=== PATIENT | female | born 1945 | race Caucasian/White ===

== ENCOUNTER 2025-10-02 09:46 | Inpatient (IN) ==
--- NOTE | 2025-10-02 10:26 | ED Physician Documentation ---
History of Present Illness Stated complaint Stated Complaint: GI Chief complaint Chief Complaint: Abd Pain Additonal information Additional information: Patient is a 72-year-old female who does not cite an extensive medical history presenting with multiple days of abdominal distension and pain. She states that she lives alone and about 11 days ago was when she had her last bowel movement. She states that since that time she has had persistent pain in her abdomen and significant distention. She states that due to her symptoms she has had no ability to get out of her house, has not had any food to eat or drink for the last couple days. She did not have any more groceries in her home. She states her abdominal pain is a 9 out of 10. She states that she has not been urinating much. She denies fever or chills. Denies chest pain or shortness of breath. She states that she has never had the symptoms before. She denies significant history of intra-abdominal problems, but does state that she has a surgical history of hysterectomy previously. She otherwise states that she has no problems with her heart, lungs, kidneys, liver. She has never had liver failure. Review of Systems Status of ROS: See HPI Meds/Allgy Home Medications Ambulatory Orders Medication Instructions Recorded Confirmed atorvastatin 20 mg tablet 20 mg PO QPM 10/02/25 valsartan 160 mg tablet 160 mg PO QAM 10/02/2510/02 valsartan 80 mg tablet 80 mg PO QAM 10/02/25 Allergies Allergies Allergy/AdvReac Type Severity Reaction Status Date / Time diphenhydramine (From Allergy Mild Paranoid Verified 10/02/25 10:03 Benadryl) PFSH Active Problems All Active Problems (Updated 10/02/25 @ 19:13 by Dallas Waters DO) Goals of care, counseling/discussion (Acute) Hypophosphatemia (Acute) Spinal stenosis (Acute) Hypertension (Chronic) Hypokalemia (Acute) Dehydration (Acute) Sigmoid volvulus (Acute) Medical History Medical History (Updated 10/02/25 @ 19:13 by Dallas Waters DO) Hypercholesterolemia Surgical History Surgical History (Updated 10/02/25 @ 17:15 by Lilian Townsend CRNA) H/O: hysterectomy Social History Social History (Updated 11/26/25 @ 17:18 by Lilian Townsend CRNA) Smoking Status: Former smoker If you are a former smoker, when did you quit? (Date/Year): 1980 Level: Independent Do you feel safe in your home environment?: Yes History of physical, verbal, emotional, or financial abuse?: No ETOH Use: None Substance Use: denies use Exam Exam Vital Signs: Vital Signs x48h Temp Pulse Resp BP Pulse Ox 10/02/25 11: 99 18 171/107 H 97 10/02/25 10:56 92 18 159/96 H 97 10/02/25 10:22 91 18 161/90 H 97 10/02/25 10:07 95 18 120/89 97 10/02/25 10:04 36.8 C 110 H 20 104/70 99 Constitutional Appears cachectic, pale. Dry lips, appears dry with dry mucous memranes. HENMT normocephalic Eyes PERRL and conjunctivae normal Neck/C-Spine cervical full ROM noted Respiratory breath sounds equal bilaterally, normal respiratory effort, clear to auscultation bilaterally and no wheezes Cardiovascular normal heart rate noted, regular rhythm noted, no murmur and peripheral pulses 2+ throughout Gastrointestinal Significant distension to her abdomen, tympanitic, with decreased bowl sounds. Tenderness to palpation diffusely throughout her abdomen. Genitourinary no CVA tenderness Neurology Oriented x3. CN II-XII intact. Moving all extremities. Sensation grossly intact throughout habitus. Psychiatry Intermittently does not follow with conversation well, trails off at times in discussion Skin Pallor present. Results Vitals Vitals: Vital Signs - 24 hr 10/02/25 10:04 10/02/25 10:07 10/02/25 10:22 Temperature 36.8 C Temperature Source Temporal Artery Scan Pulse Rate 110 H 95 91 Respiratory Rate 20 18 18 Blood Pressure 104/70 120/89 161/90 H O2 Saturation 99 97 97 O2 Source Room air Room air Room air Pain Intensity 7 9 9 10/02/25 10:40 10/02/25 10:56 10/02/25 11:26 Temperature Temperature Source Pulse Rate 92 99 Respiratory Rate 18 18 Blood Pressure 159/96 H 171/107 H O2 Saturation 97 97 O2 Source Room air Room air Pain Intensity 9 7 7 10/02/25 12:30 10/02/25 12:56 10/02/25 13:14 Temperature Temperature Source Pulse Rate 97 107 H Respiratory Rate 18 22 Blood Pressure 152/93 H 166/102 H O2 Saturation 97 96 O2 Source Room air Room air Pain Intensity 5 9 10/02/25 13:16 10/02/25 13:26 Temperature Temperature Source Pulse Rate 102 H Respiratory Rate 19 Blood Pressure 153/90 H O2 Saturation 98 O2 Source Room air Pain Intensity 9 8 Oxygen O2 Source Room air Labs Labs: Laboratory Tests 10/02/25 10/02/25 10:26 10:44 WBC 20.6 H RBC 4.61 Hgb 14.4 Hct 39.9 MCV 86.6 MCH 31.2 H MCHC 36.1 H RDW 11.9 L Plt Count 451 H MPV 8.9 Neut # (Auto) Not Reportable Lymph # (Auto) Not Reportable [place] # (Auto) Not Reportable Eos # (Auto) Not Reportable Baso # (Auto) Not Reportable Absolute Nucleated RBC Not Reportable Total Counted 100 Band Neuts % (Manual) 0 Abnorm Lymph % (Manual) 0 Metamyelocytes % 1 H Nucleated RBC % Not Reportable Neutrophils # (Manual) 17.7 H Lymphocytes # (Manual) 1.6 Monocytes # (Manual) 1.0 Eosinophils # (Manual) 0.0 Basophils # (Manual) 0.0 Differential Comment MANUAL DIFFERENTIAL WBC Morphology 1+ SMUDGE CELLS Platelet Estimate INCREASED (>450,000) Platelet Morphology NORMAL APPEARANCE RBC Morph Micro Appear NORMAL APPEARANCE Sodium 131 L Potassium 2.1 L* Chloride 94 L Carbon Dioxide 27 Anion Gap 10.0 BUN 29 H Creatinine 0.8 Estimated GFR (MDRD) 69 L Glucose 108 H Lactic Acid 0.9 Calcium 10.3 Total Bilirubin 1.1 H AST 27 ALT 35 Alkaline Phosphatase 83 Total Protein 6.2 L Albumin 4.1 Globulin 2.1 Albumin/Globulin Ratio 2.0 Lipase 21 PD Medical Decision Making ED course ED course: Assessment: Patient Is a 72 year old female with no reported past medical history presenting with 11 days of persistent abdominal distension and pain. Appears cachectic on pale on rival. Differential: includes but is not limited to, large bowel obstruction, SBO, sigmoid volvulus, bowel perforation, colon cancer, etcetera. Work up: CBC with the White Count of 20.6. CMP with notable decrease in potassium to 2.1. Sodium 131. BUN 29. Lactic acid 0.9. Cr 0.8. Lipase wnl. CT abdomen demonstrates acute sigmoid volvulue, right sided hydronephrosis. No evidence of perforation. Treatment: Fentanyl, 40 meq IV potassium Discussion: I discussed her presentation with phonograph cartridge assembler surgeon, who initially attempted to reduce her sigmoid volvulus at the bedside. This was unsuccessful. Therefore, patient was admitted to ICU with surgical team for electrolyte repletion, and likely surgical intervention. Patient appeared gravely ill during my evaluation though she remained hemodynamically stable. During my shift she was transferred to the ICU. Discharge Plan Discharge Patient Disposition: [facility] DC/Xfer Condition: Serious Clinical Impression: Sigmoid volvulus Interventions: ED Admission Assessment Last Done: 10/02/25 15:20 Vitals documented within 30 minutes of discharge?: Yes
[2025-10-02] MEDS: SODIUM CHLORIDE 0.9% 1,000 ML IV STA (10:29)
[2025-10-02 10:36] LABS: HCT - HEMATOCRIT 39.9 % (37.0-47.0); HGB - HEMOGLOBIN 14.4 g/dL (12.0-16.0); MEAN PLATELET VOLUME 8.9 fL (7.9-10.8); PLT - PLATELET COUNT 451 10^3/uL (130-450); RED CELL DISTRIBUTION WIDTH 11.9 % (12.0-15.0)
[2025-10-02 10:37] LABS: ABNORMAL LYMPHS % (MANUAL) 0 %; BAND NEUTROPHILS % (MANUAL) 0 %; BASOPHILS # (MANUAL) 0.0 10^3/uL (0-0.1); EOSINOPHILS # (MANUAL) 0.0 10^3/uL (0-0.7)
[2025-10-02] MEDS: fentaNYL 100 MCG/2 ML VIAL IVP STA ×2 (10:40→13:16)
[2025-10-02 10:53] LABS: LYMPHOCYTES # (MANUAL) 1.6 10^3/uL (1.5-3.5); LYMPHOCYTES % (MANUAL) 8 %; METAMYELOCYTES % (MANUAL) 1 %; MONOCYTES # (MANUAL) 1.0 10^3/uL (0.0-1.0); NEUTROPHILS # (MANUAL) 17.7 10^3/uL (1.5-6.6)
[2025-10-02 10:54] LABS: PLATELET ESTIMATE, MANUAL INCREASED (>450,000) (NORMAL); PLATELET MORPHOLOGY NORMAL APPEARANCE (NORMAL); RBC MORPHOLOGY (MULTIPLE) NORMAL APPEARANCE (NORMAL); WBC MORPHOLOGY (MULTIPLE) 1+ SMUDGE CELLS (NORMAL)
[2025-10-02 11:05] LABS: ALT ALANINE AMINOTRANSFERASE 35.0 IU/L (10-60); AST ASPARTATE AMINOTRANSFERASE 27.0 IU/L (10-42); BUN - BLOOD UREA NITROGEN 29.0 mg/dL (6-20); CARBON DIOXIDE - CO2 27.0 mmol/L (21-32); CREATININE 0.8 mg/dL (0.6-1.3); GFR - MDRD 69.0 (>89)
[2025-10-02] MEDS: POTASSIUM CHLOR 10 MEQ/100 ML 10 MEQ/100 ML BAG IV SCH (11:18)
--- NOTE | 2025-10-02 12:22 | CT Report ---
PROCEDURE: CT Abdomen/Pelvis W INDICATIONS: Concern for bowel obstruction CONTRAST: PROCEDURE: CT Abdomen/Pelvis W INDICATIONS: Concern for bowel obstruction CONTRAST: [id number] 100ML TECHNIQUE: After the administration of intravenous contrast, a CT scan of the abdomen and pelvis was performed. Images were recorded and evaluated at appropriate window settings. Reformats: coronal and sagittal. For radiation dose reduction, the following was used: automated exposure control, adjustment of mA and/or kV according to patient size. COMPARISON: None. FINDINGS: Image quality: Diagnostic. Lower chest: Trace pleural effusion and compressive atelectasis. Coronary calcifications. Liver: Segment 7 simple cyst. Gallbladder: Gallbladder extrinsically compressed. Mild intrahepatic biliary duct dilation. Biliary tree: No intrahepatic or extrahepatic dilation, accounting for age. Spleen: No splenomegaly. Pancreas: No pancreatic ductal dilation. Adrenals: No adrenal nodule. Kidneys and ureters: Mild right hydronephrosis and distention of the proximal ureter likely due to extrinsic compression. Stomach and bowel: Sigmoid volvulus at the rectosigmoid junction with maximum colonic diameter 10.5 cm. No evidence of perforation. Small bowel is decompressed. Appendix: Normal. Peritoneum: No pathologic free fluid. Lymph nodes: No central or retroperitoneal adenopathy. Vessels: No infrarenal aortic aneurysm. Reproductive organs: Unremarkable. Bladder: No abnormal bladder wall thickening. No calcified bladder stones. Pelvic lymph nodes: No adenopathy by size criteria. Bones: No aggressive osseous lesion. Other: Abdominal wall is intact. IMPRESSION: Acute sigmoid volvulus without evidence of perforation but with extrinsic compression of the right ureter with mild right hydronephrosis. Acute findings discussed with Dr. Rios at approximately 12:15 p.m. PST 11/01/2025. Reviewed by: Andrae Padilla MD on 10/02/2025 12:18 PM PST Approved by: Andrae Padilla MD on 10/02/2025 12:18 PM PST Station ID: [id number]
--- NOTE | 2025-10-02 13:11 | CONSULTATION NOTE ---
Chief Complaint Chief Complaint Chief Complaint: Abdominal pain History of Present Illness History of Present Illness HPI Comment/Other: 72 yo F w/out significant past medical history who presented on 10/02 with multiple days of abdominal distension and pain. She states that she lives alone, and about 11 days ago was when she had her last bowel movement, that bowel movement she states though was only like clear mucous. Since that time she has had persistent pain in her abdomen (07/17), and significant distention. Due to her symptoms she has had no ability to get out of her house and has not had anything to eat or drink for the last couple days. She also cites decreased urination. She denies fever, chills, chest pain or shortness of breath. She states that she has never had the symptoms before. She denies significant history of intra-abdominal problems, but does state that she has a surgical history of hysterectomy. She otherwise states that she has no problems with her heart, lungs, kidneys, liver. PFSH Active Problems All Active Problems (Updated 10/02/25 @ 13:22 by David Prasad MD) Hypokalemia (Acute) Dehydration (Acute) Sigmoid volvulus (Acute) Social History Social History Smoking Status: Unknown if ever smoked Do you feel safe in your home environment?: Yes History of physical, verbal, emotional, or financial abuse?: No Meds/Allgy Allergies Allergies Allergy/AdvReac Type Severity Reaction Status Date / Time diphenhydramine (From Allergy Mild Paranoid Verified 10/02/25 10:03 Benadryl) Results Lab Results Lab results reviewed: Yes 10/02/25 10:26 10/02/25 10:44 Other Lab Results: Lab Results x24hrs 10/02/25 10/02/25 Range/Units 10:44 10:26 WBC 20.6 H (4.8-10.8) x10^3/uL RBC 4.61 (4.20-5.40) 10^6/uL Hgb 14.4 (12.0-16.0) g/dL Hct 39.9 (37.0-47.0) % MCV 86.6 (81.0-99.0) fL MCH 31.2 H (27.0-31.0) pg MCHC 36.1 H (32.0-36.0) g/dL RDW 11.9 L (12.0-15.0) % Plt Count 451 H (130-450) 10^3/uL MPV 8.9 (7.9-10.8) fL Neut # (Auto) Not Reportable Lymph # (Auto) Not Reportable [place] # (Auto) Not Reportable Eos # (Auto) Not Reportable Baso # (Auto) Not Reportable Absolute Nucleated RBC Not Reportable Total Counted 100 Band Neuts % (Manual) 0 (0 - 10) % Abnorm Lymph % (Manual) 0 % Metamyelocytes % 1 H ( - 0) % Nucleated RBC % Not Reportable Neutrophils # (Manual) 17.7 H (1.5-6.6) 10^3/uL Lymphocytes # (Manual) 1.6 (1.5-3.5) 10^3/uL Monocytes # (Manual) 1.0 (0.0-1.0) 10^3/uL Eosinophils # (Manual) 0.0 (0-0.7) 10^3/uL Basophils # (Manual) 0.0 (0-0.1) 10^3/uL Differential Comment MANUAL DIFFERENTIAL WBC Morphology 1+ SMUDGE CELLS (NORMAL) Platelet Estimate INCREASED (>450,000) (NORMAL) Platelet Morphology NORMAL APPEARANCE (NORMAL) RBC Morph Micro Appear NORMAL APPEARANCE (NORMAL) Sodium 131 L (135-145) mmol/L Potassium 2.1 L* (3.5-4.5) mmol/L Chloride 94 L (101-111) mmol/L Carbon Dioxide 27 (21-32) mmol/L Anion Gap 10.0 (6-13) BUN 29 H (6-20) mg/dL Creatinine 0.8 (0.6-1.3) mg/dL Estimated GFR (MDRD) 69 L (>89) Glucose 108 H (74-104) mg/dL Lactic Acid 0.9 (0.5-2.2) mmol/L Calcium 10.3 (8.5-10.3) mg/dL Total Bilirubin 1.1 H (0.2-1.0) mg/dL AST 27 (10-42) IU/L ALT 35 (10-60) IU/L Alkaline Phosphatase 83 (42-121) IU/L Total Protein 6.2 L (6.4-8.9) g/dL Albumin 4.1 (3.2-5.5) g/dL Globulin 2.1 (2.1-4.2) g/dL Albumin/Globulin Ratio 2.0 (1.0-2.2) Lipase 21 (11-82) U/L Diagnostic Imaging Results Diagnostic Imaging Results: positive Final report reviewed and Read independently Review of Systems Status of ROS: 10 or more systems reviewed and unremarkable except as noted in history and below Exam Exam Vital Signs: Vital Signs x48h Temp Pulse Resp BP Pulse Ox 10/02/25 12:30 97 18 152/93 H 97 10/02/25 11:26 99 18 171/107 H 97 10/02/25 10:56 92 18 159/96 H 97 10/02/25 10:22 91 18 161/90 H 97 10/02/25 10:07 95 18 120/89 97 10/02/25 10:04 36.8 C 110 H 20 104/70 99 Constitutional abnormal general appearance (frail appearing) and no apparent distress HENMT normocephalic and head/scalp atraumatic Eyes Dried lips with signs of severe dehydration. Neck/C-Spine visual inspection normal Respiratory normal respiratory effort Cardiovascular normal heart rate noted and regular rhythm noted Gastrointestinal Abdomen significantly distended and tympanitic with tenderness to palpation. Extremities normal to inspection Neurology GCS 15 Psychiatry oriented x3 and cooperative Skin skin color normal Conclusion/Plan Problem List (1) Sigmoid volvulus: (2) Dehydration: (3) Hypokalemia: Plan 72 yo F w/out significant past medical history who presented on 10/02 with multiple days of abdominal distension and pain. On physical exam she has significant abdominal distension and tympany concerning for obstruction or free air. CT demonstrates acute sigmoid volvulus without signs of perforation. - Will attempt bedside decompression with rigid proctoscopy - If successful will place decompressive tube and admit for monitoring with staged sigmoidectomy - If unsuccessful will plan for OR later when safe for anesthesia - Recommend ICU admission for correction of her hypokalemia - Will discuss with medicine - Discussed with patient and ED provider Lab Results Lab results reviewed: Yes 10/02/25 10:26 10/02/25 10:44 Diagnostic Imaging Results Diagnostic Imaging Results: positive Final report reviewed and Read independently
--- NOTE | 2025-10-02 13:48 | HISTORY & PHYSICAL EXAMINATION ---
Chief Complaint Chief Complaint Chief Complaint: Abdominal distension, constipation History of Present Illness Admitted From Admitted From:: ED History Obtained From Records Reviewed: [facility] History obtained from: EMR, Patient, Surgeon, ED Provider Exam Limitations: Patient is fatigued and disoriented from multiple procedures, Narcotics History of Present Illness HPI Comment/Other: Exam is limited as the patient had just received IV Dilaudid for pain. She had just been through a central line placement as well as a proctoscopic attempted decompression. Yesenia is a 80-year-old female with past medical history of hypertension hyperlipidemia who presents with 2 weeks of constipation. She says that she had abdominal distention, constipation, and abdominal pain that started around 09/20. This is gotten worse over that time. She is unclear on why she has not come to seek care earlier. She says that most of her primary care is on the [facility], and she is unable to get over there for regular visits. She had a fall on the without any subsequent injury. But she was unable to get up given her abdominal pain and general malaise. Her pain and weakness have progressed over the last 2 weeks. She has been unable to leave the house. She has not eaten or drank anything since she ran out of groceries 2 to 3 days ago. She is not urinating. She denies any fever/chills, chest pain, dyspnea, nausea or vomiting. With regard to her history, she says that she is generally pretty healthy. She sees a farmworker with [facility]. She has primary care through [facility]. Her only medicines are valsartan and atorvastatin. She says she was only recently started on atorvastatin. She has had a hysterectomy previously. She was told after her last colonoscopy that she may have "an elongated colon", but she "never followed up on it". She is very perseverant about the fact that she has been working on finishing up her will over the last month. She thinks it is done, still needs to sign it. She wishes to be full code this hospitalization so she can get home and sign her well. She is quite ruminative about this. Since getting to the hospital, she was found to have a sigmoid volvulus on imaging. General surgery has been consulted. They attempted a proctoscopic decompression at bedside. This was unsuccessful. She is also found to be hypokalemic. She is receiving potassium supplementation before being taken back for sigmoidectomy by general surgery. Central line was placed by the anesthesiology team. Meds/Allgy Home Medications Ambulatory Orders Medication Instructions Recorded Confirmed atorvastatin 20 mg tablet 20 mg PO QPM 10/02/25 valsartan 160 mg tablet 160 mg PO QAM 10/02/2510/02 valsartan 80 mg tablet 80 mg PO QAM 10/02/25 Allergies Allergies Allergy/AdvReac Type Severity Reaction Status Date / Time diphenhydramine (From Allergy Mild Paranoid Verified 10/02/25 10:03 Benadryl) PFSH Active Problems All Active Problems (Updated 10/02/25 @ 19:13 by Dallsa Waters DO) Goals of care, counseling/discussion (Acute) Hypophosphatemia (Acute) Spinal stenosis (Acute) Hypertension (Chronic) Hypokalemia (Acute) Dehydration (Acute) Sigmoid volvulus (Acute) Medical History Medical History (Updated 10/02/25 @ 19:13 by Dallas Waters DO) Hypercholesterolemia Surgical History Surgical History (Updated 10/02/25 @ 17:15 by Lilian Townsend CRNA) H/O: hysterectomy Social History Social History (Updated 10/02/25 @ 17:18 by Lilian Townsend CRNA) Smoking Status: Former smoker If you are a former smoker, when did you quit? (Date/Year): 1980 Level: Independent Do you feel safe in your home environment?: Yes History of physical, verbal, emotional, or financial abuse?: No ETOH Use: None Substance Use: denies use Exam Exam Vital Signs: Vital Signs x48h Temp Pulse Pulse Resp BP BP Pulse Ox 10/02/25 19:00 37.1 C 99 21 152/79 H 96 10/02/25 18:00 37.1 C 103 H 23 144/83 H 96 10/02/25 17:15 114 H 22 141/89 H 98 10/02/25 17:00 113 H 20 139/103 H 98 10/02/25 16:00 94 23 163/89 H 97 10/02/25 15:50 36.7 C 96 26 H 165/90 H 96 10/02/25 15:20 94 18 162/86 H 98 10/02/25 15:02 95 18 166/85 H 97 10/02/25 14:30 99 18 161/64 H 97 10/02/25 14:00 97 18 162/85 H 97 10/02/25 14:00 100 18 164/94 H 97 10/02/25 13:26 102 H 19 153/90 H 98 10/02/25 12:56 107 H 22 166/102 H 96 10/02/25 12:30 97 18 152/93 H 97 10/02/25 11:26 99 18 171/107 H 97 GEN: No acute distress HEENT: NC/AT, normal appearance of external ears and nose. Hearing baseline. Mucous membranes are moist. Cardiac: Rapid but regular rhythm. No significant murmurs appreciated. No lower extremity edema. Pulm: Lungs CTA bilaterally, no cough, no wheezes. No adventitial lung sounds. Normal effort on room air. Abdomen: Distended taut abdomen. Tender to palpation diffusely. Tympanic. Extremities: Moves all 4 extremities equally. Normal tone. Neuro: Face symmetric, CN II through XII intact grossly. No focal neurologic deficits. Moves all extremities. Speech is fluent. Psych: Mood euthymic. Ruminative. Conclusion/Plan Problem List (1) Sigmoid volvulus: Plan: Patient presenting with nearly 2 weeks of constipation, progressive abdominal distention and pain. Found to have sigmoid volvulus with distal transition point on CT. Unsuccessful proctoscopic decompression attempted in the ED. Plan to normalize her hypokalemia as below, and then take for sigmoidectomy. - Discussed with general surgery, will admit to the medicine service as inpatient - General Surgery following - Keep n.p.o. - Pain management with oral and IV narcotics available - May need to start on TPN (has central line), may have delay of return for bowel function - Surgery likely this evening. (2) Dehydration: Plan: Patient has not had anything to eat or drink for 2 to 3 days prior to this hospitalization as she was unable to leave her house and ran out of groceries. Her labs actually look pretty good all things considered. Normal renal function. Hypokalemia as below additional hypophosphatemia. - Replenish electrolytes as below - On LR at 83.3 an hour - Likely TPN starting tomorrow as above (3) Hypokalemia: (4) Hypophosphatemia: Plan: Patient with K of 2.1 on admission. Phos of 1.5. In the setting of no oral intake in the last days before admission. Normal renal function. Creatinine 0.6. Central line placed by anesthesia 10/02 - Admit to ICU, on continuous telemetry monitoring - Replenish potassium 20 mEq/h x 3 - Repeat K at end of treatment - BMP a.m. - Sodium Phos repletion (5) Hypertension: Plan: Patient hypertensive in the setting of pain. She is unsure if she took her valsartan this morning. Think she did. Prior to arrival, she takes valsartan 240 mg/day. - Will hold antihypertensives at this time pending surgery - No need to acutely treat hypertension (6) Hypercholesterolemia: Plan: Only recently started on atorvastatin for primary prevention. She is on atorvastatin 20 mg every afternoon. - Will hold atorvastatin 20 mg at this time. (7) Goals of care, counseling/discussion: Plan: Full ACP note to follow tomorrow. Patient is somewhat tangential in her thinking this evening, but is clear in her wishes. She states that she has recently been working on her well. In that she states that she would likely not want any heroic measures. She says she has outlined several scenarios in her paperwork that explain what she would want done. She lives alone. No local family members. Her in 2019. He at home during COVID. They did not have much support. She wants a distant relative Luis Antonio Cardoza to be her surrogate decision maker but only an emergency events. His phone number is [phone]. He does not know she is in the hospital at this time. Despite generally not wanting heroic measures, this evening as she has yet to sign her will, she wishes to remain full code until she can finish arranging her affairs. - Patient is full code/full treatment for this hospitalization. - Luis Antonio Sony only to be contacted in an emergency situation, I will respect the patient's wish - Patient has a fiduciary service to manage her estate, and requested this information be scanned to the chart. It exists as a form titled POLST per the MIXED SIGNAL DESIGN ENGINEER Plan I spent a total of 82 minutes in the care of this patient today. This time was spent reviewing labs, vital signs, imaging, interviewing and examining the patient, and discussing plan of care with them and their other care providers. Patient is facing acute illness that poses a threat to her life and bodily function. She has a sigmoid volvulus and will require surgery. Discussed her case with general surgery today. Discussed her case with the ED, and the decision to admit the patient to the inpatient service in the ICU. [id number] Lab Results Lab results reviewed: Yes 10/02/25 10:26 10/02/25 16:21
--- NOTE | 2025-10-02 14:37 | XRAY Report ---
PROCEDURE: XR Abdomen 1 V INDICATIONS: single view abdomen TECHNIQUE: 1 view of the abdomen were acquired. COMPARISON: CT of abdomen and pelvis from the same day. FINDINGS: Surgical changes and devices: None. Bowel: Air distended bowel loops throughout abdomen. No gross pneumoperitoneum. No obvious transition Soft tissues: No masses; visualized solid organ contours appear normal in size. No suspicious abdominal calcifications. Contrast distended right renal collecting system and right ureter is seen consistent with CT finding of hydroureter. Bones: No suspicious bony abnormalities. IMPRESSION: Obstructive bowel gas pattern consistent with CT finding of sigmoid volvulus. No gross pneumoperitoneum. Right-sided hydronephrosis. Reviewed by: Konstantin Ott MD on 10/02/2025 2:34 PM PST Approved by: Konstantin Ott MD on 10/02/2025 2:34 PM PST Station ID: [id number]
--- NOTE | 2025-10-02 15:00 | PROCEDURE REPORT ---
Hospitalist Procedure Note Procedure Note Procedure Note: Patient was first correctly identified in the emergency room and then was educated on the risks and benefits of undergoing a rigid proctoscopy for relief of her sigmoid volvulus. The consent was then signed and a timeout was performed. Patient was then positioned on the left side and a well-lubricated proctoscope was then inserted into the rectum advanced as far as possible to the sigmoid colon where an area of dusky mucosa and twisting was appreciated. Despite repeat efforts we were unable to relieve the volvulus doing this and eventually discontinued efforts over concerns for continual pressure might cause perforation with the dusky area of mucosa. The proctoscope was then removed and it was discussed with the patient that the procedure was unsuccessful. We then reevaluate the patient's abdomen which again appeared to be distended and ty mpanitic without peritonitis. A abdominal x-ray was then performed which demonstrated again the sigmoid volvulus without signs of perforation and free air. This template was used for the procedure note as its the only appropriate template.
[2025-10-02] MEDS ORDERED: oxyCODONE 5 MG TABLET PO PRN (15:32)
[2025-10-02] MEDS ORDERED: ACETAMINOPHEN 325 MG TABLET PO PRN (15:32)
[2025-10-02] MEDS: POTASSIUM CHLOR 10 MEQ/100 ML 10 MEQ/100 ML BAG IV STA ×3 (15:46)
[2025-10-02] MEDS: HYDROmorphone 0.5 MG/0.5 ML SYRINGE IVP PRN (16:03)
[2025-10-02] MEDS: LACTATED RINGERS 1,000 ML IV SCH (16:13)
--- NOTE | 2025-10-02 16:19 | PHARMACY PROGRESS NOTE ---
Best Possible Medication History Admit Date and Time: 10/02/25 1338 Home Medications Medication Instructions Recorded Confirmed Type atorvastatin 20 mg tablet 20 mg PO QPM 10/02/25 History valsartan 160 mg tablet 160 mg PO QAM 10/02/2510/02 History valsartan 80 mg tablet 80 mg PO QAM 10/02/25 History Processed by: Pharmacy Medications reviewed in ED?: No Medication History completed: Yes Patient Interview: Completed Secondary Source(s): Pharmacy records [facility] Statement: As the person ultimately responsible for medication therapy, providers are able to order a medication from an existing home medication list in [facility] via the "Reconcile Routine" prior to Confirmation of that medication by senior support analyst. Such practice is discouraged except when the physician, in their clinical judgment, deems that a medical need exists for a medication without regard to previous use.
[2025-10-02] MEDS: POTASSIUM CHLOR 20 MEQ/100 ML 20 MEQ/100 ML BAG IV SCH (16:28)
[2025-10-02] MEDS: SODIUM CHLORIDE FLUSH 0.9% 10 ML SYRINGE IVP SCH (16:35)
--- NOTE | 2025-10-02 16:43 | ANESTHESIA PROCEDURE NOTE ---
Anesth Central Line Template Central Line Procedure Date: 10/02/25 Central Line Preparation: Consent Obtained Central line location: Right IJ Central line type: Triple lumen Central line catheter tip site resides: Atrium, right Central line aftercare: Chlorhexidine disc placed, Secured, Placement confirmed, No pneumothorax, No complications, Bundle checklist complete and Pt tolerated well
[2025-10-02 16:45] LABS: PHOSPHORUS 1.5 mg/dL (2.5-5.0)
--- NOTE | 2025-10-02 16:45 | XRAY Report ---
PROCEDURE: XR Chest for Line Placement INDICATIONS: line placement TECHNIQUE: One view of the chest was acquired. COMPARISON: None. FINDINGS: Surgical changes and devices: Right internal jugular central venous catheter tip is in lower SVC/right atrium.. Lungs and pleura: No pleural effusions or pneumothorax. Left basilar atelectasis is seen. No definite focal infiltrate. Mediastinum: Tortuous thoracic aorta. Heart size is mildly enlarged. Bones and chest wall: No suspicious bony lesions. Overlying soft tissues appear unremarkable. IMPRESSION: Right internal jugular central venous catheter tip is in lower SVC/right atrium. No pneumothorax. Left basilar atelectasis. No definite focal infiltrate Reviewed by: Konstantin Ott MD on 10/02/2025 4:42 PM PST Approved by: Konstantin Ott MD on 10/02/2025 4:42 PM PST Station ID: [id number]
--- NOTE | 2025-10-02 16:45 | ANESTHESIA PROCEDURE NOTE ---
Pre-Anesthesia VS, & Labs Diagnosis Surgical Diagnosis:: volvulus Procedure Procedure: large bowel resection with colostomy Vitals Vital Signs: Temp Pulse Resp BP Pulse Ox 36.7 C 94 23 163/89 H 97 10/02/25 15:50 10/02/25 16:00 10/02/25 16:00 10/02/25 16:00 10/02/25 16:00 Is Patient ?: No Lab Results Current Lab Results: Laboratory Tests 10/02/25 10:44: Sodium 131 L, Potassium 2.1 L*, Chloride 94 L, Carbon Dioxide 27, Anion Gap 10.0, BUN 29 H, Creatinine 0.8, Estimated GFR (MDRD) 69 L, Glucose 108 H, Lactic Acid 0.9, Calcium 10.3, Total Bilirubin 1.1 H, AST 27, ALT 35, Alkaline Phosphatase 83, Total Protein 6.2 L, Albumin 4.1, Globulin 2.1, Albumin/Globulin Ratio 2.0, Lipase 21 10/02/25 10:26: WBC 20.6 H, RBC 4.61, Hgb 14.4, Hct 39.9, MCV 86.6, MCH 31.2 H, MCHC 36.1 H, RDW 11.9 L, Plt Count 451 H, MPV 8.9, Neut # (Auto) Not Reportable, Lymph # (Auto) Not Reportable, Glasscock # (Auto) Not Reportable, Eos # (Auto) Not Reportable, Baso # (Auto) Not Reportable, Absolute Nucleated RBC Not Reportable, Total Counted 100, Band Neuts % (Manual) 0, Abnorm Lymph % (Manual) 0, M etamyelocytes % 1 H, Nucleated RBC % Not Reportable, Neutrophils # (Manual) 17.7 H, Lymphocytes # (Manual) 1.6, Monocytes # (Manual) 1.0, Eosinophils # (Manual) 0.0, Basophils # (Manual) 0.0, Differential Comment MANUAL DIFFERENTIAL, WBC Morphology 1+ SMUDGE CELLS, Platelet Estimate INCREASED (>450,000), Platelet Morphology NORMAL APPEARANCE, RBC Morph Micro Appear NORMAL APPEARANCE 10/02/25 10:26 10/02/25 10:44 Meds/Allgy Home Medications Ambulatory Orders Medication Instructions Recorded Confirmed atorvastatin 20 mg tablet 20 mg PO QPM 10/02/25 valsartan 160 mg tablet 160 mg PO QAM 10/02/2510/02 valsartan 80 mg tablet 80 mg PO QAM 10/02/25 Allergies Allergies Allergy/AdvReac Type Severity Reaction Status Date / Time diphenhydramine (From Allergy Mild Paranoid Verified 10/02/25 10:03 Benadryl) PFSH Active Problems All Active Problems (Updated 10/02/25 @ 17:17 by Lilian Townsend CRNA) Spinal stenosis (Acute) Hypertension (Chronic) Hypokalemia (Acute) Dehydration (Acute) Sigmoid volvulus (Acute) Medical History Medical History (Updated 10/02/25 @ 17:17 by Lilian Townsend CRNA) Hypercholesterolemia Surgical History Surgical History (Updated 10/02/25 @ 17:15 by Lilian Townsend CRNA) H/O: hysterectomy Social History Social History (Updated 10/02/25 @ 17:18 by Lilian Townsend CRNA) Smoking Status: Former smoker Do you feel safe in your home environment?: Yes History of physical, verbal, emotional, or financial abuse?: No ETOH Use: None Substance Use: denies use POLST POLST CPR Status: Attempt Resuscitation (CPR) Level of Medical Intervention: Full Treatment Anesthesia Exam (Expanded) Exam General: Alert, Oriented x3 and Cooperative Dental: WNL Mouth Openin Fingerbreadth Neck Mobility: Normal Mallampati classification: I Thyromental Distance: 4-6 cm Respiratory: Lungs clear Cardiovascular: Regular rate Mental/Cognitive Status: Lethargic Exam Exam Vital Signs: Vital Signs x48h Temp Pulse Pulse Resp BP BP Pulse Ox 10/02/25 16:00 94 23 163/89 H 97 10/02/25 15:50 36.7 C 96 26 H 165/90 H 96 10/02/25 15:20 94 18 162/86 H 98 10/02/25 15:02 95 18 166/85 H 97 10/02/25 14:30 99 18 161/64 H 97 10/02/25 14:00 97 18 162/85 H 97 10/02/25 14:00 100 18 164/94 H 97 10/02/25 13:26 102 H 19 153/90 H 98 10/02/25 12:56 107 H 22 166/102 H 96 10/02/25 12:30 97 18 152/93 H 97 10/02/25 11:26 99 18 171/107 H 97 10/02/25 10:56 92 18 159/96 H 97 10/02/25 10:22 91 18 161/90 H 97 10/02/25 10:07 95 18 120/89 97 10/02/25 10:04 36.8 C 110 H 20 104/70 99 Plan Problem List (1) Sigmoid volvulus: (2) Dehydration: (3) Hypokalemia: (4) H/O: hysterectomy: (5) Hypertension: (6) Hypercholesterolemia: (7) Spinal stenosis: Plan 72 yo F w/out significant past medical history who presented on 10/02 with multiple days of abdominal distension and pain. On physical exam she has significant abdominal distension and tympany concerning for obstruction or free air. CT demonstrates acute sigmoid volvulus without signs of perforation. - Will attempt bedside decompression with rigid proctoscopy - If successful will place decompressive tube and admit for monitoring with staged sigmoidectomy - If unsuccessful will plan for OR later when safe for anesthesia - Recommend ICU admission for correction of her hypokalemia - Will discuss with medicine - Discussed with patient and ED provider Plan Anesthesia Type: General Consent for Procedure(s) Verified and Reviewed: Yes Code Status: Attempt Resuscitation ASA Classification ASA classification: 2-Mild systemic disease Is this case an emergency?: Yes
[2025-10-02] MEDS ORDERED: NOREPINEPHRINE/0.9 % NS 8 MG/250 ML BAG IV ONE (16:50)
[2025-10-02 16:55] LABS: BUN - BLOOD UREA NITROGEN 24.0 mg/dL (6-20); CARBON DIOXIDE - CO2 23.0 mmol/L (21-32); CREATININE 0.6 mg/dL (0.6-1.3); GFR - MDRD 97.0 (>89)
[2025-10-02] MEDS ORDERED: fentaNYL 100 MCG/2 ML VIAL IVP PRN (17:19)
[2025-10-02] MEDS ORDERED: NALOXONE 0.4 MG/ML VIAL IVP PRN (17:19)
[2025-10-02] MEDS ORDERED: ONDANSETRON 4 MG/2 ML VIAL IVP PRN (17:19)
[2025-10-02] MEDS ORDERED: ATROPINE ABBOJECT 1 MG/10 ML SYRINGE IVP PRN (17:19)
[2025-10-02] MEDS ORDERED: HYDROmorphone 0.5 MG/0.5 ML SYRINGE IVP PRN (17:19)
[2025-10-02] MEDS ORDERED: ePHEDrine 50 MG/ML VIAL IVP PRN (17:19)
[2025-10-02] MEDS: SODIUM PHOSPHATE 21 MMOL in SODIUM CHLORIDE 0.9% 250 ML IV ONE (17:42)
[2025-10-02] MEDS ORDERED: BUPIVACAINE 0.25% PF 30 ML VIAL ONE (19:29)
[2025-10-02] MEDS ORDERED: fentaNYL 100 MCG/2 ML VIAL ONE ×2 (19:33→23:14)
[2025-10-02] MEDS ORDERED: LIDOCAINE-PF 2% 10 ML AMP SUBQ ONE (19:33)
[2025-10-02] MEDS ORDERED: PROPOFOL 200 MG/20 ML VIAL IVP ONE (19:33)
[2025-10-02] MEDS ORDERED: PHENYLEPHRINE HCL 0.5 MG/5 ML AMPULE ONE (19:34)
[2025-10-02] MEDS ORDERED: ONDANSETRON 4 MG/2 ML VIAL ONE (19:34)
[2025-10-02] MEDS ORDERED: ROCURONIUM 50 MG/5 ML VIAL ONE ×2 (19:34→21:53)
[2025-10-02] MEDS ORDERED: ePHEDrine 50 MG/ML VIAL IVP ONE (19:34)
[2025-10-02] MEDS ORDERED: POTASSIUM CHLOR IV ONE (20:03)
[2025-10-02] MEDS ORDERED: ACETAMINOPHEN 1,000 MG/100 ML 1,000 MG/100 ML BAG IV ONE (21:17)
[2025-10-02] MEDS ORDERED: HYDROmorphone 1 MG/ML CARPUJECT ONE (21:26)
[2025-10-02] MEDS ORDERED: SUGAMMADEX 200 MG/2 ML VIAL IVP ONE (22:32)
--- NOTE | 2025-10-02 23:16 | OPERATIVE REPORT ---
Operative Report General Admit Date: 10/02/25 Procedure Data: Operation Date: 10/02/25 23:00 Proposed Procedures p Exploratory Laparotomy, SMALL BOWEL RESECTION, COLOSTOMY(Not Applicable) - David Prasad MD Actual Procedures p Exploratory Laparotomy, sigmoidectomy with colostomy(Not Applicable) - David Prasad MD Pre-Op Diagnosis: Sigmoid volvulus Anesthesia Type General Case Staff Anesthesia Provider: iLlian Townsend Case Times Procedure Start: 10/02/25 21:15 Time out: 10/02/25 21:14 Pre-Op Diagnosis: Sigmoid volvulus Post Op Diagnosis: Sigmoid volvulus Procedure Note Intake, IV Amount (ml): 2,100 Estimated Blood Loss (ml): 50 Output, Urine Amount (ml): 200 Drain/Tube Type: Jose Ahmadi round drain Pathology: Sigmoid colon Indications: Sigmoid volvulus Findings: Distended sigmoid colon twisted on itself at the rectosigmoid junction, remainder of the colon was also distended all the way to the cecum, the small bowel appeared health and minimally distended and exhibited peristalsis during the case. As the colostomy was made the patient decompressed their colon with a significant amount of air and stool released. Complications: None Other Other Information/Narrative: Patient was first correctly identified in their ICU room and then wheeled to the operating room via their hospital bed. They were then made to lay on the operating room table in a supine fashion with both arms abducted to 90 degrees. The patient underwent general anesthesia induction with endotracheal intubation which she tolerated well. An NG tube was then placed by anesthesia staff and confirmed in good position with immediate return of dark gastric fluid. The abdomen was then shaved, prepped and draped in the usual surgical sterile fashion. Preoperative antibiotics were administered and a WHO timeout was called to which all were in agreement. A lower midline laparotomy was then made with a 10 blade and carried down to the level of fascia using Bovie electrocautery. The fascia was then incised in the midline and then it was noted that the colon was directly beneath the peritoneum. The peritoneum was then incised by using a 15 blade scalpel and then a finger was placed through the incision into the abdomen and used to protect the bowel as the fascial incision was then carried to the full length of the skin incision using Bovie electrocautery. A large Domingo wound protector was then placed and the sigmoid colon was eviscerated and noted to be twisted on itself at the rectosigmoid junction. The colon was then untwisted and found to be viable but significantly redundant and distended. We identified our proximal transection point and a small window was then made in the mesentery using Bovie edge cautery. A linear 75mm stapler was then used to transect the sigmoid colon at this point. A LigaSure was then used to transect the mesentery down to the rectosigmoid junction where another linear stapler was then used to transect the colon at which point the specimen was passed off for placement of specimen container. The rectum was then noted to be distended but healthy. Gentle pressure on the rectum then allowed reduction of the contents through the anus and shrinkage of the rectum to a normal size. A 3-0 Prolene was then used to imbricate the staple line at any sites of bleeding and left with long tails for later identification and reversal. The abdomen was then irrigated and noted to be with return of only clear pink fluid. Hemostasis was then assured and the abdomen was completely evaluated and there was no further signs of twisting of the bowel at any point. A circular incision was then made in the left lower abdomen for later colostomy placement. The skin was then excised and the incision was then carried down to the level of the anterior sheath in a vertical fashion using Bovie electrocautery. Once the anterior sheath was encountered it was then incised in a vertical fashion and a Casey scissor was placed through the fascia incision and used to spread the muscle beneath revealing the posterior sheath. The Domingo was then removed and a folded lap pad was placed through the incision and held against the abdominal wall under the colostomy site to protect the bowel. An incision was then made in the posterior sheath in a cruciate fashion until the lap pad was encountered. 2 fingers were then placed through the incision to confirm appropriate size. A Manuela was then placed through the incision and used to grab the colon and then pulled it through the colostomy site while maintaining orientation with the mesentery side down and avoiding any twisting of the bowel. The colon was then left in place and then covered with a blue towel. We then turned our attention back to the midline laparotomy. The abdomen was then again irrigated with return of only clear pink fluid. A 19 round JACQUE was then placed through the right lower quadrant into the abdomen laying on top of the rectal stump. This was then sutured in place using a 2-0 nylon suture. Again hemostasis was assured before closure of the fascia. The fascia was then closed using a #1 PDS running from the superior and inferior edge to meet in the middle of the incision where they were then tied together. While doing this care was taken to confirm no involvement of the omentum or bowel. The subcutaneous tissues were then reapproximated using 3-0 Vicryl sutures in a simple interrupted fashion. Skin eli were then used to close the skin. The midline incision was then covered with a blue towel and we turned our attention to colostomy formation. The staple line was then cut from the rectal stump and bleeding was then controlled using Bovie electrocautery and the LigaSure device. The colostomy was then matured in a Fang fashion using 3-0 Vicryl sutures at the 12, 3, 5, 7 and 9 o'clock positions. Any gaps between the mucosa and skin were then closed using 3-0 Vicryl suture. The colostomy was then covered with a blue towel and the abdomen was then cleaned with wet and dried with gauze and then a Mepilex dressing was used to cover the midline and a colostomy appliance was placed on the colostomy. There was immediate gas and stool in the colostomy bag after placement. At the end of the procedure all sponge, needle, and instrument counts were confirmed correct and the patient was awoken from general anesthesia and taken to their ICU room in a good condition.
[2025-10-02] MEDS ORDERED: METOPROLOL 5 MG/5 ML VIAL IVP PRN (23:55)
--- NOTE | 2025-10-03 00:20 | ANESTHESIA POST OP EVALUATION ---
Anesthesia Post Eval Post Anesthesia Eval Vitals: Last Vital Signs Temp 36.6 C 10/03/25 00:10 Pulse 131 H 10/03/25 00:10 Resp 15 10/03/25 00:10 BP 146/86 H 10/03/25 00:10 Pulse Ox 97 10/03/25 00:10 CV Function Including HR & BP: Stable Pain Control: Satisfactory Nausea & Vomiting: Negative Mental Status: Baseline Respiratory Status: Airway Patent Hydration Status: Satisfactory Anesthesia Complications: None
[2025-10-03] MEDS: HYDROmorphone 0.5 MG/0.5 ML SYRINGE IVP PRN (00:35)
[2025-10-03 04:40] LABS: HCT - HEMATOCRIT 35.2 % (37.0-47.0); HGB - HEMOGLOBIN 12.0 g/dL (12.0-16.0); MEAN PLATELET VOLUME 8.2 fL (7.9-10.8); PLT - PLATELET COUNT 341 10^3/uL (130-450); RED CELL DISTRIBUTION WIDTH 11.9 % (12.0-15.0)
[2025-10-03 04:44] LABS: VBG PH 7.312 (7.31-7.41)
[2025-10-03 04:57] LABS: ABNORMAL LYMPHS % (MANUAL) 0 %; BAND NEUTROPHILS % (MANUAL) 0 %; BASOPHILS # (MANUAL) 0.0 10^3/uL (0-0.1); BUN - BLOOD UREA NITROGEN 20.0 mg/dL (6-20); CARBON DIOXIDE - CO2 27.0 mmol/L (21-32); CREATININE 0.6 mg/dL (0.6-1.3); EOSINOPHILS # (MANUAL) 0.0 10^3/uL (0-0.7); GFR - MDRD 97.0 (>89); PHOSPHORUS 2.8 mg/dL (2.5-5.0)
[2025-10-03 05:01] LABS: LYMPHOCYTES # (MANUAL) 1.5 10^3/uL (1.5-3.5); LYMPHOCYTES % (MANUAL) 5 %; MONOCYTES # (MANUAL) 1.2 10^3/uL (0.0-1.0); NEUTROPHILS # (MANUAL) 26.5 10^3/uL (1.5-6.6)
[2025-10-03 05:42] LABS: PLATELET ESTIMATE, MANUAL NORMAL (130-450,000) (NORMAL); PLATELET MORPHOLOGY NORMAL APPEARANCE (NORMAL); RBC MORPHOLOGY (MULTIPLE) NORMAL APPEARANCE (NORMAL)
[2025-10-03 05:43] LABS: WBC MORPHOLOGY (MULTIPLE) NORMAL APPEARANCE (NORMAL)
[2025-10-03] MEDS: POTASSIUM CHLOR 20 MEQ/100 ML 20 MEQ/100 ML BAG IV SCH ×2 (05:45→16:22)
[2025-10-03] MEDS: LACTATED RINGERS 1,000 ML IV ONE (06:25)
--- NOTE | 2025-10-03 06:28 | PROVIDER PROGRESS NOTE ---
Subjective General Admit Date: 10/02/25 Procedure Date: 10/02/25 Post Op Days: 1 Procedure Performed: Ex-lap, sigmoidectomy w/ end colostomy Other Other Information/Narrative: Doing well this AM, sleeping comfortably prior to my exam, not yet OOB, lots of gas and stool decompressing into the ostomy bag overnight, UOP recently decreased, serosanguineous fluid in the JACQUE. Wound Assessment Wound/Incisions: positive Dressing dry and intact Drain Type: 19 Round JACQUE Drain Output Description: Serosanguineous Approximate mls Output: 260 Review of Systems Status of ROS: 10 or more systems reviewed and unremarkable except as noted in history and below Exam Exam Vital Signs: Vital Signs x48h Temp Pulse Pulse Resp BP BP Pulse Ox 10/03/25 06:00 37.2 C 115 H 19 116/59 L 95 10/03/25 05:00 37.0 C 104 H 12 118/60 98 10/03/25 04:00 37.1 C 113 H 11 L 99/50 L 97 10/03/25 03:00 37.1 C 115 H 10 L 115/53 L 95 10/03/25 02:30 37.2 C 110 H 14 113/57 L 100 10/03/25 02:00 37.2 C 116 H 11 L 121/59 L 100 10/03/25 01:30 110 H 13 117/60 100 10/03/25 01:15 37.2 C 110 H 12 127/66 100 10/03/25 01:00 37.1 C 111 H 10 L 127/63 100 10/03/25 00:45 37.0 C 111 H 12 118/73 100 10/03/25 00:30 36.9 C 120 H 13 138/70 H 97 10/03/25 00:10 36.6 C 131 H 15 146/86 H 97 10/03/25 00:05 36.7 C 116 H 22 153/85 H 97 10/03/25 00:00 36.5 C 116 H 20 160/87 H 95 10/02/25 23:55 36.4 C L 123 H 19 171/91 H 94 10/02/25 23:50 36.4 C L 116 H 21 154/103 H 94 10/02/25 23:45 36.4 C L 120 H 20 156/81 H 96 10/02/25 23:40 36.4 C L 117 H 26 H 170/98 H 98 10/02/25 23:35 36.4 C L 120 H 20 160/89 H 96 10/02/25 23:33 36.7 C 114 H 16 160/89 H 100 O2 Flow Rate 10/03/25 06:00 1 10/03/25 05:00 1 10/03/25 04:00 1 10/03/25 03:00 1 10/03/25 02:30 2 10/03/25 02:00 2 10/03/25 01:30 13 10/03/25 01:15 2 10/03/25 01:00 2 10/03/25 00:45 2 10/03/25 00:30 2 10/03/25 00:10 10/03/25 00:05 10/03/25 00:00 10/02/25 23:55 10/02/25 23:50 10/02/25 23:45 10/02/25 23:40 10/02/25 23:35 10/02/25 23:33 Constitutional abnormal general appearance (frail appearing) and no apparent distress HENMT normocephalic and head/scalp atraumatic Eyes Dried lips with signs of severe dehydration. Neck/C-Spine visual inspection normal Respiratory normal respiratory effort Cardiovascular heart rate abnormal (tachycardic) and regular rhythm noted Gastrointestinal Abdomen non distended and appropriately tender to palpation, midline dressing clean, dry and intact, ostomy appliance with stool in the bag, ostomy appears viable, minimal dusky mucosa at the superior border. Extremities normal to inspection Psychiatry cooperative and affect normal Skin skin color normal Impression/Plan Problem List (1) Sigmoid volvulus: (2) Dehydration: (3) Hypokalemia: (4) Hypophosphatemia: (5) Hypertension: (6) Goals of care, counseling/discussion: Plan 72 yo F w/out significant past medical history who presented on 10/02 with multiple days of abdominal distension and pain. On physical exam she has significant abdominal distension and tympany concerning for obstruction or free air. CT demonstrates acute sigmoid volvulus without signs of perforation. 10/02 Underwent bedside proctoscopy with attempted detorsion of the sigmoid so was taken to the OR for Ex-lap, sigmoidectomy and end colostomy which she tolerated well. Lots of stool decompressing from the colon overnight, per RN UOP was good but recently dropped off over the last hour. Neuro - Dilaudid for pain control - Altered after surgery so soft restraints applied - Monitor and stop restraints as soon as able CVS - HR low 100's this AM, jumped to 120 w/ stimulus - BP stable - Metoprolol ordered for sustained tachy >130 - Continue to monitor Resp - Saturating well on 1L NC - Wean O2 as able GI - Significant ostomy output overnight, can be decompressing colon as opposed to bowel function - NGT w/ minimal gastric output, D/jagjit this AM - Sips and chips this AM - UOP decreasing over the last 2 hours, LR bolus ordered - Significantly dehydrated on arrival - Maintain K>4, P>3 and Mg>2 - Continue to monitor Heme - Hgb decrease likely dilutional, continue to monitor - Start Lovenox today for DVT ppx ID - WBC elevated, reactive to surgery - No spillage in the OR, continue to monitor off abx Endo - BG's normal on labs, no h/o DM - Continue to monitor MSK - PT ordered - OOB ambulating with assistance today Lines/Drains - Maintain PIV access and TLC until recovered - Maintain Chery catheter until consistent UOP - D/c NGT this AM
[2025-10-03] MEDS: MAGNESIUM SULFATE 2 GRAM 2 GM/50 ML BAG IV ONE (06:46)
--- NOTE | 2025-10-03 07:28 | PROVIDER PROGRESS NOTE ---
Subjective Prog Note Date Prog Note Date: 10/03/25 Prog Note Time: 07:25 Subjective Subjective: Was taken for sigmoidectomy last evening at approximately 2300. Surgery reasonably well. She has a colostomy in place. Stools output from it. General surgery still following. She has a JACQUE drain in place which is draining nonpurulent serosanguineous fluid. She continues to require high doses of electrolyte repletion. She has a central line. She is exhibiting signs of refeeding syndrome. Patient overall feels great. She feels like her abdominal discomfort is much improved. She denies any fevers/chills, chest pain, nausea, vomiting. Her NG tube was removed earlier today. She is tolerating a clear liquid diet as of this afternoon. She has been somewhat manic throughout the day. Unclear if this is just a delayed effect of her anesthetic versus her baseline mentation. She seems anxious. Current Medications Current Medications Current Medications: Current Medications Generic Name Dose Route Start Last Admin Trade Name Freq PRN Reason Stop Dose Admin Acetaminophen 650 mg 10/03/25 07:00 Acetaminophen 325 Mg Tablet PO Q4H RADHA Hydromorphone HCl 1 mg 10/02/25 23:59 10/03/25 02:15 Hydromorphone 0.5 Mg/0.5 Ml Syringe IVP 1 mg Q2H PRN Administration Severe Pain (Level 7-10) Lactated Ringer's 1,000 mls @ 83.333 mls/hr 10/02/25 16:00 10/03/25 03:24 Lr IV 83.33 mls/hr .Q12H RADHA Administration Magnesium Sulfate 2 gm in 50 mls @ 25 mls/hr 10/03/25 06:29 10/03/25 06:46 Magnesium Sulfate IV 10/03/25 08:28 25 mls/hr ONCE ONE Administration Potassium Phosphate 15 mmol/ 255 mls @ 42.5 mls/hr 10/03/25 06:30 Sodium Chloride IV 10/03/25 12:29 ONCE ONE Metoprolol Tartrate 5 mg 10/02/25 23:55 Metoprolol 5 Mg/5 Ml Vial IVP Q6H PRN Tachycardia Ondansetron HCl 4 mg 10/02/25 15:32 Ondansetron Odt 4 Mg Tablet TL Q6HR PRN Nausea / Vomiting Ondansetron HCl 4 mg 10/02/25 15:32 Ondansetron 4 Mg/2 Ml Vial IVP Q6HR PRN Nausea / Vomiting Oxycodone HCl 5 mg 10/02/25 15:32 Oxycodone 5 Mg Tablet PO Q4HR PRN Pain 5 to 7 Oxycodone HCl 10 mg 10/02/25 15:32 Oxycodone 5 Mg Tablet PO Q4HR PRN Pain 8 to 10 Sodium Chloride 10 ml 10/02/25 17:00 10/03/25 00:54 Sodium Chloride Flush 0.9% 10 Ml Syringe IVP 10 ml 0100,0900,1700 RADHA Administration Sodium Chloride 10 ml 10/02/25 15:32 Sodium Chloride Flush 0.9% 10 Ml Syringe IVP PRN PRN NEEDED PER PROVIDER ORDERS Objective Vital Signs/Intake & Output Reviewed Vital Signs: Yes Vital Signs: Vital Signs x48h Temp Pulse Pulse Resp BP BP Pulse Ox 10/03/25 07:00 37.1 C 114 H 11 L 126/65 95 10/03/25 06:00 37.2 C 115 H 19 116/59 L 95 10/03/25 05:00 37.0 C 104 H 12 118/60 98 10/03/25 04:00 37.1 C 113 H 11 L 99/50 L 97 10/03/25 03:00 37.1 C 115 H 10 L 115/53 L 95 10/03/25 02:30 37.2 C 110 H 14 113/57 L 100 10/03/25 02:00 37.2 C 116 H 11 L 121/59 L 100 10/03/25 01:30 110 H 13 117/60 100 10/03/25 01:15 37.2 C 110 H 12 127/66 100 10/03/25 01:00 37.1 C 111 H 10 L 127/63 100 10/03/25 00:45 37.0 C 111 H 12 118/73 100 10/03/25 00:30 36.9 C 120 H 13 138/70 H 97 10/03/25 00:10 36.6 C 131 H 15 146/86 H 97 10/03/25 00:05 36.7 C 116 H 22 153/85 H 97 10/03/25 00:00 36.5 C 116 H 20 160/87 H 95 10/02/25 23:55 36.4 C L 123 H 19 171/91 H 94 10/02/25 23:50 36.4 C L 116 H 21 154/103 H 94 10/02/25 23:45 36.4 C L 120 H 20 156/81 H 96 10/02/25 23:40 36.4 C L 117 H 26 H 170/98 H 98 10/02/25 23:35 36.4 C L 120 H 20 160/89 H 96 10/02/25 23:33 36.7 C 114 H 16 160/89 H 100 O2 Flow Rate 10/03/25 07:00 10/03/25 06:00 1 10/03/25 05:00 1 10/03/25 04:00 1 10/03/25 03:00 1 10/03/25 02:30 2 10/03/25 02:00 2 10/03/25 01:30 13 10/03/25 01:15 2 10/03/25 01:00 2 10/03/25 00:45 2 10/03/25 00:30 2 10/03/25 00:10 10/03/25 00:05 10/03/25 00:00 10/02/25 23:55 10/02/25 23:50 10/02/25 23:45 10/02/25 23:40 10/02/25 23:35 10/02/25 23:33 Intake & Output: Intake & Output 09/30/25 10/01/25 10/02/25 10/03/25 23:59 23:59 23:59 23:59 Intake Total 6139 / 6139 1032 / 1032 Output Total 1480 / 1480 1620 / 1620 Balance 4659 / 4659 -588 / -588 Weight (kg) 60 kg 62 kg Objective Comments/Other: GEN: No acute distress, seated in chair HEENT: NC/AT, normal appearance of external ears and nose. Hearing baseline. Cardiac: Tachycardic and regular. No murmurs appreciated. Pulm: Lungs CTA bilaterally, no cough, no wheezes. Normal effort on room air Abdomen: Improvement in distention, mild distention still present. Soft, nontender. Ostomy in place in left lower quadrant. JACQUE drain midline coming out with serosanguineous drainage. Dressing CDI. Abdomen bowel tones present. Extremities: Moves all 4 extremities equally. Normal tone. Neuro: Face symmetric, CN II through XII intact grossly. No focal neurologic deficit. Psych: Mood elated. Affect heightened. Tangential thought process. Poor concentration. Good fund of knowledge. Lab Results 10/03/25 04:30 10/03/25 15:35 Other Labs: Lab Results x24hrs 10/03/25 10/02/25 10/02/25 Range/Units 04:30 19:31 16:21 WBC 29.1 H (4.8-10.8) x10^3/uL RBC 3.93 L (4.20-5.40) 10^6/uL Hgb 12.0 (12.0-16.0) g/dL Hct 35.2 L (37.0-47.0) % MCV 89.6 (81.0-99.0) fL MCH 30.5 (27.0-31.0) pg MCHC 34.1 (32.0-36.0) g/dL RDW 11.9 L (12.0-15.0) % Plt Count 341 (130-450) 10^3/uL MPV 8.2 (7.9-10.8) fL Neut # (Auto) Not Reportable Lymph # (Auto) Not Reportable [place] # (Auto) Not Reportable Eos # (Auto) Not Reportable Baso # (Auto) Not Reportable Absolute Nucleated RBC Not Reportable Total Counted 100 Band Neuts % (Manual) 0 (0 - 10) % Abnorm Lymph % (Manual) 0 % Metamyelocytes % ( - 0) % Nucleated RBC % Not Reportable Neutrophils # (Manual) 26.5 H (1.5-6.6) 10^3/uL Lymphocytes # (Manual) 1.5 (1.5-3.5) 10^3/uL Monocytes # (Manual) 1.2 H (0.0-1.0) 10^3/uL Eosinophils # (Manual) 0.0 (0-0.7) 10^3/uL Basophils # (Manual) 0.0 (0-0.1) 10^3/uL Differential Comment MANUAL DIFFERENTIAL WBC Morphology NORMAL APPEARANCE (NORMAL) Platelet Estimate NORMAL (130-450,000) (NORMAL) Platelet Morphology NORMAL APPEARANCE (NORMAL) RBC Morph Micro Appear NORMAL APPEARANCE (NORMAL) VBG pH 7.312 (7.31-7.41) Ionized Calcium 1.27 (1.09-1.30) mmol/L Sodium 138 133 L (135-145) mmol/L Potassium 3.1 L 2.9 L 2.5 L* (3.5-4.5) mmol/L Chloride 108 100 L (101-111) mmol/L Carbon Dioxide 27 23 (21-32) mmol/L Anion Gap 3.0 L 10.0 (6-13) BUN 20 24 H (6-20) mg/dL Creatinine 0.6 0.6 (0.6-1.3) mg/dL Estimated GFR (MDRD) 97 97 (>89) Glucose 95 95 (74-104) mg/dL Lactic Acid (0.5-2.2) mmol/L Calcium 8.8 9.6 (8.5-10.3) mg/dL Phosphorus 2.8 1.5 L (2.5-5.0) mg/dL Magnesium 1.9 2.3 (1.7-2.3) mg/dL Total Bilirubin (0.2-1.0) mg/dL AST (10-42) IU/L ALT (10-60) IU/L Alkaline Phosphatase (42-121) IU/L Total Protein (6.4-8.9) g/dL Albumin 3.9 (3.2-5.5) g/dL Globulin (2.1-4.2) g/dL Albumin/Globulin Ratio (1.0-2.2) Lipase (11-82) U/L Nasal Screen MRSA (PCR) (NEGATIVE) 10/02/25 10/02/25 10/02/25 Range/Units 15:30 10:44 10:26 WBC 20.6 H (4.8-10.8) x10^3/uL RBC 4.61 (4.20-5.40) 10^6/uL Hgb 14.4 (12.0-16.0) g/dL Hct 39.9 (37.0-47.0) % MCV 86.6 (81.0-99.0) fL MCH 31.2 H (27.0-31.0) pg MCHC 36.1 H (32.0-36.0) g/dL RDW 11.9 L (12.0-15.0) % Plt Count 451 H (130-450) 10^3/uL MPV 8.9 (7.9-10.8) fL Neut # (Auto) Not Reportable Lymph # (Auto) Not Reportable [place] # (Auto) Not Reportable Eos # (Auto) Not Reportable Baso # (Auto) Not Reportable Absolute Nucleated RBC Not Reportable Total Counted 100 Band Neuts % (Manual) 0 (0 - 10) % Abnorm Lymph % (Manual) 0 % Metamyelocytes % 1 H ( - 0) % Nucleated RBC % Not Reportable Neutrophils # (Manual) 17.7 H (1.5-6.6) 10^3/uL Lymphocytes # (Manual) 1.6 (1.5-3.5) 10^3/uL Monocytes # (Manual) 1.0 (0.0-1.0) 10^3/uL Eosinophils # (Manual) 0.0 (0-0.7) 10^3/uL Basophils # (Manual) 0.0 (0-0.1) 10^3/uL Differential Comment MANUAL DIFFERENTIAL WBC Morphology 1+ SMUDGE CELLS (NORMAL) Platelet Estimate INCREASED (>450,000) (NORMAL) Platelet Morphology NORMAL APPEARANCE (NORMAL) RBC Morph Micro Appear NORMAL APPEARANCE (NORMAL) VBG pH (7.31-7.41) Ionized Calcium (1.09-1.30) mmol/L Sodium 131 L (135-145) mmol/L Potassium 2.1 L* (3.5-4.5) mmol/L Chloride 94 L (101-111) mmol/L Carbon Dioxide 27 (21-32) mmol/L Anion Gap 10.0 (6-13) BUN 29 H (6-20) mg/dL Creatinine 0.8 (0.6-1.3) mg/dL Estimated GFR (MDRD) 69 L (>89) Glucose 108 H (74-104) mg/dL Lactic Acid 0.9 (0.5-2.2) mmol/L Calcium 10.3 (8.5-10.3) mg/dL Phosphorus (2.5-5.0) mg/dL Magnesium (1.7-2.3) mg/dL Total Bilirubin 1.1 H (0.2-1.0) mg/dL AST 27 (10-42) IU/L ALT 35 (10-60) IU/L Alkaline Phosphatase 83 (42-121) IU/L Total Protein 6.2 L (6.4-8.9) g/dL Albumin 4.1 (3.2-5.5) g/dL Globulin 2.1 (2.1-4.2) g/dL Albumin/Globulin Ratio 2.0 (1.0-2.2) Lipase 21 (11-82) U/L Nasal Screen MRSA (PCR) NEGATIVE (NEGATIVE) Assessment/Plan Problem List (1) Sigmoid volvulus: Impression: S/p sigmoidectomy with general surgery 10/02. Improved intervally throughout the day today. Tolerating clears without any nausea. Recall the patient presented with nearly 2 weeks of constipation. She had progressive abdominal distention and pain associated. She was found on imaging to have sigmoid volvulus with distal transition point on CT. Taken to surgery on 10/02 with successful repair. Colostomy in place left lower abdomen. Stool output present. - General Surgery following, appreciate recommendations - Advancing diet to clears, no further advancement at this time. - LR running 150/h, dropping back to 100/h overnight - Chery in place, follow strict I/O - Scheduled Tylenol for pain, 1 g 4 times daily - As needed oxycodone available for pain - PT to work with tomorrow - Replenish electrolytes as below, K>4, Mg>2, Phos>3 (2) Refeeding syndrome: (3) Hypokalemia: (4) Hypophosphatemia: Impression: Patient was not eating for several days prior to arrival. She ran out of food at her home and was unable to get out of her house because she was so unwell. She had critically low potassium on arrival. She has a central line placed and has been removed seeping potassium and phosphate replacement. - Will give an additional dose of K-Phos IV overnight tonight - Recheck Phos, mag, potassium in the morning - Continue aggressive repletion (5) Tachyarrhythmia: Impression: Patient has been tachycardic since admission. Heart rates have been in the 120s to 130s. He EKG done this afternoon, personally interpreted by me. Sinus tachycardia. No concerning signs of atrial fibrillation, heart block or junctional rhythm. Consideration for sepsis physiology in the setting of tachycardia and leukocytosis. She has no other signs of endorgan damage at this time. She may have a fever that is being masked by Tylenol, but unlikely. - Continue telemetry while in the ICU - As long as she is in sinus rhythm, no need to rate control - Manage pain and anxiety, added as needed Vistaril - Leukocytosis as below (6) Delirium: Impression: Unclear overall. Unclear baseline. Patient may just be eccentric. Patient is at times hallucinating. At times she is ruminative. Overall she shows difficulty with attention. It waxes and wanes most consistent with a delirium. Will make every effort to maintain normal sleep-wake cycle - Delirium precautions - Melatonin every 24 hours at 7 PM, takes 2 hours to be effective - Avoid labs and alarms overnight - As needed Zyprexa ODT if needed for safety (7) Leukocytosis: Impression: Patient initially presented with leukocytosis 20.6. Increased to 29.1 immediately postoperatively. Suspect this is mostly just a stress response from her profound dehydration on admission and her surgery. She has not exhibited other localizing signs of infection clearly. If she were to fever, I would preference evaluation and empiric treatment for urinary tract infection. - If she has a fever, would get chest x-ray, UA with culture, blood cultures - Otherwise trend CBC a.m. anticipated downtrending 10/04 - Continue to monitor off of antibiotics (8) Hypertension: Impression: Patient with a chronic history of hypertension. She has been hypertensive during this visit. She normally takes valsartan 240 mg/day. - Hold antihypertensives at this time - Will resume in the next 1 to 2 days I spent a total of 53 minutes in the care of this patient today. This time was spent reviewing labs, vital signs, imaging, interviewing and examining the patient, and discussing plan of care with them and their other care providers. Treating acute illness or injury that poses a threat to life. Reviewed data as above. Patient remains critically ill in the ICU with refeeding syndrome. Consulted with surgery as above. Independent interpretation of EKG as above. [id number]
[2025-10-03] MEDS: POTASSIUM PHOSPHATE 15 MMOL in SODIUM CHLORIDE 0.9% 250 ML IV ONE ×2 (07:39→17:21)
[2025-10-03] MEDS: ACETAMINOPHEN 325 MG TABLET PO SCH (07:46)
[2025-10-03 15:59] LABS: PHOSPHORUS 2.1 mg/dL (2.5-5.0)
--- NOTE | 2025-10-03 18:34 | ADVANCE CARE PLANNING NOTE ---
Advance Care Planning Planning Encounter Date: 10/03/25 Time: 13:05 Parties in Attendance: Patient, hospitalist Decisional Capacity of the Patient: She is at times delirious, but has capacity. She is aware of her delirium. Diagnosis for Encounter (1) Sigmoid volvulus: (2) Refeeding syndrome: (3) Hypokalemia: (4) Hypophosphatemia: (5) Tachyarrhythmia: (6) Delirium: (7) Leukocytosis: (8) Hypertension: Encounter Subjective/Patient's Story: Patient describes to me that she lives alone [place] on the [place]. She was not born here. Her and her moved here over a decade ago. Her unfortunately of metastatic melanoma during 2019. He during the . He at home with the patient. They were mostly alone at that time. They have no local family. She has a couple of friends [place]. Patient describes very frantically that she has been trying to get her affairs in order over the last several months. She has been working with a local fiduciary to plan for her estate. 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 She tells me she developed a keen interest in neurology as a young adult when her dad of glioblastoma. She talks of Christopher Villa. She does not have much by way of local family. She has some nieces and nephews. She tells me that her surrogate decision maker would be Luis Antonio Cardoza. Luis Antonio lives in [place]. She is worried about disrupting him during the holiday weekend. She only wants some contact in the event of emergencies. His phone number is [phone]. Objective/Medical Story: Patient is generally pretty healthy. She sees providers at [facility]. She is treated for hypertension. She has always had somewhat elevated cholesterol, but below the cutoff to treat. From her story, it sounds like she eventually aged into a bracket where her ASCVD risk score was high enough to start on treatment. She was started on atorvastatin 40 mg earlier this year. Otherwise she is on valsartan for blood pressure management and takes no other medications. She describes that she does not often get over to see her doctors when she is ill because they are all in the [facility]. She does not frequently get hospitalized. She is here with this hospitalization because she had a sigmoid volvulus that may be set in 2 weeks prior to her presentation. She tried to work through it, but was unsuccessful. She had debilitating abdominal pain that caused her to not be able to leave the house. She stayed at home for most of the 2 weeks she was ill. What finally prompted her to come to the hospital was that she ran out of food 3 days prior to coming to the hospital, and she was afraid she would if she stayed in her home. When asked why she did not come in earlier, she tells me "I just do not know". She is taken back on the first day of her hospitalization for emergent sigmoidectomy after aggressive electrolyte repletion in the ICU. Goals of Care: Patient is somewhat tangential in her thought process regarding this, but tells me that she has been thinking a lot about her end-of-life care as of late. She has been working on finalizing her will and her advance directives. She has been working with a fiduciary. Tells me "I have all the forms filled out. Everything is perfect now. I just need to sign everything." She ruminates on this somewhat and tells me that she knows there are specific scenarios that she has dictated in her well. She tells me she would not want to be on machines for a long time. Would not want artificial nutrition. I ask if she would want to be on dialysis. She says "I do not know but probably not." Then tells me it is all in the forms. She then summarizes by saying that she would not want any heroic measures. Her advanced directives apparently say that she would not want CPR if she were to . At the end of our conversation, I ask if she wishes to endorse that during this hospitalization. At that time, she very clearly says "I need to be full code during this hospitalization so that I can get home to sign my will". Plan: * Per patient, she has POA paperwork filled out but not signed at home * Per patient she has advanced directives filled out but not signed at home * Her wishes seem to be in line generally with DNR/selective treatments * She will be full code/full treatment during this hospitalization at her request * In the event of emergency, her relative Luis Antonio Cardoza can be reached at [phone] * Do not contact Luis Antonio Cardoza without permission from the patient otherwise Code Status: Attempt Resuscitation Time spent on advance care plannin
[2025-10-03] MEDS ORDERED: POTASSIUM PHOSPHATE 15 MMOL in SODIUM CHLORIDE 0.9% 250 ML IV SCH ×2 (19:00→21:30)
[2025-10-03] MEDS: NEUTRA-PHOS 250 MG TABLET PO SCH (19:52)
[2025-10-03] MEDS: MELATONIN 3 MG TABLET PO SCH (19:52)
[2025-10-03] MEDS: ACETAMINOPHEN 500 MG TABLET PO SCH (21:01)
[2025-10-04 04:29] LABS: HCT - HEMATOCRIT 34.4 % (37.0-47.0); HGB - HEMOGLOBIN 12.0 g/dL (12.0-16.0); MEAN PLATELET VOLUME 8.5 fL (7.9-10.8); NRBC ABSOLUTE COUNT (AUTO) 0.00 x10^3/uL; NUCLEATED RED BLOOD CELLS AUTO 0.0 /100WBC; PLT - PLATELET COUNT 286 10^3/uL (130-450); RED CELL DISTRIBUTION WIDTH 12.2 % (12.0-15.0)
[2025-10-04 04:33] LABS: VBG PH 7.465 (7.31-7.41)
[2025-10-04 04:46] LABS: BUN - BLOOD UREA NITROGEN 13.0 mg/dL (6-20); CARBON DIOXIDE - CO2 25.0 mmol/L (21-32); CREATININE 0.5 mg/dL (0.6-1.3); GFR - MDRD 119.0 (>89)
[2025-10-04] MEDS: MAGNESIUM SULFATE 2 GRAM 2 GM/50 ML BAG IV ONE (04:58)
[2025-10-04] MEDS: POTASSIUM CHLOR 20 MEQ/100 ML 20 MEQ/100 ML BAG IV SCH (05:06)
--- NOTE | 2025-10-04 07:42 | PROVIDER PROGRESS NOTE ---
Subjective Prog Note Date Prog Note Date: 10/04/25 Prog Note Time: 07:41 Subjective Subjective: No acute events overnight Still with multiple electrolyte derangements this morning. Potassium 2.7, and decreased oral overnight despite replacement with K-Phos. Getting KCl this morning. Phos 2.5. Magnesium 1.8. WBC downtrending to 19.3. ANC down from 26.5-15.8. Continue to monitor off of antibiotics. Yesenia slept well last night. She feels like the melatonin actually helped her. She feels like she is thinking more clearly today. She continues to be very anxious. Her tachycardia is persistent. Came down somewhat with treatment of pain this morning, but seems to be largely anxiety driven. No fevers or chills. She has some elizabeth-incisional pain, but rates it 5-7. Continues to have ample ostomy output. Ample urinary output. Current Medications Current Medications Current Medications: Current Medications Generic Name Dose Route Start Last Admin Trade Name Freq PRN Reason Stop Dose Admin Acetaminophen 1,000 mg 10/03/25 22:00 10/04/25 05:00 Acetaminophen 500 Mg Tablet PO 1,000 mg TID RADHA Administration Hydromorphone HCl 1 mg 10/02/25 23:59 10/03/25 11:17 Hydromorphone 0.5 Mg/0.5 Ml Syringe IVP 1 mg Q2H PRN Administration Severe Pain (Level 7-10) Hydroxyzine Pamoate 25 mg 10/03/25 17:46 Hydroxyzine Pamoate 25 Mg Capsule PO Q6H PRN Anxiety Lactated Ringer's 1,000 mls @ 100 mls/hr 10/02/25 16:00 10/04/25 02:16 Lr IV 150 mls/hr .Q10H RADHA Administration Acetaminophen 1,000 mg in 100 mls @ 400 mls/hr 10/03/25 19:21 Acetaminophen IV Q6HR PRN Moderate Pain (Level 4-6) Potassium Chloride 20 meq in 100 mls @ 100 mls/hr 10/04/25 05:00 10/04/25 06:59 Potassium Chloride IV 10/04/25 07:59 100 mls/hr Q1H RADHA Administration Protocol Magnesium Oxide 400 mg 10/04/25 09:00 Magnesium Oxide 400 Mg Tablet PO 10/04/25 09:01 BID RADHA Melatonin 3 mg 10/03/25 19:00 10/03/25 19:52 Melatonin 3 Mg Tablet PO 3 mg Q24H RADHA Administration Metoprolol Tartrate 5 mg 10/02/25 23:55 Metoprolol 5 Mg/5 Ml Vial IVP Q6H PRN Tachycardia Olanzapine 5 mg 10/03/25 17:46 Olanzapine Odt 5 Mg Tablet TL DAILY PRN Agitation Ondansetron HCl 4 mg 10/02/25 15:32 Ondansetron Odt 4 Mg Tablet TL Q6HR PRN Nausea / Vomiting Ondansetron HCl 4 mg 10/02/25 15:32 Ondansetron 4 Mg/2 Ml Vial IVP Q6HR PRN Nausea / Vomiting Oxycodone HCl 5 mg 10/02/25 15:32 Oxycodone 5 Mg Tablet PO Q4HR PRN Pain 5 to 7 Oxycodone HCl 10 mg 10/02/25 15:32 Oxycodone 5 Mg Tablet PO Q4HR PRN Pain 8 to 10 Sodium Chloride 10 ml 10/02/25 17:00 10/04/25 01:02 Sodium Chloride Flush 0.9% 10 Ml Syringe IVP 10 ml 0100,0900,1700 RADHA Administration Sodium Chloride 10 ml 10/02/25 15:32 Sodium Chloride Flush 0.9% 10 Ml Syringe IVP PRN PRN NEEDED PER PROVIDER ORDERS Sodium Phosphate 250 mg 10/03/25 20:00 10/03/25 19:52 Neutra-Phos 250 Mg Tablet PO 10/04/25 17:01 250 mg TIDWM RADHA Administration Objective Vital Signs/Intake & Output Reviewed Vital Signs: Yes Vital Signs: Vital Signs x48h Temp Pulse Resp BP Pulse Ox 10/04/25 07:00 37.1 C 117 H 16 128/69 97 10/04/25 06:00 37.1 C 108 H 15 109/60 97 10/04/25 05:00 37.2 C 110 H 22 137/76 H 96 10/04/25 04:00 37.3 C 110 H 17 128/63 95 10/04/25 03:00 37.1 C 107 H 16 118/59 L 97 10/04/25 02:00 37.0 C 109 H 17 111/62 95 10/04/25 01:00 36.9 C 98 17 116/57 L 95 10/04/25 00:00 36.9 C 102 H 15 119/60 95 Intake & Output: Intake & Output 10/01/25 10/02/25 10/03/25 10/04/25 23:59 23:59 23:59 23:59 Intake Total 6139 / 6139 6052 / 6052 1213 / 1213 Output Total 1480 / 1480 4756 / 4756 967 / 967 Balance 4659 / 4659 1296 / 1296 246 / 246 Weight (kg) 60 kg 62 kg 62.5 kg Objective Comments/Other: GEN: No acute distress, seated in chair HEENT: NC/AT, normal appearance of external ears and nose. Hearing baseline. Cardiac: Tachycardic and regular. No murmurs appreciated. Pulm: Lungs CTA bilaterally, no cough, no wheezes. Normal effort on room air Abdomen: Improvement in distention, mild distention still present. Soft, nontender. Ostomy in place in left lower quadrant. JACQUE drain midline coming out with serosanguineous drainage. Dressing CDI. Abdomen bowel tones present. Extremities: Moves all 4 extremities equally. Normal tone. Neuro: Face symmetric, CN II through XII intact grossly. No focal neurologic deficit. No tremor or tongue fasciculations. Psych: Mood elated. Reactive affect. Mood lability. Good fund of knowledge. Lab Results 10/04/25 04:17 10/04/25 13:13 Other Labs: Lab Results x24hrs 10/04/25 10/03/25 Range/Units 04:17 15:35 WBC 19.3 H (4.8-10.8) x10^3/uL RBC 3.84 L (4.20-5.40) 10^6/uL Hgb 12.0 (12.0-16.0) g/dL Hct 34.4 L (37.0-47.0) % MCV 89.6 (81.0-99.0) fL MCH 31.3 H (27.0-31.0) pg MCHC 34.9 (32.0-36.0) g/dL RDW 12.2 (12.0-15.0) % Plt Count 286 (130-450) 10^3/uL MPV 8.5 (7.9-10.8) fL Neut # (Auto) 15.8 H (1.5-6.6) 10^3/uL Lymph # (Auto) 1.8 (1.5-3.5) 10^3/uL [place] # (Auto) 1.5 H (0.0-1.0) 10^3/uL Eos # (Auto) 0.0 (0.0-0.7) 10^3/uL Baso # (Auto) 0.0 (0.0-0.1) 10^3/uL Absolute Nucleated RBC 0.00 x10^3/uL Nucleated RBC % 0.0 /100WBC VBG pH 7.465 H (7.31-7.41) Ionized Calcium 1.21 (1.09-1.30) mmol/L Sodium 136 (135-145) mmol/L Potassium 2.7 L 3.1 L (3.5-4.5) mmol/L Chloride 105 (101-111) mmol/L Carbon Dioxide 25 (21-32) mmol/L Anion Gap 6.0 (6-13) BUN 13 (6-20) mg/dL Creatinine 0.5 L (0.6-1.3) mg/dL Estimated GFR (MDRD) 119 (>89) Glucose 99 (74-104) mg/dL Calcium 8.0 L (8.5-10.3) mg/dL Phosphorus 2.5 2.1 L (2.5-5.0) mg/dL Magnesium 1.8 2.2 (1.7-2.3) mg/dL Assessment/Plan Problem List (1) Sigmoid volvulus: Impression: Pain reasonably well-managed. Patient continues to endorse moderate pain that is treatable with Tylenol. Has been avoiding opiates intentionally. Tolerating clear liquid diet Recall the patient presented with nearly 2 weeks of constipation. She had progressive abdominal distention and pain associated. She was found on imaging to have sigmoid volvulus with distal transition point on CT. Taken to surgery on 10/02 with successful repair. Colostomy in place left lower abdomen. Having normal stool output. - General Surgery following,Discussed with them on 10/04. She is healing well. Her tachycardia is likely pain versus anxiety driven. - Diet managed by general surgery. - Continue maintenance fluids at 100 mL/h, LR - Ample urine output, Chery removed today. - Scheduled Tylenol for pain, 1000 mg 3 times daily - As needed oxycodone available for pain - PT will work with patient once patient's heart rate is less than 130 - Replenish electrolytes as below, K>4, Mg>2, Phos>3 (2) Refeeding syndrome: (3) Hypokalemia: (4) Hypophosphatemia: Impression: Continues with multiple electrolyte abnormalities. They are improving with repletion. She still has tachycardia as below. She was notably quite dehydrated on arrival. Her fluid balance for today is only +2 L. Fluid balance over the course of her hospitalization is +7 L. Patient was not eating for several days prior to arrival. She ran out of food at her home and was unable to get out of her house because she was so unwell. She had critically low potassium on arrival. She has a central line placed and has been removed seeping potassium and phosphate replacement. Vitamin B12 levels were checked at the patient's request, and are replete (2817 pg/mL) - Will give 1 L fluid bolus and monitor heart rate for improvement, 500mL given earlier. - Replacing with IV K-Phos this afternoon - Recheck Phos, mag, potassium in the morning - Continue aggressive repletion (5) Tachyarrhythmia: Impression: Still tachycardic. Unable to work with PT because of her tachycardia. Discussed with the patient 10/04. She says her heart rates always been fast around 100-110. Other providers have noted this. She feels like 130 is faster than it typically is. She endorses that she is an anxious person. She endorses quite a bit of anxiety right now. Discussed trying something for anxiety, she is very reticent. Discussed Vistaril, she says she cannot take Benadryl because it causes psychosis. She says she cannot take propranolol because it causes a profound depression. Patient has been tachycardic since admission. Heart rates have been in the 120s to 130s. He EKG shows Sinus tachycardia. No concerning signs of atrial fibrillation, heart block or junctional rhythm. Consideration for sepsis physiology in the setting of tachycardia and leukocytosis. She has no other signs of end organ damage at this time. She may have a fever that is being masked by Tylenol, but unlikely. - Gave 25 mg oral metoprolol earlier today, well-tolerated but ineffective. - Will start metoprolol tartrate 25 mg p.o. every 6 hours at 1800 with holding parameters - There is not a strict medical need to rate control her, but it is disrupting her care. Hopefully she can work with PT. - Nursing is continuing to encourage her to treat her pain and anxiety. - Leukocytosis as below (6) Delirium: Impression: Improved with sleep. More supportive of hospital induced delirium as of initially suspected. Patient is at times hallucinating. At times she is ruminative. Overall she shows difficulty with attention. It waxes and wanes most consistent with a delirium. Will make every effort to maintain normal sleep-wake cycle - Delirium precautions - Continue Melatonin every 24 hours at 7 PM, takes 2 hours to be effective - Avoid labs and alarms overnight - As needed Zyprexa ODT if needed for safety (7) Leukocytosis: Impression: Patient initially presented with leukocytosis 20.6. Increased to 29.1 immediately postoperatively. Is now downtrending off of antibiotics Suspect this is mostly just a stress response from her profound dehydration on admission and her surgery. She has not exhibited other localizing signs of infection clearly. If she were to fever, I would preference evaluation and empiric treatment for urinary tract infection. - If she has a fever, would get chest x-ray, UA with culture, blood cultures - Otherwise trend CBC a.m. anticipated downtrending 10/04 - Continue to monitor off of antibiotics - Chery removed as above (8) Hypertension: Impression: Patient with a chronic history of hypertension. She has been hypertensive during this visit. She normally takes valsartan 240 mg/day. - Hold antihypertensives at this time - Will resume in the next 1 to 2 days When she is more hemodynamically stable. I spent a total of 53 minutes in the care of this patient today. This time was spent reviewing labs, vital signs, imaging, interviewing and examining the patient, and discussing plan of care with them and their other care providers. Treating acute illness or injury that poses a threat to life. Reviewed data as above. Discussed her case with general surgery, they are managing her diet, we collectively decided to keep her in the ICU tonight. Remove her Chery. Trying to get her heart rate down. She remains critically ill in the ICU with refeeding syndrome. [id number]
--- NOTE | 2025-10-04 08:12 | PROVIDER PROGRESS NOTE ---
Subjective General Admit Date: 10/02/25 Procedure Date: 10/02/25 Post Op Days: 2 Procedure Performed: Ex-lap, sigmoidectomy w/ end colostomy Other Other Information/Narrative: Pain controlled though she has been hesitant to take PO narcotics. Patient anxious about contacting company that holds her DPOA. Patient has questions regarding f/u plan for further surgery. Wound Assessment Wound/Incisions: positive Dressing dry and intact Drain Type: 19 Round JACQUE Drain Output Description: Serosanguineous Approximate mls Output: 990 Exam Exam Vital Signs: Vital Signs x48h Temp Pulse Resp BP Pulse Ox 10/04/25 11:00 99.7 F 128 H 20 112/55 L 96 10/04/25 10:00 99.5 F 118 H 17 114/64 96 10/04/25 09:00 99.1 F 130 H 14 103/62 97 10/04/25 08:00 98.8 F 137 H 14 134/88 H 98 10/04/25 07:00 98.8 F 117 H 16 128/69 97 10/04/25 06:00 98.8 F 108 H 15 109/60 97 10/04/25 05:00 99.0 F 110 H 22 137/76 H 96 10/04/25 04:00 99.1 F 110 H 17 128/63 95 GEN: No acute distress, alert and oriented CV: tachycardia PULM: non labored, on RA ABD: soft, appropriate incisional ttp, no rebound or guarding. Ostomy pink and edematous (improving) with excellent continued output over the last [address] Incision c/d/i with dressing in place EXT: no clubbing, cyanosis, or edema Image Laboratory Last Values WBC 19.3 x10^3/uL (4.8-10.8) H 10/04/25 04:17 RBC 3.84 10^6/uL (4.20-5.40) L 10/04/25 04:17 Hgb 12.0 g/dL (12.0-16.0) 10/04/25 04:17 Hct 34.4 % (37.0-47.0) L 10/04/25 04:17 MCV 89.6 fL (81.0-99.0) 10/04/25 04:17 MCH 31.3 pg (27.0-31.0) H 10/04/25 04:17 MCHC 34.9 g/dL (32.0-36.0) 10/04/25 04:17 RDW 12.2 % (12.0-15.0) 10/04/25 04:17 Plt Count 286 10^3/uL (130-450) 10/04/25 04:17 MPV 8.5 fL (7.9-10.8) 10/04/25 04:17 Neut # (Auto) 15.8 10^3/uL (1.5-6.6) H 10/04/25 04:17 Lymph # (Auto) 1.8 10^3/uL (1.5-3.5) 10/04/25 04:17 [place] # (Auto) 1.5 10^3/uL (0.0-1.0) H 10/04/25 04:17 Eos # (Auto) 0.0 10^3/uL (0.0-0.7) 10/04/25 04:17 Baso # (Auto) 0.0 10^3/uL (0.0-0.1) 10/04/25 04:17 Absolute Nucleated RBC 0.00 x10^3/uL 10/04/25 04:17 Total Counted 100 10/03/25 04:30 Band Neuts % (Manual) 0 % (0-10) 10/03/25 04:30 Abnorm Lymph % (Manual) 0 % 10/03/25 04:30 Metamyelocytes % 1 % (-0) H 10/02/25 10:26 Nucleated RBC % 0.0 /100WBC 10/04/25 04:17 Neutrophils # (Manual) 26.5 10^3/uL (1.5-6.6) H 10/03/25 04:30 Lymphocytes # (Manual) 1.5 10^3/uL (1.5-3.5) 10/03/25 04:30 Monocytes # (Manual) 1.2 10^3/uL (0.0-1.0) H 10/03/25 04:30 Eosinophils # (Manual) 0.0 10^3/uL (0-0.7) 10/03/25 04:30 Basophils # (Manual) 0.0 10^3/uL (0-0.1) 10/03/25 04:30 Differential Comment MANUAL DIFFERENTIAL 10/03/25 04:30 WBC Morphology NORMAL APPEARANCE (NORMAL) 10/03/25 04:30 Platelet Estimate NORMAL (130-450,000) (NORMAL) 10/03/25 04:30 Platelet Morphology NORMAL APPEARANCE (NORMAL) 10/03/25 04:30 RBC Morph Micro Appear NORMAL APPEARANCE (NORMAL) 10/03/25 04:30 VBG pH 7.465 (7.31-7.41) H 10/04/25 04:17 Ionized Calcium 1.21 mmol/L (1.09-1.30) 10/04/25 04:17 Sodium 136 mmol/L (135-145) 10/04/25 04:17 Potassium 2.7 mmol/L (3.5-4.5) L 10/04/25 04:17 Chloride 105 mmol/L (101-111) 10/04/25 04:17 Carbon Dioxide 25 mmol/L (21-32) 10/04/25 04:17 Anion Gap 6.0 (6-13) 10/04/25 04:17 BUN 13 mg/dL (6-20) 10/04/25 04:17 Creatinine 0.5 mg/dL (0.6-1.3) L 10/04/25 04:17 Estimated GFR (MDRD) 119 (>89) 10/04/25 04:17 Glucose 99 mg/dL (74-104) 10/04/25 04:17 Lactic Acid 0.9 mmol/L (0.5-2.2) 10/02/25 10:44 Calcium 8.0 mg/dL (8.5-10.3) L 10/04/25 04:17 Phosphorus 2.5 mg/dL (2.5-5.0) 10/04/25 04:17 Magnesium 1.8 mg/dL (1.7-2.3) 10/04/25 04:17 Total Bilirubin 1.1 mg/dL (0.2-1.0) H 10/02/25 10:44 AST 27 IU/L (10-42) 10/02/25 10:44 ALT 35 IU/L (10-60) 10/02/25 10:44 Alkaline Phosphatase 83 IU/L (42-121) 10/02/25 10:44 Total Protein 6.2 g/dL (6.4-8.9) L 10/02/25 10:44 Albumin 3.9 g/dL (3.2-5.5) 10/02/25 16:21 Globulin 2.1 g/dL (2.1-4.2) 10/02/25 10:44 Albumin/Globulin Ratio 2.0 (1.0-2.2) 10/02/25 10:44 Lipase 21 U/L (11-82) 10/02/25 10:44 Nasal Screen MRSA (PCR) NEGATIVE (NEGATIVE) 10/02/25 15:30 Impression/Plan Problem List (1) Sigmoid volvulus: (2) Refeeding syndrome: (3) Hypokalemia: (4) Hypophosphatemia: (5) Tachyarrhythmia: (6) Delirium: (7) Leukocytosis: (8) Hypertension: Plan 72 yo F who presented on 10/02 with multiple days of abdominal distension and pain, 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 Unable to reduce with proctostomy, so patient underwent Ex-lap, sigmoidectomy and end colostomy on 10/02 which she tolerated well. Continues to have good ostomy output. POD#2 Neuro - multimodal pain control with scheduled tylenol, prn oxycodone and prn IV Dilaudid for break though pain - Altered after surgery, but oriented this AM - quite anxious this AM - restraints removed CVS - HR 110s- 130s this AM, higher with stimulation - BP stable - Metoprolol ordered for sustained tachy >130. Could consider propanolol which would treat tachycardia and anxiety - Continue to monitor Resp - Saturating well on RA - Encouraging IS, continue to monitor GI/FEN - Patient continues to have excellent ostomy output, tolerating clears - I discussed the plan for the patient to have the ostomy for at least 3-6 months to allow for internal healing prior to consideration for ostomy takedown. Patient had understood she may need another surgery during this hospital stay. The initial plan was for reduction of the volvulus with delayed sigmoidectomy and primary anastomosis, but she required emergent sigmoidectomy with ostomy after her volvulus could not be reduced. There are no plans for additional surgery during this hospital stay at this time. I explained this to the patient. She is disheartened to need the ostomy for so long but voices understanding. - Will adat tomorrow if doing well (surgery managing diet) - Maintain K>4, P>3 and Mg>2 (medicine team replacing) - UOP adequate - Significantly dehydrated on arrival - will discuss removal of driver today with medicine team. Continue strict I/Os. Heme - Hgb stable for last 24 hours - Lovenox for DVT ppx ID - WBC elevated, but decreasing - No spillage in the OR, continue to monitor off abx Endo - BG's normal on labs, no h/o DM - Continue to monitor MSK - PT ordered - encourage activity Lines/Drains - Maintain PIV access and TLC until recovered Patient inpatient in ICU, consider transfer to floor when HR improved. Appreciate medicine team recommendations. I discussed the plan of care as above the patient and the medicine team today.
[2025-10-04] MEDS: oxyCODONE 5 MG TABLET PO PRN (08:36)
[2025-10-04] MEDS: MAGNESIUM OXIDE 400 MG TABLET PO SCH (08:36)
[2025-10-04] MEDS: POTASSIUM CHLOR 20 MEQ/100 ML 20 MEQ/100 ML BAG IV ONE (08:49)
[2025-10-04] MEDS ORDERED: HYDROmorphone 1 MG/ML CARPUJECT IVP PRN (11:02)
[2025-10-04] MEDS: METOPROLOL TARTRATE 25 MG TABLET PO ONE (12:42)
[2025-10-04] MEDS: THIAMINE INJ 100 MG, FOLIC ACID INJ 1 MG in SODIUM CHLORIDE 0.9% 100ML 100 ML IV ONE (12:42)
[2025-10-04 13:41] LABS: ALT ALANINE AMINOTRANSFERASE 22.0 IU/L (10-60); AST ASPARTATE AMINOTRANSFERASE 20.0 IU/L (10-42); BUN - BLOOD UREA NITROGEN 14.0 mg/dL (6-20); CARBON DIOXIDE - CO2 24.0 mmol/L (21-32); CREATININE 0.6 mg/dL (0.6-1.3); GFR - MDRD 97.0 (>89)
[2025-10-04] MEDS: LACTATED RINGERS 1,000 ML IV SCH (14:15)
[2025-10-04] MEDS: LACTATED RINGERS 500 ML IV ONE (14:31)
[2025-10-04] MEDS: LACTATED RINGERS 1,000 ML IV ONE (16:07)
[2025-10-04] MEDS: POTASSIUM PHOSPHATE 15 MMOL in SODIUM CHLORIDE 0.9% 250 ML IV SCH (16:07)
[2025-10-05] MEDS: ACETAMINOPHEN 1,000 MG/100 ML 1,000 MG/100 ML BAG IV PRN (04:47)
[2025-10-05 05:13] LABS: HCT - HEMATOCRIT 35.9 % (37.0-47.0); HGB - HEMOGLOBIN 12.3 g/dL (12.0-16.0); MEAN PLATELET VOLUME 9.0 fL (7.9-10.8); NRBC ABSOLUTE COUNT (AUTO) 0.00 x10^3/uL; NUCLEATED RED BLOOD CELLS AUTO 0.0 /100WBC; PLT - PLATELET COUNT 322 10^3/uL (130-450); RED CELL DISTRIBUTION WIDTH 12.0 % (12.0-15.0)
[2025-10-05 05:27] LABS: BUN - BLOOD UREA NITROGEN 11.0 mg/dL (6-20); CARBON DIOXIDE - CO2 27.0 mmol/L (21-32); CREATININE 0.4 mg/dL (0.6-1.3); GFR - MDRD 154.0 (>89)
[2025-10-05 05:53] LABS: SLIDE REVIEW? Indicated
[2025-10-05 05:54] LABS: PLATELET ESTIMATE, MANUAL NORMAL (130-450,000) (NORMAL); PLATELET MORPHOLOGY NORMAL APPEARANCE (NORMAL); RBC MORPHOLOGY (MULTIPLE) 2+ BURR CELLS (NORMAL); WBC MORPHOLOGY (MULTIPLE) 1+ TOXIC GRANULATION (NORMAL)
[2025-10-05] MEDS: MAGNESIUM SULFATE 2 GRAM 2 GM/50 ML BAG IV ONE (07:02)
[2025-10-05] MEDS: POTASSIUM CHLOR 20 MEQ/100 ML 20 MEQ/100 ML BAG IV SCH ×3 (07:02→21:28)
--- NOTE | 2025-10-05 09:22 | XRAY Report ---
PROCEDURE: XR Chest 1V INDICATIONS: Leukocytosis, ?sepsis TECHNIQUE: One view of the chest was acquired. COMPARISON: 10/02/2025 FINDINGS: Surgical changes and devices: The tip of the right-sided central line has been withdrawn slightly, now seen overlying the inferior aspect of the superior vena cava, 1 cm above the cavoatrial junction. Lungs and pleura: An incomplete inspiratory result is noted, with low lung volumes and crowding of the vascular markings. No focal infiltrates are seen. No large pneumothorax is seen. There is mild blunting of the right costophrenic angle. Mediastinum: The aorta is prominent and tortuous. The cardiac contours are within normal limits. Age-appropriate degenerative changes are seen. Bones and chest wall: No suspicious bony lesions. Age-appropriate degenerative changes are seen. Mild dextroconvex scoliotic curvature is seen. Overlying soft tissues appear unremarkable. IMPRESSION: No focal infiltrates are seen. The tip of the right-sided central line has been withdrawn slightly, now seen overlying the inferior aspect of the superior vena cava. There is a likely small right-sided pleural effusion. Postoperative and degenerative changes are seen. Reviewed by: Stu Wilkinson MD on 10/05/2025 8:19 AM [facility] Approved by: Stu Wilkinson MD on 10/05/2025 8:19 AM [facility] Station ID: [id number]
--- NOTE | 2025-10-05 10:07 | PROVIDER PROGRESS NOTE ---
Subjective General Admit Date: 10/02/25 Procedure Date: 10/02/25 Post Op Days: 3 Procedure Performed: Ex-lap, sigmoidectomy w/ end colostomy Other Other Information/Narrative: Pain controlled. Tolerating clears. No n/v. No f/c. She has not been able to void since her driver was removed. Wound Assessment Wound/Incisions: positive Dressing dry and intact Drain Type: 19 Round JACQUE Drain Output Description: Serous Approximate mls Output: 1290 Exam Exam Vital Signs: Vital Signs x48h Temp Pulse Resp BP Pulse Ox 10/05/25 09:00 128 H 20 114/80 98 10/05/25 08:00 98.1 F 115 H 18 126/75 99 10/05/25 07:00 107 H 22 121/77 99 10/05/25 06:00 97.8 F 98 20 127/65 99 10/05/25 05:00 105 H 22 129/79 99 10/05/25 04:00 99 16 126/73 98 10/05/25 03:00 99 18 134/73 H 96 10/05/25 02:00 98.4 F 103 H 19 134/80 H 98 GEN: No acute distress, alert and oriented CV: tachycardia PULM: non labored, on RA ABD: soft, appropriate incisional ttp, no rebound or guarding. Ostomy pink and edematous (improving) with excellent continued output over the last 24 hours. Incision c/d/i with dressing in place. JACQUE output serous, high output. EXT: no clubbing, cyanosis, or edema Image Laboratory Last Values WBC 19.3 x10^3/uL (4.8-10.8) H 10/04/25 04:17 RBC 3.84 10^6/uL (4.20-5.40) L 10/04/25 04:17 Hgb 12.0 g/dL (12.0-16.0) 10/04/25 04:17 Hct 34.4 % (37.0-47.0) L 10/04/25 04:17 MCV 89.6 fL (81.0-99.0) 10/04/25 04:17 MCH 31.3 pg (27.0-31.0) H 10/04/25 04:17 MCHC 34.9 g/dL (32.0-36.0) 10/04/25 04:17 RDW 12.2 % (12.0-15.0) 10/04/25 04:17 Plt Count 286 10^3/uL (130-450) 10/04/25 04:17 MPV 8.5 fL (7.9-10.8) 10/04/25 04:17 Neut # (Auto) 15.8 10^3/uL (1.5-6.6) H 10/04/25 04:17 Lymph # (Auto) 1.8 10^3/uL (1.5-3.5) 10/04/25 04:17 [place] # (Auto) 1.5 10^3/uL (0.0-1.0) H 10/04/25 04:17 Eos # (Auto) 0.0 10^3/uL (0.0-0.7) 10/04/25 04:17 Baso # (Auto) 0.0 10^3/uL (0.0-0.1) 10/04/25 04:17 Absolute Nucleated RBC 0.00 x10^3/uL 10/04/25 04:17 Total Counted 100 10/03/25 04:30 Band Neuts % (Manual) 0 % (0-10) 10/03/25 04:30 Abnorm Lymph % (Manual) 0 % 10/03/25 04:30 Metamyelocytes % 1 % (-0) H 10/02/25 10:26 Nucleated RBC % 0.0 /100WBC 10/04/25 04:17 Neutrophils # (Manual) 26.5 10^3/uL (1.5-6.6) H 10/03/25 04:30 Lymphocytes # (Manual) 1.5 10^3/uL (1.5-3.5) 10/03/25 04:30 Monocytes # (Manual) 1.2 10^3/uL (0.0-1.0) H 10/03/25 04:30 Eosinophils # (Manual) 0.0 10^3/uL (0-0.7) 10/03/25 04:30 Basophils # (Manual) 0.0 10^3/uL (0-0.1) 10/03/25 04:30 Differential Comment MANUAL DIFFERENTIAL 10/03/25 04:30 WBC Morphology NORMAL APPEARANCE (NORMAL) 10/03/25 04:30 Platelet Estimate NORMAL (130-450,000) (NORMAL) 10/03/25 04:30 Platelet Morphology NORMAL APPEARANCE (NORMAL) 10/03/25 04:30 RBC Morph Micro Appear NORMAL APPEARANCE (NORMAL) 10/03/25 04:30 VBG pH 7.465 (7.31-7.41) H 10/04/25 04:17 Ionized Calcium 1.21 mmol/L (1.09-1.30) 10/04/25 04:17 Sodium 136 mmol/L (135-145) 10/04/25 04:17 Potassium 2.7 mmol/L (3.5-4.5) L 10/04/25 04:17 Chloride 105 mmol/L (101-111) 10/04/25 04:17 Carbon Dioxide 25 mmol/L (21-32) 10/04/25 04:17 Anion Gap 6.0 (6-13) 10/04/25 04:17 BUN 13 mg/dL (6-20) 10/04/25 04:17 Creatinine 0.5 mg/dL (0.6-1.3) L 10/04/25 04:17 Estimated GFR (MDRD) 119 (>89) 10/04/25 04:17 Glucose 99 mg/dL (74-104) 10/04/25 04:17 Lactic Acid 0.9 mmol/L (0.5-2.2) 10/02/25 10:44 Calcium 8.0 mg/dL (8.5-10.3) L 10/04/25 04:17 Phosphorus 2.5 mg/dL (2.5-5.0) 10/04/25 04:17 Magnesium 1.8 mg/dL (1.7-2.3) 10/04/25 04:17 Total Bilirubin 1.1 mg/dL (0.2-1.0) H 10/02/25 10:44 AST 27 IU/L (10-42) 10/02/25 10:44 ALT 35 IU/L (10-60) 10/02/25 10:44 Alkaline Phosphatase 83 IU/L (42-121) 10/02/25 10:44 Total Protein 6.2 g/dL (6.4-8.9) L 10/02/25 10:44 Albumin 3.9 g/dL (3.2-5.5) 10/02/25 16:21 Globulin 2.1 g/dL (2.1-4.2) 10/02/25 10:44 Albumin/Globulin Ratio 2.0 (1.0-2.2) 10/02/25 10:44 Lipase 21 U/L (11-82) 10/02/25 10:44 Nasal Screen MRSA (PCR) NEGATIVE (NEGATIVE) 10/02/25 15:30 Impression/Plan Problem List (1) Sigmoid volvulus: (2) Refeeding syndrome: (3) Hypokalemia: (4) Hypophosphatemia: (5) Tachyarrhythmia: (6) Delirium: (7) Leukocytosis: (8) Hypertension: Plan 72 yo F who presented on 10/02 with multiple days of abdominal distension and pain, 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 Unable to reduce with proctostomy, so patient underwent Ex-lap, sigmoidectomy and end colostomy on 10/02 which she tolerated well. Continues to have good ostomy output. POD#2 Neuro - multimodal pain control with scheduled tylenol, prn oxycodone and prn IV Dilaudid for break though pain - Altered after surgery, but oriented this AM - anxiety somewhat improve this AM CVS - HR 110s- 120s this AM, improving - BP stable - Metoprolol ordered for sustained tachy >130. Medicine team working with patient to treat this. She has tried many medications in the past for chronic tachycardia. - Continue to monitor Resp - Saturating well on RA - Encouraging IS, continue to monitor GI/FEN - Patient continues to have excellent ostomy output, tolerating clears. Will adat to soft diet today (surgery managing diet). - I discussed the plan for the patient to have the ostomy for at least 3-6 months to allow for internal healing prior to consideration for ostomy takedown. Patient had understood she may need another surgery during this hospital stay. The initial plan was for reduction of the volvulus with delayed sigmoidectomy and primary anastomosis, but she required emergent sigmoidectomy with ostomy after her volvulus could not be reduced. There are no plans for additional surgery during this hospital stay at this time. I explained this to the patient. She is disheartened to need the ostomy for so long but voices understanding. - Maintain K>4, P>3 and Mg>2 (medicine team replacing). Electrolyte abnormalities indicate refeeding syndrome. - UOP adequate prior to driver removal. Concern for possible ureteral injury given h/o surgery, high JACQUE output, decreased urine output. Checking urine and JACQUE creatinine this AM, to rule out injury. - Significantly dehydrated on arrival - Continue strict I/Os. Heme - Hgb stable for last 48 hours - Lovenox for DVT ppx ID - WBC continues to be elevated. Infectious workup per medicine team including UA, B Cx, d diff. - No spillage in the OR, agree with only starting abx if source identified as patient is asymptomatic aside from chronic tachycardia (which is improving) Endo - BG's normal on labs, no h/o DM - Continue to monitor MSK - PT ordered, hasn't worked with patient yet due to tachycardia - encourage activity Lines/Drains - Maintain PIV access and TLC until recovered Patient inpatient in ICU, consider transfer to floor when HR improved. Appreciate medicine team recommendations. I discussed the plan of care as above the patient and the medicine team today.
--- NOTE | 2025-10-05 11:13 | PROVIDER PROGRESS NOTE ---
Subjective Prog Note Date Prog Note Date: 10/05/25 Prog Note Time: 11:11 Subjective Subjective: No acute events overnight. Has had total output of 3 L. Balance still +3.2 L. She has had quite a bit of output from her drain, 1200 mL overnight. Stool output of the liter. Urine output less than 1 L. She needed a straight cath last night. Continues to need aggressive repletion of electrolytes. Predominantly potassium is low at 2.9. Likely in the setting of her high stool output. Her heart rate has come down somewhat with the extra fluids. She is hovering around the 110s. Remains afebrile. Normal saturations on room air. Normal respiratory rate. Blood pressure is soft especially considering holding her home antihypertensives. With all of that, we are starting an infectious workup this morning with her persistent leukocytosis, tachycardia. Chest x-ray looks okay so far. Awaiting urine sample as well as stool sample. Patient continues to feel well. Tolerating Soft mechanical diet. She continues to be quite ruminative and perseverant about her care. Very verbose. Denies any focal pains. Abdomen is relatively nontender. Current Medications Current Medications Current Medications: Current Medications Generic Name Dose Route Start Last Admin Trade Name Freq PRN Reason Stop Dose Admin Acetaminophen 1,000 mg 10/03/25 22:00 10/05/25 04:47 Acetaminophen 500 Mg Tablet PO Not Given TID RADHA Hydromorphone HCl 1 mg 10/04/25 11:02 Hydromorphone 1 Mg/Ml Carpuject IVP Q2H PRN Severe Pain (Level 7-10) Hydroxyzine Pamoate 25 mg 10/03/25 17:46 Hydroxyzine Pamoate 25 Mg Capsule PO Q6H PRN Anxiety Lactated Ringer's 1,000 mls @ 100 mls/hr 10/02/25 16:00 10/05/25 02:33 Lr IV 100 mls/hr .Q10H RADHA Administration Acetaminophen 1,000 mg in 100 mls @ 400 mls/hr 10/03/25 19:21 10/05/25 05:12 Acetaminophen IV Infused Q6HR PRN Infusion Moderate Pain (Level 4-6) Melatonin 3 mg 10/03/25 19:00 10/04/25 21:22 Melatonin 3 Mg Tablet PO Not Given Q24H RADHA Olanzapine 5 mg 10/03/25 17:46 Olanzapine Odt 5 Mg Tablet TL DAILY PRN Agitation Ondansetron HCl 4 mg 10/02/25 15:32 Ondansetron Odt 4 Mg Tablet TL Q6HR PRN Nausea / Vomiting Ondansetron HCl 4 mg 10/02/25 15:32 Ondansetron 4 Mg/2 Ml Vial IVP Q6HR PRN Nausea / Vomiting Oxycodone HCl 5 mg 10/02/25 15:32 10/05/25 04:40 Oxycodone 5 Mg Tablet PO 5 mg Q4HR PRN Administration Pain 5 to 7 Oxycodone HCl 10 mg 10/02/25 15:32 Oxycodone 5 Mg Tablet PO Q4HR PRN Pain 8 to 10 Sodium Chloride 10 ml 10/02/25 17:00 10/05/25 09:32 Sodium Chloride Flush 0.9% 10 Ml Syringe IVP 10 ml 0100,0900,1700 RADHA Administration Sodium Chloride 10 ml 10/02/25 15:32 Sodium Chloride Flush 0.9% 10 Ml Syringe IVP PRN PRN NEEDED PER PROVIDER ORDERS Objective Vital Signs/Intake & Output Reviewed Vital Signs: Yes Vital Signs: Vital Signs x48h Temp Pulse Resp BP Pulse Ox 10/05/25 11:00 114 H 17 108/67 97 10/05/25 10:00 113 H 20 123/71 98 10/05/25 09:00 128 H 20 114/80 98 10/05/25 08:00 36.7 C 115 H 18 126/75 99 10/05/25 07:00 107 H 22 121/77 99 10/05/25 06:00 36.6 C 98 20 127/65 99 10/05/25 05:00 105 H 22 129/79 99 10/05/25 04:00 99 16 126/73 98 Intake & Output: Intake & Output 10/02/25 10/03/25 10/04/25 10/05/25 23:59 23:59 23:59 23:59 Intake Total 6139 / 6139 6052 / 6052 6338 / 6338 2903.2 / 2903.2 Output Total 1480 / 1480 4756 / 4756 2862 / 2862 1800 / 1800 Balance 4659 / 4659 1296 / 1296 3476 / 3476 1103.2 / 1103.2 Weight (kg) 60 kg 62 kg 62.5 kg 66 kg Objective Comments/Other: GEN: No acute distress, Lying in bed HEENT: NC/AT, normal appearance of external ears and nose. Hearing baseline. Cardiac: Tachycardic and regular. No murmurs appreciated. Pulm: Lungs CTA bilaterally, no cough, no wheezes. Normal effort on room air Abdomen: Improvement in distention, mild distention still present. Soft, nontender. Ostomy in place in left lower quadrant, Soft stool output.. JACQUE drain midline coming out with copious serous drainage. Dressing CDI. Extremities: Moves all 4 extremities equally. Normal tone. Neuro: Face symmetric, CN II through XII intact grossly. No focal neurologic deficit. No tremor or tongue fasciculations. Psych: Mood elated. Reactive affect. Mood lability. Good fund of knowledge. Lab Results 10/05/25 05:00 10/05/25 05:00 Other Labs: Lab Results x24hrs 10/05/25 10/04/25 Range/Units 05:00 13:13 WBC 19.0 H (4.8-10.8) x10^3/uL RBC 3.99 L (4.20-5.40) 10^6/uL Hgb 12.3 (12.0-16.0) g/dL Hct 35.9 L (37.0-47.0) % MCV 90.0 (81.0-99.0) fL MCH 30.8 (27.0-31.0) pg MCHC 34.3 (32.0-36.0) g/dL RDW 12.0 (12.0-15.0) % Plt Count 322 (130-450) 10^3/uL MPV 9.0 (7.9-10.8) fL Neut # (Auto) 14.9 H (1.5-6.6) 10^3/uL Lymph # (Auto) 2.2 (1.5-3.5) 10^3/uL [place]land # (Auto) 1.5 H (0.0-1.0) 10^3/uL Eos # (Auto) 0.2 (0.0-0.7) 10^3/uL Baso # (Auto) 0.0 (0.0-0.1) 10^3/uL Absolute Nucleated RBC 0.00 x10^3/uL Nucleated RBC % 0.0 /100WBC Manual Slide Review Indicated WBC Morphology 1+ TOXIC GRANULATION (NORMAL) Platelet Estimate NORMAL (130-450,000) (NORMAL) Platelet Morphology NORMAL APPEARANCE (NORMAL) RBC Morph Micro Appear 2+ DIOR CELLS (NORMAL) Sodium 132 L 133 L (135-145) mmol/L Potassium 2.9 L 3.1 L (3.5-4.5) mmol/L Chloride 102 105 (101-111) mmol/L Carbon Dioxide 27 24 (21-32) mmol/L Anion Gap 3.0 L 4.0 L (6-13) BUN 11 14 (6-20) mg/dL Creatinine 0.4 L 0.6 (0.6-1.3) mg/dL Estimated GFR (MDRD) 154 97 (>89) Glucose 96 196 H (74-104) mg/dL Calcium 7.8 L 7.8 L (8.5-10.3) mg/dL Phosphorus 3.0 1.6 L (2.5-5.0) mg/dL Magnesium 1.7 2.1 (1.7-2.3) mg/dL Total Bilirubin 0.5 (0.2-1.0) mg/dL AST 20 (10-42) IU/L ALT 22 (10-60) IU/L Alkaline Phosphatase 53 (42-121) IU/L Total Protein 3.9 L (6.4-8.9) g/dL Albumin 2.6 L (3.2-5.5) g/dL Globulin 1.3 L (2.1-4.2) g/dL Albumin/Globulin Ratio 2.0 (1.0-2.2) Vitamin B12 2817 H (180-914) pg/mL Assessment/Plan Problem List (1) Sigmoid volvulus: Impression: Intervally improving. Diet has been advanced to soft and bite-size per general surgery. She has required 2 doses of oral oxycodone overnight. Discussed her case with general surgery this morning. Recall the patient presented with nearly 2 weeks of constipation. She had progressive abdominal distention and pain associated. She was found on imaging to have sigmoid volvulus with distal transition point on CT. Taken to surgery on 10/02 with successful repair. Colostomy in place left lower abdomen. Having high-volume stool output. Her JACQUE drain has been putting out significant output, It appears mostly serous. It is cloudy and murky. Qualitatively, her urine is melter loader and clearer. She could still have a slow bladder leak, but seems unlikely. Most likely she has third spacing in the setting of her hypoalbuminemia. - General Surgery following,Discussed with them on 10/05. She is healing well. Concerned about high JACQUE drain output. - Diet managed by general surgery. - Leukocytosis as below. - Will stop we will stop maintenance fluids, she is eating and drinking. Monitor for further dehydration, labs as below. - Continue to monitor strict I/O - Scheduled Tylenol for pain, 1000 mg 3 times daily - As needed oxycodone available for pain - PT will work with patient once patient's heart rate is less than 130, Overall suspect discharge to SNF - Will need wound ostomy nurse consult on Tuesday - Transfer out of ICU once electrolytes stabilized and heart rate less than 130 - Replenish electrolytes as below, K>4, Mg>2, Phos>3 (2) Leukocytosis: Impression: Patient initially presented with leukocytosis 20.6. Increased to 29.1 immediately postoperatively, Has not improved below 19. Suspect this is mostly just a stress response from her profound dehydration on admission and her surgery. She has not exhibited other localizing signs of infection clearly. If she were to fever, I would preference evaluation and empiric treatment for urinary tract infection. Given her persistent leukocytosis, as of 10/05, we are going to broaden our infectious workup. Sending UA, chest x-ray, blood cultures, C. difficile. She denies dysuria, but she is had urinary retention postoperatively. Required straight cath overnight 10/04 - UA with trace LE, RBC, and few bacteria. Pending culture. - Given her minimal symptomology, we will hold off on antibiosis - Blood cultures - Chest x-ray without any focal infiltrate - Cell count and culture of her JACQUE drain output - C. difficile studies, precautions while in rule out (3) Refeeding syndrome: (4) Hypokalemia: (5) Hypophosphatemia: Impression: Intervally improving. She has had ongoing replenishment IV and oral. Potassium 2.9 this morning, 3 bags of KCl instilled. Creatinine normal. Magnesium 1.8, Phos 3.0. Remainder of electrolytes reasonably normal. Total net +10 L this hospitalization Patient was not eating for several days prior to arrival. She ran out of food at her home and was unable to get out of her house because she was so unwell. She had critically low potassium on arrival. She has a central line placed and has been removed seeping potassium and phosphate replacement. Vitamin B12 levels were checked at the patient's request, and are replete (2817 pg/mL) - Stopping maintenance fluids as above. - Completed IV KCl this morning, BMP recheck 1500 - Continue to trend Phos, mag, potassium every morning (6) Tachyarrhythmia: Impression: Tachycardia somewhat improved with her improved fluid balance. Suspect this is mostly driven by dehydration. She is eating and drinking. Discussed with the patient 10/04. She says her heart rates always been fast around 100-110. Other providers have noted this. She feels like 130 is faster than it typically is. She endorses that she is an anxious person. She endorses quite a bit of anxiety right now. Discussed trying something for anxiety, she is very reticent. Discussed Vistaril, she says she cannot take Benadryl because it causes psychosis. She says she cannot take propranolol because it causes a profound depression. Patient has been tachycardic since admission. Heart rates have been in the 120s to 130s. He EKG shows Sinus tachycardia. No concerning signs of atrial fibrillation, heart block or junctional rhythm. Consideration for sepsis physiology in the setting of tachycardia and leukocytosis. She has no other signs of end organ damage at this time. She may have a fever that is being masked by Tylenol, but unlikely. Intriguingly, she received 25 mg metoprolol tartrate without much change in her heart rate on 10/04. - Infectious monitoring as above - Repletion of electrolytes as above - She is able to work with PT with her current heart rate - If worsening, will give additional fluid bolus, avoid continuous drips to promote mobility - There is not a strict medical need to rate control her, but it is disrupting her care. Hopefully she can work with PT. - Nursing is continuing to encourage her to treat her pain and anxiety. (7) Delirium: Impression: Continues to normalize. Improved with sleep. Supportive of hospital induced delirium as initially suspected. Patient is at times hallucinating. At times she is ruminative. Overall she shows difficulty with attention. It waxes and wanes most consistent with a delirium. Will make every effort to maintain normal sleep-wake cycle - Delirium precautions - Continue Melatonin every 24 hours at 7 PM, takes 2 hours to be effective - Avoid labs and alarms overnight - As needed Zyprexa ODT if needed for safety - Would avoid benzodiazepines in her demographic (8) Hypertension: Impression: Patient with a chronic history of hypertension. She has been hypertensive during this visit. She normally takes valsartan 240 mg/day. - Hold antihypertensives at this time - Will resume in the next 1 to 2 days When she is more hemodynamically stable. I spent a total of 58 minutes in the care of this patient today. This time was spent reviewing labs, vital signs, imaging, interviewing and examining the patient, and discussing plan of care with them and their other care providers. Treating acute illness or injury that poses a threat to life. She remains critically ill in the ICU with refeeding syndrome. Aggressively repletion of her electrolytes. Discussed with general surgery today, infectious workup as above. [id number]
[2025-10-05 12:33] LABS: CASTS, URINE 0-2 Granular Casts /LPF; GLUCOSE, URINE (UA) NEGATIVE (NEGATIVE); KETONES,URINE (UA) NEGATIVE (NEGATIVE); OCCULT BLOOD,URINE TRACE-LYSED (NEGATIVE); SQUAMOUS EPITHELIAL CELL,UR RARE Squamous (<= Few)
[2025-10-05 13:44] LABS: BF CLARITY CLEAR; BF SOURCE PERITONEAL; CC,BF RBC 3000 /mm^3; CC,BF WBC 148 /mm^3
[2025-10-05 13:45] LABS: BF COLOR YELLOW
[2025-10-05 14:47] LABS: LYMPHOCYTES %,BODY FLUID 49 %; MACROPHAGES %,BODY FLUID 9 %; MESOTHELIAL %, BF 1 %; MONOCYTES %,BODY FLUID 14 %; NEUTROPHILS %, BF 27 %
[2025-10-05 15:38] LABS: BUN - BLOOD UREA NITROGEN 10.0 mg/dL (6-20); CARBON DIOXIDE - CO2 25.0 mmol/L (21-32); CREATININE 0.5 mg/dL (0.6-1.3); GFR - MDRD 119.0 (>89); PHOSPHORUS 1.9 mg/dL (2.5-5.0)
[2025-10-05] MEDS: NEUTRA-PHOS 250 MG TABLET PO SCH (17:40)
[2025-10-06 04:39] LABS: HCT - HEMATOCRIT 35.6 % (37.0-47.0); HGB - HEMOGLOBIN 12.3 g/dL (12.0-16.0); MEAN PLATELET VOLUME 8.7 fL (7.9-10.8); NRBC ABSOLUTE COUNT (AUTO) 0.00 x10^3/uL; NUCLEATED RED BLOOD CELLS AUTO 0.0 /100WBC; PLT - PLATELET COUNT 364 10^3/uL (130-450); RED CELL DISTRIBUTION WIDTH 12.1 % (12.0-15.0); VBG PH 7.513 (7.31-7.41)
[2025-10-06 04:53] LABS: PHOSPHORUS 2.6 mg/dL (2.5-5.0)
[2025-10-06 05:01] LABS: BUN - BLOOD UREA NITROGEN 10.0 mg/dL (6-20); CARBON DIOXIDE - CO2 27.0 mmol/L (21-32); CREATININE 0.5 mg/dL (0.6-1.3); GFR - MDRD 119.0 (>89)
[2025-10-06 05:08] LABS: GLUCOSE BODY FLUID 106.0 mg/dL (.); PROTEIN BODY FLUID 1.3 g/dL (.)
[2025-10-06] MEDS: ONDANSETRON 4 MG/2 ML VIAL IVP PRN (05:15)
[2025-10-06] MEDS: POTASSIUM CHLOR 20 MEQ/100 ML 20 MEQ/100 ML BAG IV ONE (06:49)
[2025-10-06] MEDS ORDERED: BENZOCAINE/MENTHOL LOZENGE MM PRN (07:52)
[2025-10-06] MEDS: METOPROLOL TARTRATE 50 MG TABLET PO SCH (08:33)
[2025-10-06] MEDS: MAGNESIUM OXIDE 400 MG TABLET PO SCH (08:33)
--- NOTE | 2025-10-06 10:06 | PROVIDER PROGRESS NOTE ---
Subjective General Admit Date: 10/02/25 Procedure Date: 10/02/25 Post Op Days: 4 Procedure Performed: Ex-lap, sigmoidectomy w/ end colostomy Other Other Information/Narrative: Pain controlled. Tolerating diet in small amounts, some indigestion this AM, but denies n/v. No f/c. No acute events overnight. Wound Assessment Wound/Incisions: positive Dressing dry and intact Drain Type: 19 Round JACQUE Drain Output Description: Serous Approximate mls Output: 780 Review of Systems Status of ROS: 10 or more systems reviewed and unremarkable except as noted in history and below Exam Exam Vital Signs: Vital Signs x48h Temp Pulse Pulse Resp BP BP Pulse Ox 10/06/25 08:33 113 H 127/76 10/06/25 08:00 99.3 F 126 H 23 127/76 99 10/06/25 07:00 130 H 20 121/80 99 10/06/25 06:00 129 H 23 122/88 99 10/06/25 05:00 98.1 F 127 H 20 130/88 96 10/06/25 04:00 118 H 18 110/67 97 10/06/25 03:00 111 H 18 127/73 98 10/06/25 02:00 117 H 17 100/66 96 GEN: No acute distress, alert and oriented CV: tachycardia PULM: non labored, on RA ABD: soft, appropriate incisional ttp, no rebound or guarding. Ostomy pink and edematous (improving) with excellent continued output over the last 24 hours. Incision c/d/i with dressing in place. JACQUE output serous, high output. EXT: no clubbing, cyanosis, or edema Image Laboratory Last Values WBC 19.3 x10^3/uL (4.8-10.8) H 10/04/25 04:17 RBC 3.84 10^6/uL (4.20-5.40) L 10/04/25 04:17 Hgb 12.0 g/dL (12.0-16.0) 10/04/25 04:17 Hct 34.4 % (37.0-47.0) L 10/04/25 04:17 MCV 89.6 fL (81.0-99.0) 10/04/25 04:17 MCH 31.3 pg (27.0-31.0) H 10/04/25 04:17 MCHC 34.9 g/dL (32.0-36.0) 10/04/25 04:17 RDW 12.2 % (12.0-15.0) 10/04/25 04:17 Plt Count 286 10^3/uL (130-450) 10/04/25 04:17 MPV 8.5 fL (7.9-10.8) 10/04/25 04:17 Neut # (Auto) 15.8 10^3/uL (1.5-6.6) H 10/04/25 04:17 Lymph # (Auto) 1.8 10^3/uL (1.5-3.5) 10/04/25 04:17 [place] # (Auto) 1.5 10^3/uL (0.0-1.0) H 10/04/25 04:17 Eos # (Auto) 0.0 10^3/uL (0.0-0.7) 10/04/25 04:17 Baso # (Auto) 0.0 10^3/uL (0.0-0.1) 10/04/25 04:17 Absolute Nucleated RBC 0.00 x10^3/uL 10/04/25 04:17 Total Counted 100 10/03/25 04:30 Band Neuts % (Manual) 0 % (0-10) 10/03/25 04:30 Abnorm Lymph % (Manual) 0 % 10/03/25 04:30 Metamyelocytes % 1 % (-0) H 10/02/25 10:26 Nucleated RBC % 0.0 /100WBC 10/04/25 04:17 Neutrophils # (Manual) 26.5 10^3/uL (1.5-6.6) H 10/03/25 04:30 Lymphocytes # (Manual) 1.5 10^3/uL (1.5-3.5) 10/03/25 04:30 Monocytes # (Manual) 1.2 10^3/uL (0.0-1.0) H 10/03/25 04:30 Eosinophils # (Manual) 0.0 10^3/uL (0-0.7) 10/03/25 04:30 Basophils # (Manual) 0.0 10^3/uL (0-0.1) 10/03/25 04:30 Differential Comment MANUAL DIFFERENTIAL 10/03/25 04:30 WBC Morphology NORMAL APPEARANCE (NORMAL) 10/03/25 04:30 Platelet Estimate NORMAL (130-450,000) (NORMAL) 10/03/25 04:30 Platelet Morphology NORMAL APPEARANCE (NORMAL) 10/03/25 04:30 RBC Morph Micro Appear NORMAL APPEARANCE (NORMAL) 10/03/25 04:30 VBG pH 7.465 (7.31-7.41) H 10/04/25 04:17 Ionized Calcium 1.21 mmol/L (1.09-1.30) 10/04/25 04:17 Sodium 136 mmol/L (135-145) 10/04/25 04:17 Potassium 2.7 mmol/L (3.5-4.5) L 10/04/25 04:17 Chloride 105 mmol/L (101-111) 10/04/25 04:17 Carbon Dioxide 25 mmol/L (21-32) 10/04/25 04:17 Anion Gap 6.0 (6-13) 10/04/25 04:17 BUN 13 mg/dL (6-20) 10/04/25 04:17 Creatinine 0.5 mg/dL (0.6-1.3) L 10/04/25 04:17 Estimated GFR (MDRD) 119 (>89) 10/04/25 04:17 Glucose 99 mg/dL (74-104) 10/04/25 04:17 Lactic Acid 0.9 mmol/L (0.5-2.2) 10/02/25 10:44 Calcium 8.0 mg/dL (8.5-10.3) L 10/04/25 04:17 Phosphorus 2.5 mg/dL (2.5-5.0) 10/04/25 04:17 Magnesium 1.8 mg/dL (1.7-2.3) 10/04/25 04:17 Total Bilirubin 1.1 mg/dL (0.2-1.0) H 10/02/25 10:44 AST 27 IU/L (10-42) 10/02/25 10:44 ALT 35 IU/L (10-60) 10/02/25 10:44 Alkaline Phosphatase 83 IU/L (42-121) 10/02/25 10:44 Total Protein 6.2 g/dL (6.4-8.9) L 10/02/25 10:44 Albumin 3.9 g/dL (3.2-5.5) 10/02/25 16:21 Globulin 2.1 g/dL (2.1-4.2) 10/02/25 10:44 Albumin/Globulin Ratio 2.0 (1.0-2.2) 10/02/25 10:44 Lipase 21 U/L (11-82) 10/02/25 10:44 Nasal Screen MRSA (PCR) NEGATIVE (NEGATIVE) 10/02/25 15:30 Impression/Plan Problem List (1) Sigmoid volvulus: (2) Leukocytosis: (3) Refeeding syndrome: (4) Hypokalemia: (5) Hypophosphatemia: (6) Tachyarrhythmia: (7) Delirium: (8) Hypertension: Plan 72 yo F who presented on 10/02 with multiple days of abdominal distension and pain, 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 Unable to reduce with proctostomy, so patient underwent Ex-lap, sigmoidectomy and end colostomy on 10/02 which she tolerated well. Continues to have good ostomy output. POD#3 Neuro - multimodal pain control with scheduled tylenol, prn oxycodone and prn IV Dilaudid for break though pain - She had some initial confusion after surgery, but oriented this AM - anxiety stable to slightly improve dthis AM CVS - HR 110s-120s this AM, improving (mostly 110s in last 24 hours) - BP stable - Metoprolol ordered for sustained tachy >130. Medicine team working with patient to treat. She has tried many medications in the past for chronic tachycardia. - Continue to monitor Resp - Saturating well on RA - Encouraging IS, continue to monitor GI/FEN - Patient continues to have excellent ostomy output, tolerating soft diet in small amounts. Some indigestion this AM. I will add pepcid this AM for GI ppx and to treat reflux. Patient encouraged to eat in small amounts as she is hungry, reminded that protein supplement shakes will replace nutrition of one meal. - I discussed the plan for the patient to have the ostomy for at least 3-6 months to allow for internal healing prior to consideration for ostomy takedown. Patient had understood she may need another surgery during this hospital stay. The initial plan was for reduction of the volvulus with delayed sigmoidectomy and primary anastomosis, but she required emergent sigmoidectomy with ostomy after her volvulus could not be reduced. There are no plans for additional surgery during this hospital stay at this time. I explained this to the patient. She is disheartened to need the ostomy for so long but voices understanding. - Maintain K>4, P>3 and Mg>2 (medicine team replacing). Electrolyte abnormalities indicate refeeding syndrome. - Chery replaced for retention and due to concern for possible ureteral injury given h/o surgery, high JACQUE output, decreased urine output. Checking JACQUE creatinine (send out lab) to rule out injury. JACQUE remains serous, output decreasing. Continue to monitor at this time. Could consider retrograde pyleogram or cystoscopy if increased concern. High JACQUE output more likely a result of patient's protein deficiency and third spacing. - UOP adequate - Continue strict I/Os. Heme - Hgb stable - Lovenox for DVT ppx ID - WBC trending down. Infectious workup pending per medicine team including UA (urine cx pending), B Cx (NGTD), c diff (negative) - No spillage in the OR, agree with only starting abx if source identified as patient is asymptomatic aside from chronic tachycardia (which is improving) Endo - BG's normal on labs, no h/o DM - Continue to monitor MSK - increasing activity, patient up to chair yesterday - encourage activity Lines/Drains - Maintain PIV access and TLC until recovered Patient inpatient in ICU, consider transfer to floor when HR improved. Appreciate medicine team recommendations. I discussed the plan of care as above the patient and the medicine team today. Primary surgeon updated as well.
[2025-10-06] MEDS: FAMOTIDINE 20 MG TABLET PO SCH (13:54)
--- NOTE | 2025-10-06 16:30 | PT Plan of Care ---
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 Please see chart for complete medical hx. The pt was received resting comfortably supine in bed and presented today with a fair level of anxiety related to the idea of mobilizing, decreased B UE and LE strength, decreased activity tolerance, and mild balance impairment which limited her tolerance during functional mobility. Her overall tolerance throughout this assessment was limited by asymptomatic tachycardia vs weakness or fatigue. She also required extensive encouragement to participate due to anxiety. At this time recommend continued skilled PT intervention while in the acute setting and DC to SNF for further rehab once pt medically stable as she lives alone and is functioning far below her baseline level of independent. This plan was discussed with the pt and she was in agreement with this. At the e nd of the session the pt was sitting up in a chair with call light in reach, chair alarm in place and on, and all needs met. RN, CONDENSER TUBE TENDER, and MD all updated on pt's status and DC rec. PATIENT/FAMILY GOALS Patient/Family Goals: To get stronger and be able to finish my will GOALS Improve supine to sit to:: Modified Independent Improve sit to stand to:: Standby Assist Improve pivot transfer ability to:: Standby Assist Improve sit to supine to:: Modified Independent Improve gait ability to:: CGA Advance Assistive Device to:: Front Wheeled Walker Increase distance walked to (in feet):: 25 Improve Sitting Balance to:: Good PLAN Frequency: 1-2x/day Duration: Until goals are met DISCHARGE RECOMMENDATIONS [facility] Support/Services Needed: With assist Other Discharge Equipment: pt owns all recommended DME Transport Needs at Discharge: Personal vehicle
--- NOTE | 2025-10-06 19:15 | PROVIDER PROGRESS NOTE ---
Subjective Prog Note Date Prog Note Date: 10/06/25 Prog Note Time: 18:57 Subjective Subjective: No acute events overnight. Patient's electrolytes have stabilized. Her blood pressure is stabilized. Her pulse is still high. She feels well today. She feels like she is improving. She is eager to continue getting better. She suspect she will need some help and suspect she will discharge to SNF given that she lives alone and has a new ostomy she has to deal with. She denies fevers or chills, chest pain, dyspnea, palpitations, abdominal pain, nausea or vomiting. She is still having significant output from her ostomy. Her JACQUE drain has dropped off significantly since her Chery was placed this morning. Current Medications Current Medications Current Medications: Current Medications Generic Name Dose Route Start Last Admin Trade Name Freq PRN Reason Stop Dose Admin Acetaminophen 1,000 mg 10/03/25 22:00 10/06/25 13:58 Acetaminophen 500 Mg Tablet PO 1,000 mg TID ARDHA Administration Atorvastatin Calcium 20 mg 10/06/25 21:00 Atorvastatin 10 Mg Tablet PO QPM RADHA Famotidine 20 mg 10/06/25 11:00 10/06/25 13:54 Famotidine 20 Mg Tablet PO 20 mg DAILY RADHA Administration Hydromorphone HCl 1 mg 10/04/25 11:02 Hydromorphone 1 Mg/Ml Carpuject IVP Q2H PRN Severe Pain (Level 7-10) Hydroxyzine Pamoate 25 mg 10/03/25 17:46 Hydroxyzine Pamoate 25 Mg Capsule PO Q6H PRN Anxiety Magnesium Oxide 400 mg 10/06/25 08:00 10/06/25 08:33 Magnesium Oxide 400 Mg Tablet PO 400 mg DAILYWM RADHA Administration Melatonin 3 mg 10/03/25 19:00 10/05/25 21:42 Melatonin 3 Mg Tablet PO Not Given Q24H RADHA Metoprolol Tartrate 50 mg 10/06/25 09:00 10/06/25 08:33 Metoprolol Tartrate 50 Mg Tablet PO 50 mg BID RADHA Administration Olanzapine 5 mg 10/03/25 17:46 Olanzapine Odt 5 Mg Tablet TL DAILY PRN Agitation Ondansetron HCl 4 mg 10/02/25 15:32 Ondansetron Odt 4 Mg Tablet TL Q6HR PRN Nausea / Vomiting Ondansetron HCl 4 mg 10/02/25 15:32 10/06/25 05:15 Ondansetron 4 Mg/2 Ml Vial IVP 4 mg Q6HR PRN Administration Nausea / Vomiting Oxycodone HCl 5 mg 10/02/25 15:32 10/06/25 05:14 Oxycodone 5 Mg Tablet PO 5 mg Q4HR PRN Administration Pain 5 to 7 Oxycodone HCl 10 mg 10/02/25 15:32 Oxycodone 5 Mg Tablet PO Q4HR PRN Pain 8 to 10 Sodium Chloride 10 ml 10/02/25 17:00 10/06/25 08:34 Sodium Chloride Flush 0.9% 10 Ml Syringe IVP 10 ml 0100,0900,1700 RADHA Administration Sodium Chloride 10 ml 10/02/25 15:32 Sodium Chloride Flush 0.9% 10 Ml Syringe IVP PRN PRN NEEDED PER PROVIDER ORDERS Tamsulosin HCl 0.4 mg 10/06/25 21:00 Tamsulosin 0.4 Mg Capsule PO NIGHTLY [facility] Throat Lozenges 1 lozenge 10/06/25 07:52 Benzocaine/Menthol Lozenge MM Q2HR PRN Throat pain Objective Vital Signs/Intake & Output Reviewed Vital Signs: Yes Vital Signs: Vital Signs x48h Temp Pulse Pulse Resp BP BP Pulse Ox 10/06/25 16:57 36.8 C 118 H 18 136/94 H 97 10/06/25 14:00 37.6 C 111 H 17 127/81 98 10/06/25 13:00 117 H 137/85 H 10/06/25 13:00 119 H 16 137/85 H 98 10/06/25 12:00 37.4 C 112 H 22 139/88 H 99 10/06/25 11:00 112 H 19 131/75 H 96 Intake & Output: Intake & Output 10/03/25 10/04/25 10/05/25 10/06/25 23:59 23:59 23:59 23:59 Intake Total 6052 / 6052 6338 / 6338 5063.2 / 5063.2 800 / 800 Output Total 4756 / 4756 2862 / 2862 3285 / 3285 1325 / 1325 Balance 1296 / 1296 3476 / 3476 1778.2 / 1778.2 -525 / -525 Weight (kg) 62 kg 62.5 kg 66 kg 67.5 kg Objective Comments/Other: GEN: No acute distress, Lying in bed HEENT: NC/AT, normal appearance of external ears and nose. Hearing baseline. Cardiac: Tachycardic and regular. No murmurs appreciated. Pulm: Lungs CTA bilaterally, no cough, no wheezes. Normal effort on room air Abdomen: Improvement in distention, mild distention still present. Soft, nontender. Ostomy in place in left lower quadrant, Soft stool output.JACQUE drain now with less serous drainage. Slowing down somewhat. Surgical dressing CDI. Extremities: Moves all 4 extremities equally. Normal tone. Neuro: Face symmetric, CN II through XII intact grossly. No focal neurologic deficit. No tremor or tongue fasciculations. Psych: Mood elated. Reactive affect. Mood lability. Good fund of knowledge. Lab Results 10/06/25 04:20 10/06/25 09:25 Other Labs: Lab Results x24hrs 10/06/25 10/06/25 10/05/25 Range/Units 09:25 04:20 10:10 WBC 14.5 H (4.8-10.8) x10^3/uL RBC 3.96 L (4.20-5.40) 10^6/uL Hgb 12.3 (12.0-16.0) g/dL Hct 35.6 L (37.0-47.0) % MCV 89.9 (81.0-99.0) fL MCH 31.1 H (27.0-31.0) pg MCHC 34.6 (32.0-36.0) g/dL RDW 12.1 (12.0-15.0) % Plt Count 364 (130-450) 10^3/uL MPV 8.7 (7.9-10.8) fL Neut # (Auto) 10.5 H (1.5-6.6) 10^3/uL Lymph # (Auto) 2.2 (1.5-3.5) 10^3/uL [place] # (Auto) 1.3 H (0.0-1.0) 10^3/uL Eos # (Auto) 0.3 (0.0-0.7) 10^3/uL Baso # (Auto) 0.0 (0.0-0.1) 10^3/uL Absolute Nucleated RBC 0.00 x10^3/uL Nucleated RBC % 0.0 /100WBC VBG pH 7.513 H (7.31-7.41) Ionized Calcium 1.17 (1.09-1.30) mmol/L Sodium 132 L (135-145) mmol/L Potassium 3.8 3.8 (3.5-4.5) mmol/L Chloride 103 (101-111) mmol/L Carbon Dioxide 27 (21-32) mmol/L Anion Gap 2.0 L (6-13) BUN 10 (6-20) mg/dL Creatinine 0.5 L (0.6-1.3) mg/dL Estimated GFR (MDRD) 119 (>89) Glucose 99 (74-104) mg/dL Calcium 8.0 L (8.5-10.3) mg/dL Phosphorus 2.6 (2.5-5.0) mg/dL Magnesium 1.9 (1.7-2.3) mg/dL Fluid pH 8.2 (Not Estab.) Fluid Glucose 106 (.) mg/dL Fluid Total Protein 1.3 (.) g/dL Miscellaneous Test COMMENT (.) Assessment/Plan Problem List (1) Sigmoid volvulus: Impression: She continues to do well with regard to her surgery. Her pain is improved. She has not needed much by way of oxycodone today. She continues on scheduled Tylenol. Recall the patient presented with nearly 2 weeks of constipation. She had progressive abdominal distention and pain associated. She was found on imaging to have sigmoid volvulus with distal transition point on CT. Taken to surgery on 10/02 with successful repair. Colostomy in place left lower abdomen. Having high-volume stool output. Her JACQUE drain has been putting out significant output, It appears mostly serous. It is cloudy and murky. Qualitatively, her urine is building associate and clearer. She could still have a slow bladder leak, but seems unlikely. Most likely she has third spacing in the setting of her hypoalbuminemia. - General Surgery following,Discussed with them on 10/05. She is healing well. Concerned about high JACQUE drain output. - Diet managed by general surgery. - Leukocytosis as below. - Continue to monitor strict I/O - Scheduled Tylenol for pain, 1000 mg 3 times daily - As needed oxycodone available for pain - PT evaluated and reports she is strong. Recommending DC to SNF, functioning below baseline - Will need wound ostomy nurse consult on Tuesday - Transferred out of the ICU today. - Continue replacement of her electrolytes. (2) Leukocytosis: Impression: Given urinary retention, leukocytosis, and her urine which is growing GNR's, will treat for UTI. Notably leukocytosis improving off of antibiotics Suspect this is mostly just a stress response from her profound dehydration on admission and her surgery. She has not exhibited other localizing signs of infection clearly. If she were to fever, I would preference evaluation and empiric treatment for urinary tract infection. Given her persistent leukocytosis, as of 10/05, we are going to broaden our infectious workup. Sending UA, chest x-ray, blood cultures, C. difficile. She denies dysuria, but she is had urinary retention postoperatively. Required straight cath overnight 10/04 Patient had a chest x-ray, blood cultures, C. difficile studies, and cell count of her JACQUE drain output which were all unremarkable. - Start ceftriaxone x 3 days - Follow-up blood cultures, NGTD - CBC, BMP a.m. (3) Refeeding syndrome: (4) Hypokalemia: (5) Hypophosphatemia: Impression: K is now effectively normalized. Is at 3.8. Started daily magnesium supplementation today. Phos 2.6. Total net +10.6 L this hospitalization Patient was not eating for several days prior to arrival. She ran out of food at her home and was unable to get out of her house because she was so unwell. She had critically low potassium on arrival. She has a central line placed and has been removed seeping potassium and phosphate replacement. Vitamin B12 levels were checked at the patient's request, and are replete (2817 pg/mL) - Monitor fluid balance, consider resuming maintenance fluids. - Recheck BMP, mag, Phos in a.m., replenish as needed - Likely remove central line tomorrow (6) Tachyarrhythmia: Impression: Tachycardia has not been improving. She continues to have tachycardia with in the 110s to 130s. Started on metoprolol today Discussed with the patient 10/04. She says her heart rates always been fast around 100-110. Other providers have noted this. She feels like 130 is faster than it typically is. She endorses that she is an anxious person. She endorses quite a bit of anxiety right now. Discussed trying something for anxiety, she is very reticent. Discussed Vistaril, she says she cannot take Benadryl because it causes psychosis. She says she cannot take propranolol because it causes a profound depression. Patient has been tachycardic since admission. Heart rates have been in the 120s to 130s. He EKG shows Sinus tachycardia. No concerning signs of atrial fibrillation, heart block or junctional rhythm. Consideration for sepsis physiology in the setting of tachycardia and leukocytosis. She has no other signs of end organ damage at this time. She may have a fever that is being masked by Tylenol, but unlikely. Intriguingly, she received 25 mg metoprolol tartrate without much change in her heart rate on 10/04. - Treating infection as above - Discontinue telemetry - Started on Lopressor 50 mg twice daily o Cautiously monitor as we start antibiotics tomorrow - Nursing is continuing to encourage her to treat her pain and anxiety. (7) Delirium: Impression: Suspect she is at or near her baseline. Treating infection as above. Improved with sleep. Supportive of hospital induced delirium as initially suspected. Patient is at times hallucinating. At times she is ruminative. Overall she shows difficulty with attention. It waxes and wanes most consistent with a delirium. Will make every effort to maintain normal sleep-wake cycle - Delirium precautions - Continue Melatonin every 24 hours at 7 PM, takes 2 hours to be effective - Treat infection as above. - Avoid labs and alarms overnight - As needed Zyprexa ODT if needed for safety - Would avoid benzodiazepines in her demographic (8) Hypertension: Impression: Patient with a chronic history of hypertension. She has been hypertensive during this visit. She normally takes valsartan 240 mg/day. - Hold antihypertensives at this time - Likely resume valsartan at half dose 10/07 I spent a total of 41 minutes in the care of this patient today. This time was spent reviewing labs, vital signs, imaging, interviewing and examining the patient, and discussing plan of care with them and their other care providers. Refeeding syndrome resolving. Managing 2 or more chronic stable conditions and acute illness with systemic symptoms. Review of data as above. Prescription drug management as above. [id number]
[2025-10-06] MEDS: TAMSULOSIN 0.4 MG CAPSULE PO SCH (21:18)
[2025-10-06] MEDS: ATORVASTATIN 10 MG TABLET PO SCH (21:18)
[2025-10-06] MEDS: cefTRIAXone 1 GM in SODIUM CHLORIDE 0.9% MINIBAG 100 ML IV SCH (21:19)
[2025-10-07 05:48] LABS: HCT - HEMATOCRIT 35.3 % (37.0-47.0); HGB - HEMOGLOBIN 11.7 g/dL (12.0-16.0); MEAN PLATELET VOLUME 8.7 fL (7.9-10.8); NRBC ABSOLUTE COUNT (AUTO) 0.00 x10^3/uL; NUCLEATED RED BLOOD CELLS AUTO 0.0 /100WBC; PLT - PLATELET COUNT 399 10^3/uL (130-450); RED CELL DISTRIBUTION WIDTH 12.4 % (12.0-15.0)
[2025-10-07 06:06] LABS: BUN - BLOOD UREA NITROGEN 10.0 mg/dL (6-20); CARBON DIOXIDE - CO2 26.0 mmol/L (21-32); CREATININE 0.5 mg/dL (0.6-1.3); GFR - MDRD 119.0 (>89); PHOSPHORUS 2.4 mg/dL (2.5-5.0)
--- NOTE | 2025-10-07 06:52 | PROVIDER PROGRESS NOTE ---
Subjective General Admit Date: 10/02/25 Procedure Date: 10/02/25 Post Op Days: 5 Procedure Performed: Ex-lap, sigmoidectomy w/ end colostomy Other Other Information/Narrative: Patient denies pain. She was trasferred to med/surg from ICU yesterday and likes her new room. Tolerating diet in small amounts. Denies n/v. No acute events overnight. Wound Assessment Wound/Incisions: positive Dressing dry and intact Drain Type: 19 Round JACQUE Drain Output Description: Serous Approximate mls Output: 330 Review of Systems Status of ROS: 10 or more systems reviewed and unremarkable except as noted in history and below Exam Exam Vital Signs: Vital Signs x48h Temp Pulse Resp BP Pulse Ox 10/07/25 05:10 97.9 F 108 H 16 156/98 H 98 10/07/25 00:00 97.9 F 109 H 16 157/99 H 97 GEN: No acute distress, alert and oriented CV: tachycardia PULM: non labored, on RA ABD: soft, appropriate incisional ttp, no rebound or guarding. Ostomy pink and edematous (improving) with excellent continued output over the last 24 hours. Incision c/d/i with dressing in place. JACQUE output serous, high output. EXT: no clubbing, cyanosis, or edema Image Laboratory Last Values WBC 19.3 x10^3/uL (4.8-10.8) H 10/04/25 04:17 RBC 3.84 10^6/uL (4.20-5.40) L 10/04/25 04:17 Hgb 12.0 g/dL (12.0-16.0) 10/04/25 04:17 Hct 34.4 % (37.0-47.0) L 10/04/25 04:17 MCV 89.6 fL (81.0-99.0) 10/04/25 04:17 MCH 31.3 pg (27.0-31.0) H 10/04/25 04:17 MCHC 34.9 g/dL (32.0-36.0) 10/04/25 04:17 RDW 12.2 % (12.0-15.0) 10/04/25 04:17 Plt Count 286 10^3/uL (130-450) 10/04/25 04:17 MPV 8.5 fL (7.9-10.8) 10/04/25 04:17 Neut # (Auto) 15.8 10^3/uL (1.5-6.6) H 10/04/25 04:17 Lymph # (Auto) 1.8 10^3/uL (1.5-3.5) 10/04/25 04:17 [place] # (Auto) 1.5 10^3/uL (0.0-1.0) H 10/04/25 04:17 Eos # (Auto) 0.0 10^3/uL (0.0-0.7) 10/04/25 04:17 Baso # (Auto) 0.0 10^3/uL (0.0-0.1) 10/04/25 04:17 Absolute Nucleated RBC 0.00 x10^3/uL 10/04/25 04:17 Total Counted 100 10/03/25 04:30 Band Neuts % (Manual) 0 % (0-10) 10/03/25 04:30 Abnorm Lymph % (Manual) 0 % 10/03/25 04:30 Metamyelocytes % 1 % (-0) H 10/02/25 10:26 Nucleated RBC % 0.0 /100WBC 10/04/25 04:17 Neutrophils # (Manual) 26.5 10^3/uL (1.5-6.6) H 10/03/25 04:30 Lymphocytes # (Manual) 1.5 10^3/uL (1.5-3.5) 10/03/25 04:30 Monocytes # (Manual) 1.2 10^3/uL (0.0-1.0) H 10/03/25 04:30 Eosinophils # (Manual) 0.0 10^3/uL (0-0.7) 10/03/25 04:30 Basophils # (Manual) 0.0 10^3/uL (0-0.1) 10/03/25 04:30 Differential Comment MANUAL DIFFERENTIAL 10/03/25 04:30 WBC Morphology NORMAL APPEARANCE (NORMAL) 10/03/25 04:30 Platelet Estimate NORMAL (130-450,000) (NORMAL) 10/03/25 04:30 Platelet Morphology NORMAL APPEARANCE (NORMAL) 10/03/25 04:30 RBC Morph Micro Appear NORMAL APPEARANCE (NORMAL) 10/03/25 04:30 VBG pH 7.465 (7.31-7.41) H 10/04/25 04:17 Ionized Calcium 1.21 mmol/L (1.09-1.30) 10/04/25 04:17 Sodium 136 mmol/L (135-145) 10/04/25 04:17 Potassium 2.7 mmol/L (3.5-4.5) L 10/04/25 04:17 Chloride 105 mmol/L (101-111) 10/04/25 04:17 Carbon Dioxide 25 mmol/L (21-32) 10/04/25 04:17 Anion Gap 6.0 (6-13) 10/04/25 04:17 BUN 13 mg/dL (6-20) 10/04/25 04:17 Creatinine 0.5 mg/dL (0.6-1.3) L 10/04/25 04:17 Estimated GFR (MDRD) 119 (>89) 10/04/25 04:17 Glucose 99 mg/dL (74-104) 10/04/25 04:17 Lactic Acid 0.9 mmol/L (0.5-2.2) 10/02/25 10:44 Calcium 8.0 mg/dL (8.5-10.3) L 10/04/25 04:17 Phosphorus 2.5 mg/dL (2.5-5.0) 10/04/25 04:17 Magnesium 1.8 mg/dL (1.7-2.3) 10/04/25 04:17 Total Bilirubin 1.1 mg/dL (0.2-1.0) H 10/02/25 10:44 AST 27 IU/L (10-42) 10/02/25 10:44 ALT 35 IU/L (10-60) 10/02/25 10:44 Alkaline Phosphatase 83 IU/L (42-121) 10/02/25 10:44 Total Protein 6.2 g/dL (6.4-8.9) L 10/02/25 10:44 Albumin 3.9 g/dL (3.2-5.5) 10/02/25 16:21 Globulin 2.1 g/dL (2.1-4.2) 10/02/25 10:44 Albumin/Globulin Ratio 2.0 (1.0-2.2) 10/02/25 10:44 Lipase 21 U/L (11-82) 10/02/25 10:44 Nasal Screen MRSA (PCR) NEGATIVE (NEGATIVE) 10/02/25 15:30 Impression/Plan Problem List (1) Sigmoid volvulus: (2) Leukocytosis: (3) Refeeding syndrome: (4) Hypokalemia: (5) Hypophosphatemia: (6) Tachyarrhythmia: (7) Delirium: (8) Hypertension: Plan 72 yo F who presented on 10/02 with multiple days of abdominal distension and pain, 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 Unable to reduce with proctostomy, so patient underwent Ex-lap, sigmoidectomy and end colostomy on 10/02 which she tolerated well. Continues to have good ostomy output. POD#5 Neuro - multimodal pain control with scheduled tylenol, prn oxycodone and prn IV Dilaudid for break though pain - She had some initial confusion after surgery, but oriented this AM - anxiety stable to slightly improved this AM CVS - HR 100s-110s this AM, improving (mostly 110s in last 24 hours) - BP stable - Metoprolol ordered for sustained tachy >130. Medicine team working with patient to treat. She has tried many medications in the past for chronic tachycardia. - Continue to monitor Resp - Saturating well on RA - Encouraging IS, continue to monitor GI/FEN - Patient continues to have excellent ostomy output, tolerating soft diet in small amounts. Some indigestion this AM. I will add pepcid this AM for GI ppx and to treat reflux. Patient encouraged to eat in small amounts as she is hungry, reminded that protein supplement shakes will replace nutrition of one meal. - I discussed the plan for the patient to have the ostomy for at least 3-6 months to allow for internal healing prior to consideration for ostomy takedown. Patient had understood she may need another surgery during this hospital stay. The initial plan was for reduction of the volvulus with delayed sigmoidectomy and primary anastomosis, but she required emergent sigmoidectomy with ostomy after her volvulus could not be reduced. There are no plans for additional surgery during this hospital stay at this time. I explained this to the patient. She is disheartened to need the ostomy for so long but voices understanding. - Maintain K>4, P>3 and Mg>2 (medicine team replacing). Electrolyte abnormalities indicate refeeding syndrome. - Chery replaced for retention and due to concern for possible ureteral injury given h/o surgery, high JACQUE output, decreased urine output. Checking JACQUE creatinine (send out lab) to rule out injury. JACQUE remains serous, output decreasing. Continue to monitor at this time. Could consider retrograde pyleogram or cystoscopy if increased concern. High JACQUE output more likely a result of patient's protein deficiency and third spacing. JACQUE output down today but has not been checked/emptied as much since patient transferred out of the ICU. - UOP adequate - Continue strict I/Os. Heme - Hgb stable - Lovenox for DVT ppx ID - WBC trending down. Infectious workup pending per medicine team including UA (urine cx pending, some gram negative growth noted), B Cx (NGTD at 1D), c diff (negative) - No spillage in the OR, agree with only starting abx if source identified as patient is asymptomatic aside from chronic tachycardia (which is improving) Endo - BG's normal on labs, no h/o DM - Continue to monitor MSK - increasing activity, patient up to chair yesterday - encourage activity Lines/Drains - Maintain PIV access and TLC until recovered Patient inpatient med/surg. Appreciate medicine team recommendations. I discussed the plan of care as above the patient and the medicine team today. Primary surgeon updated as well.
[2025-10-07] MEDS: NEUTRA-PHOS 250 MG TABLET PO ONE (08:28)
[2025-10-07] MEDS: POTASSIUM PHOSPHATE 15 MMOL in SODIUM CHLORIDE 0.9% 250 ML IV SCH (08:32)
[2025-10-07] MEDS: SODIUM CHLORIDE FLUSH 0.9% 10 ML SYRINGE IVP PRN (10:25)
--- NOTE | 2025-10-07 17:46 | PROVIDER PROGRESS NOTE ---
Subjective Prog Note Date Prog Note Date: 10/07/25 Prog Note Time: 17:36 Subjective Subjective: No acute events overnight. Patient was seen evaluated today. She remains tachycardic despite starting on beta-alanis and treatment of her UTI. She was able to work with PT yesterday. She is being recommended for SNF. Patient feels reasonably well today. Her pain is minimal. She has had marked decrease in her drain output today, however this is complicated by the fact that her drain has been emptied much less since she moved out of the ICU. Surgery is placing a larger reservoir today. Her fluid balance is not negative today. She is beginning to auto diurese. She denies any fever/chills, chest pain, dyspnea, abdominal pain, nausea, vomiting. Her ostomy output is reduced. Current Medications Current Medications Current Medications: Current Medications Generic Name Dose Route Start Last Admin Trade Name Freq PRN Reason Stop Dose Admin Acetaminophen 1,000 mg 10/03/25 22:00 10/07/25 14:12 Acetaminophen 500 Mg Tablet PO 1,000 mg TID RADHA Administration Atorvastatin Calcium 20 mg 10/06/25 21:00 10/06/25 21:18 Atorvastatin 10 Mg Tablet PO 20 mg QPM RADHA Administration Famotidine 20 mg 10/06/25 11:00 10/07/25 08:24 Famotidine 20 Mg Tablet PO 20 mg DAILY RADHA Administration Hydromorphone HCl 1 mg 10/04/25 11:02 Hydromorphone 1 Mg/Ml Carpuject IVP Q2H PRN Severe Pain (Level 7-10) Hydroxyzine Pamoate 25 mg 10/03/25 17:46 Hydroxyzine Pamoate 25 Mg Capsule PO Q6H PRN Anxiety Ceftriaxone Sodium 1 gm/ 100 mls @ 200 mls/hr 10/06/25 21:00 10/06/25 21:56 Sodium Chloride IV 10/08/25 21:29 Infused Q24H RADHA Infusion Magnesium Oxide 400 mg 10/06/25 08:00 10/07/25 08:28 Magnesium Oxide 400 Mg Tablet PO 400 mg DAILYWM RADHA Administration Melatonin 3 mg 10/03/25 19:00 10/06/25 19:54 Melatonin 3 Mg Tablet PO Not Given Q24H RADHA Metoprolol Tartrate 50 mg 10/06/25 09:00 10/07/25 08:31 Metoprolol Tartrate 50 Mg Tablet PO 50 mg BID RADHA Administration Olanzapine 5 mg 10/03/25 17:46 Olanzapine Odt 5 Mg Tablet TL DAILY PRN Agitation Ondansetron HCl 4 mg 10/02/25 15:32 Ondansetron Odt 4 Mg Tablet TL Q6HR PRN Nausea / Vomiting Ondansetron HCl 4 mg 10/02/25 15:32 10/06/25 05:15 Ondansetron 4 Mg/2 Ml Vial IVP 4 mg Q6HR PRN Administration Nausea / Vomiting Oxycodone HCl 5 mg 10/02/25 15:32 10/06/25 05:14 Oxycodone 5 Mg Tablet PO 5 mg Q4HR PRN Administration Pain 5 to 7 Oxycodone HCl 10 mg 10/02/25 15:32 Oxycodone 5 Mg Tablet PO Q4HR PRN Pain 8 to 10 Sodium Chloride 10 ml 10/02/25 17:00 10/07/25 08:32 Sodium Chloride Flush 0.9% 10 Ml Syringe IVP 10 ml 0100,0900,1700 RADHA Administration Sodium Chloride 10 ml 10/02/25 15:32 10/07/25 10:25 Sodium Chloride Flush 0.9% 10 Ml Syringe IVP 10 ml PRN PRN Administration NEEDED PER PROVIDER ORDERS Tamsulosin HCl 0.4 mg 10/06/25 21:00 10/06/25 21:18 Tamsulosin 0.4 Mg Capsule PO 0.4 mg NIGHTLY RADHA Administration Throat Lozenges 1 lozenge 10/06/25 07:52 Benzocaine/Menthol Lozenge MM Q2HR PRN Throat pain Objective Vital Signs/Intake & Output Reviewed Vital Signs: Yes Vital Signs: Vital Signs x48h Temp Pulse Resp BP Pulse Ox 10/07/25 13:00 36.6 C 115 H 17 141/91 H 97 Intake & Output: Intake & Output 10/04/25 10/05/25 10/06/25 10/07/25 23:59 23:59 23:59 23:59 Intake Total 6338 / 6338 5063.2 / 5063.2 1260 / 1260 1155 / 1155 Output Total 2862 / 2862 3285 / 3285 1935 / 1935 3148 / 3148 Balance 3476 / 3476 1778.2 / 1778.2 -675 / -675 -1992 / Weight (kg) 62.5 kg 66 kg 67.5 kg 66.5 kg Objective Comments/Other: GEN: No acute distress, Lying in bed HEENT: NC/AT, normal appearance of external ears and nose. Hearing baseline. Cardiac: Tachycardic and regular. No murmurs appreciated. Pulm: Lungs CTA bilaterally, no cough, no wheezes. Normal effort on room air Abdomen: Improvement in distention, mild distention still present. Soft, nontender. Ostomy in place in left lower quadrant, Soft stool output. JACQUE drain continues with serous drainage. Surgical dressing CDI. Extremities: Moves all 4 extremities equally. Normal tone. Neuro: Face symmetric, CN II through XII intact grossly. No focal neurologic deficit. No tremor or tongue fasciculations. Psych: Mood elated. Reactive affect. Mood lability. Good fund of knowledge. Lab Results 10/07/25 05:00 10/07/25 05:00 Other Labs: Lab Results x24hrs 10/07/25 10/07/25 Range/Units 08:47 05:00 WBC 12.9 H (4.8-10.8) x10^3/uL RBC 3.88 L (4.20-5.40) 10^6/uL Hgb 11.7 L (12.0-16.0) g/dL Hct 35.3 L (37.0-47.0) % MCV 91.0 (81.0-99.0) fL MCH 30.2 (27.0-31.0) pg MCHC 33.1 (32.0-36.0) g/dL RDW 12.4 (12.0-15.0) % Plt Count 399 (130-450) 10^3/uL MPV 8.7 (7.9-10.8) fL Neut # (Auto) 9.2 H (1.5-6.6) 10^3/uL Lymph # (Auto) 2.0 (1.5-3.5) 10^3/uL [place] # (Auto) 1.3 H (0.0-1.0) 10^3/uL Eos # (Auto) 0.3 (0.0-0.7) 10^3/uL Baso # (Auto) 0.0 (0.0-0.1) 10^3/uL Absolute Nucleated RBC 0.00 x10^3/uL Nucleated RBC % 0.0 /100WBC Sodium 131 L (135-145) mmol/L Potassium 3.2 L (3.5-4.5) mmol/L Chloride 102 (101-111) mmol/L Carbon Dioxide 26 (21-32) mmol/L Anion Gap 3.0 L (6-13) BUN 10 (6-20) mg/dL Creatinine 0.5 L (0.6-1.3) mg/dL Estimated GFR (MDRD) 119 (>89) Glucose 92 (74-104) mg/dL Calcium 7.8 L (8.5-10.3) mg/dL Phosphorus 2.4 L (2.5-5.0) mg/dL Urine Creatinine < 1.0 mg/dL Assessment/Plan Problem List (1) Sigmoid volvulus: Impression: Stable and improved. Minimal pain. She seems to be doing well. No narcotic usage over the last 24 hours. Recall the patient presented with nearly 2 weeks of constipation. She had progressive abdominal distention and pain associated. She was found on imaging to have sigmoid volvulus with distal transition point on CT. Taken to surgery on 10/02 with successful repair. Colostomy in place left lower abdomen. Having high-volume stool output. Her JACQUE drain has been putting out significant output, It appears mostly serous. It is cloudy and murky. Qualitatively, her urine is mission assessment specialist and clearer. She could still have a slow bladder leak, but seems unlikely. Most likely she has third spacing in the setting of her hypoalbuminemia. - General Surgery following, Discussed with them on 10/07, they are helping with drain output as below - Persistent high drain output o Send sample today, creatinine in the sample is consistent with transudate and not urine o Risk of bladder or ureteral injury is low o Larger drain reservoir by surgery 10/07, drain check every 2 hour ordered - Diet managed by general surgery - Leukocytosis as below. - Continue to monitor strict I/O - Scheduled Tylenol for pain, 1000 mg 3 times daily - As needed oxycodone available for pain - PT evaluated and reports she is strong. Recommending DC to SNF, functioning below baseline - Wound ostomy nurse was consulted by general surgery 10/07, they saw the patient and will see her again 10/08 - Continue replacement of her electrolytes. (2) Acute cystitis: (3) Leukocytosis: Impression: She continues to improve. Her leukocytosis continues to downtrend. ANC now is 9.2. Treating her for her Pseudomonas UTI. Recall the patient had a persistent leukocytosis since her presentation. Initially this was thought to be a stress response. After it stopped improving at 19,000, we broadened her infectious workup. This did reveal bacteriuria with Pseudomonas. She denies dysuria, but she is had urinary retention postoperatively. Required straight cath overnight 10/04 Patient had a chest x-ray, blood cultures, C. difficile studies, and cell count of her JACQUE drain output which were all unremarkable. - Stop Rocephin, will start on oral ciprofloxacin, Treat for 3 days - Follow-up blood cultures, NGTD - CBC, BMP a.m. (4) Refeeding syndrome: (5) Hypokalemia: (6) Hypophosphatemia: Impression: Continues to require repletion. Continue to monitor. She is starting to auto diurese following surgery. Urine output up to 1.2 L yesterday Patient was not eating for several days prior to arrival. She ran out of food at her home and was unable to get out of her house because she was so unwell. She had critically low potassium on arrival. She has a central line placed and has been removed seeping potassium and phosphate replacement. Vitamin B12 levels were checked at the patient's request, and are replete (2817 pg/mL) - Monitor fluid balance, consider resuming maintenance fluids. - Recheck BMP, mag, Phos in a.m., replenish as needed - Telemetry well electrolytes are repleted - One more day with central line - Medically stable once electrolytes stabilize. (7) Tachyarrhythmia: Impression: Persistent tachycardia. Infection as above that has not yet been adequately treated. This more likely explains her tachycardia. She has not been responsive metoprolol. Discussed with the patient 10/04. She says her heart rates always been fast around 100-110. Other providers have noted this. She feels like 130 is faster than it typically is. She endorses that she is an anxious person. She endorses quite a bit of anxiety right now. Discussed trying something for anxiety, she is very reticent. Discussed Vistaril, she says she cannot take Benadryl because it causes psychosis. She says she cannot take propranolol because it causes a profound depression. Patient has been tachycardic since admission. Heart rates have been in the 120s to 130s. He EKG shows Sinus tachycardia. No concerning signs of atrial fibrillation, heart block or junctional rhythm. Consideration for sepsis physiology in the setting of tachycardia and leukocytosis. She has no other signs of end organ damage at this time. She may have a fever that is being masked by Tylenol, but unlikely. Intriguingly, she received 25 mg metoprolol tartrate without much change in her heart rate on 10/04. - Treating infection as above - Discontinue Lopressor - Nursing is continuing to encourage her to treat her pain and anxiety. (8) Delirium: Impression: Suspect she is at or near her baseline. Treating infection as above. Improved with sleep. Supportive of hospital induced delirium as initially suspected. Patient is at times hallucinating. At times she is ruminative. Overall she shows difficulty with attention. It waxes and wanes most consistent with a delirium. Will make every effort to maintain normal sleep-wake cycle - Delirium precautions - Discontinue melatonin, patient refuses - Treat infection as above. - Avoid labs and alarms overnight - As needed Zyprexa ODT if needed for safety - Would avoid benzodiazepines in her demographic (9) Hypertension: Impression: Patient with a chronic history of hypertension. She has been hypertensive during this visit. She normally takes valsartan 240 mg/day. - Hold antihypertensives at this time - Resume valsartan at half dose 10/08 I spent a total of 38 minutes in the care of this patient today. This time was spent reviewing labs, vital signs, imaging, interviewing and examining the patient, and discussing plan of care with them and their other care providers. Refeeding syndrome resolving. Managing 2 or more chronic stable conditions and acute illness with systemic symptoms. Review of data as above. Prescription drug management as above. [id number]
[2025-10-07] MEDS: cefTRIAXone 1 GM in SODIUM CHLORIDE 0.9% MINIBAG 100 ML IV SCH (18:02)
[2025-10-07] MEDS: CIPROFLOXACIN 250 MG TABLET PO SCH (21:14)
[2025-10-08 04:21] LABS: HCT - HEMATOCRIT 33.7 % (37.0-47.0); HGB - HEMOGLOBIN 11.2 g/dL (12.0-16.0); MEAN PLATELET VOLUME 8.0 fL (7.9-10.8); NRBC ABSOLUTE COUNT (AUTO) 0.00 x10^3/uL; NUCLEATED RED BLOOD CELLS AUTO 0.0 /100WBC; PLT - PLATELET COUNT 299 10^3/uL (130-450); RED CELL DISTRIBUTION WIDTH 12.2 % (12.0-15.0)
[2025-10-08 04:34] LABS: BUN - BLOOD UREA NITROGEN 6.0 mg/dL (6-20); CARBON DIOXIDE - CO2 27.0 mmol/L (21-32); CREATININE 0.5 mg/dL (0.6-1.3); GFR - MDRD 119.0 (>89)
[2025-10-08] MEDS: FAMOTIDINE 20 MG TABLET PO SCH (06:48)
--- NOTE | 2025-10-08 07:08 | PROVIDER PROGRESS NOTE ---
Subjective General Admit Date: 10/02/25 Procedure Date: 10/02/25 Post Op Days: 6 Procedure Performed: Ex-lap, sigmoidectomy w/ end colostomy Other Other Information/Narrative: Doing well this morning, tolerating a regular diet, OOB with assistance, good output via the ostomy. Still with high serous drain outputs, but JACQUE Cr low. Wound Assessment Wound/Incisions: positive Healing well Drain Type: 19 Round JACQUE Drain Output Description: Serous Approximate mls Output: 50cc in the canister Review of Systems Status of ROS: 10 or more systems reviewed and unremarkable except as noted in history and below Exam Exam Vital Signs: Vital Signs x48h Temp Pulse Resp BP Pulse Ox 10/08/25 04:45 36.4 C L 112 H 16 144/88 H 98 Constitutional normal general appearance and no apparent distress HENMT normocephalic and head/scalp atraumatic Eyes conjunctivae normal and no scleral icterus Dried lips with signs of severe dehydration. Neck/C-Spine visual inspection normal Respiratory normal respiratory effort Cardiovascular heart rate abnormal (tachycardic) and regular rhythm noted Gastrointestinal Abdomen non distended and appropriately tender to palpation, incision healing well with eli in situ, ostomy appliance with stool in the bag, ostomy appears viable, JACQUE to the RLQ with serous in the canister. Extremities normal to inspection Neurology GCS 15 Psychiatry cooperative and affect normal Skin skin color normal Impression/Plan Problem List (1) Sigmoid volvulus: (2) Acute cystitis: (3) Leukocytosis: (4) Refeeding syndrome: (5) Hypokalemia: (6) Hypophosphatemia: (7) Tachyarrhythmia: (8) Delirium: (9) Hypertension: Plan 72 yo F w/out significant past medical history who presented on 10/02 with multiple days of abdominal distension and pain. On physical exam she has significant abdominal distension and tympany concerning for obstruction or free air. CT demonstrates acute sigmoid volvulus without signs of perforation. 10/02 Underwent bedside proctoscopy with attempted detorsion of the sigmoid so was taken to the OR for Ex-lap, sigmoidectomy and end colostomy which she tolerated well. Continuing to have good ostomy output, tolerating a regular diet, JACQUE drain output still high but Cr low and decreased from directly after surgery. - Diet as tolerated - Encourage OOB/ambulation - Pain and nausea control as needed - Keep JACQUE drain until outputs decreased - Dispo planning
[2025-10-08] MEDS: LOSARTAN 50 MG TABLET PO SCH (08:11)
[2025-10-08] MEDS: POTASSIUM CHLORIDE 20 MEQ TABLET PO ONE (08:57)
[2025-10-08] MEDS: POTASSIUM PHOSPHATE 15 MMOL in SODIUM CHLORIDE 0.9% 250 ML IV SCH (09:09)
[2025-10-08] MEDS: ONDANSETRON ODT 4 MG TABLET TL PRN (11:29)
--- NOTE | 2025-10-08 13:45 | WOUND CARE CONSULTATION ---
Referring Provider Name of Referring Provider:: Dr. Charity Waters Consult Date: 10/07/25 CC & HPI Chief Complaint Chief Complaint: Need for ostomy education. History Obtained From Records Reviewed: EMR. 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 Unable to reduce with proctostomy, so patient underwent Ex-lap, sigmoidectomy and end colostomy on 10/02 which she tolerated well. Continues to have good ostomy output per Dr. Waters's note. Will be discharging to rehab facility but needs to have initiation of ostomy education. Meds/Allgy Home Medications Ambulatory Orders Medication Instructions Recorded Confirmed atorvastatin 20 mg tablet 20 mg PO QPM 10/02/25 valsartan 160 mg tablet 160 mg PO QAM 10/02/2510/02 valsartan 80 mg tablet 80 mg PO QAM 10/02/25 Allergies Allergies Allergy/AdvReac Type Severity Reaction Status Date / Time diphenhydramine (From Allergy Mild Paranoid Verified 10/02/25 10:03 Benadryl) PFSH Active Problems All Active Problems (Updated 10/08/25 @ 13:38 by ROJAS Yeager) Colostomy care (Acute) Acute cystitis (Acute) Leukocytosis (Acute) Tachyarrhythmia (Acute) Delirium (Acute) Refeeding syndrome (Acute) Goals of care, counseling/discussion (Acute) Hypophosphatemia (Acute) Spinal stenosis (Acute) Hypertension (Chronic) Hypokalemia (Acute) Dehydration (Acute) Sigmoid volvulus (Acute) Medical History Medical History (Updated 10/08/25 @ 13:38 by ROJAS Yeager) Anxiety Hyperlipidemia Hypercholesterolemia Surgical History Surgical History (Updated 10/02/25 @ 17:15 by Lilian Townsend CRNA) H/O: hysterectomy Social History Social History (Updated 10/02/25 @ 17:18 by Lilian Townsend CRNA) Smoking Status: Former smoker If you are a former smoker, when did you quit? (Date/Year): 1980 Level: Independent Do you feel safe in your home environment?: Yes History of physical, verbal, emotional, or financial abuse?: No ETOH Use: None Substance Use: denies use POLST POLST CPR Status: Attempt Resuscitation (CPR) Level of Medical Intervention: Full Treatment Expanded Wound Exam Vital Signs Vital Signs: Vital Signs Temperature 36.4 C L 10/08/25 04:45 Pulse Rate 112 H 10/08/25 04:45 Respiratory Rate 16 10/08/25 04:45 Blood Pressure 144/88 H 10/08/25 04:45 O2 Saturation 98 10/08/25 04:45 If not protocol: Oxygen Flow, liters/minute 95 10/03/25 09:50 Physician Wound Note Wound Note Wound Note: Stoma located to the LLQ of the abdomen. Stoma visualized thru transparent ostomy pouch. Approximate stoma measurements 45 x 35 mm. Stoma is pink in color but not beefy red. Stoma elevated above skin level and is edematous. Fecal output present within the pouch. Conclusion and Plan Problem List (1) Sigmoid volvulus: (2) Acute cystitis: (3) Leukocytosis: (4) Refeeding syndrome: (5) Hypokalemia: (6) Hypophosphatemia: (7) Tachyarrhythmia: (8) Delirium: (9) Hypertension: (10) Colostomy care: Assessment/Plan: Brief visit with the pt yesterday. Provided her with printed information from [facility] regarding colostomy formation and care. Pt stated she does better with printed material and does not engage in much computer/internet activities. Returned to her bedside today with additional ostomy education; utilized a copy of [facility] and a copy of ostomy supplies catalog. Have discussed pt with Dr. Waters and with Floridalma, rehabilitation caseworker. With planned discharge to a rehab facility, will forgo formal ostomy education during her in pt stay. Will have surgeon place a referral to the out pt wound clinic for complete ostomy education prior to her discharge from the rehab facility. In this way, pt can come to the out pt clinic when she has recuperated and will be better prepared for the education. Would like this to occur before she is discharged home. Have discussed providing her with at least 5 wafers/5 pouches on her discharge to allow time for the rehab center to acquire necessary items. Notified the floor RN of this need and requested they pass it on in each shift report to ensure this occurs. Will plan to check in with the pt at least one additional time. Pt stated she has been reading the information I provided to her yesterday but denied any questions at this time. Pt very appreciative of having written information. Spent approx 30 mins in pt's care, approx 20 mins face to face and 10 min time charting. Results Lab Results: Laboratory Results Sodium 133 mmol/L (135-145) L 10/08/25 04:13 Potassium 2.9 mmol/L (3.5-4.5) L 10/08/25 04:13 Chloride 102 mmol/L (101-111) 10/08/25 04:13 Carbon Dioxide 27 mmol/L (21-32) 10/08/25 04:13 Anion Gap 4.0 (6-13) L 10/08/25 04:13 BUN 6 mg/dL (6-20) 10/08/25 04:13 Creatinine 0.5 mg/dL (0.6-1.3) L 10/08/25 04:13 Glucose 149 mg/dL (74-104) H 10/08/25 04:13 Calcium 7.4 mg/dL (8.5-10.3) L 10/08/25 04:13 Total Bilirubin 0.5 mg/dL (0.2-1.0) 10/04/25 13:13 AST 20 IU/L (10-42) 10/04/25 13:13 ALT 22 IU/L (10-60) 10/04/25 13:13 Alkaline Phosphatase 53 IU/L (42-121) 10/04/25 13:13 Total Protein 3.9 g/dL (6.4-8.9) L 10/04/25 13:13 Albumin 2.6 g/dL (3.2-5.5) L 10/04/25 13:13 Globulin 1.3 g/dL (2.1-4.2) L 10/04/25 13:13 Albumin/Globulin Ratio 2.0 (1.0-2.2) 10/04/25 13:13 10/05/25 07:48 Blood - Left Arm Blood Culture - Preliminary NO GROWTH AFTER 2 DAYS 10/05/25 07:40 Blood - Right Port Blood Culture - Preliminary NO GROWTH AFTER 2 DAYS 10/05/25 10:10 Peritoneal Fluid Body Fluid Culture - Preliminary 10/05/25 12:14 Urine,Random Urine Culture - Final Pseudomonas Aeruginosa
--- NOTE | 2025-10-08 15:26 | PROVIDER PROGRESS NOTE ---
Subjective Prog Note Date Prog Note Date: 10/08/25 Prog Note Time: 15:26 Subjective Subjective: No acute events overnight. The patient's labs this morning indicate that she is again hypokalemic. Phosphorus not repeated today. Her leukocytosis is resolved. Her pulse is normalizing. She is feeling well. Her son-in-law, Luis Antonio, was able to come to bedside yesterday. She feels a lot less anxiety knowing that some of this stresses being shared. She was trying to do all this on her own. She denies any fevers or chills, chest pain, dyspnea, abdominal pain, nausea or vomiting. Still having some significant output into her ostomy. JACQUE drain is slowing down. [place] changed by general surgery yesterday. She has ample urine output. Close to 2 L. Current Medications Current Medications Current Medications: Current Medications Generic Name Dose Route Start Last Admin Trade Name Freq PRN Reason Stop Dose Admin Acetaminophen 1,000 mg 10/03/25 22:00 10/08/25 13:48 Acetaminophen 500 Mg Tablet PO 1,000 mg TID RADHA Administration Atorvastatin Calcium 20 mg 10/06/25 21:00 10/07/25 21:14 Atorvastatin 10 Mg Tablet PO 20 mg QPM RADHA Administration Ciprofloxacin 250 mg 10/07/25 21:00 10/08/25 08:11 Ciprofloxacin 250 Mg Tablet PO 10/12/25 09:01 250 mg BID RADHA Administration Famotidine 20 mg 10/08/25 07:00 10/08/25 06:48 Famotidine 20 Mg Tablet PO 20 mg 0700 RADHA Administration Hydromorphone HCl 1 mg 10/04/25 11:02 Hydromorphone 1 Mg/Ml Carpuject IVP Q2H PRN Severe Pain (Level 7-10) Hydroxyzine Pamoate 25 mg 10/03/25 17:46 10/07/25 23:50 Hydroxyzine Pamoate 25 Mg Capsule PO 25 mg Q6H PRN Administration Anxiety Potassium Phosphate 15 mmol/ 255 mls @ 63.75 mls/hr 10/08/25 09:00 10/08/25 13:48 Sodium Chloride IV 10/08/25 16:59 64 mls/hr Q4H RADHA Administration Losartan Potassium 50 mg 10/08/25 09:00 10/08/25 08:11 Losartan 50 Mg Tablet PO 50 mg DAILY RADHA Administration Magnesium Oxide 400 mg 10/06/25 08:00 10/08/25 08:11 Magnesium Oxide 400 Mg Tablet PO 400 mg DAILYWM RADHA Administration Olanzapine 5 mg 10/03/25 17:46 Olanzapine Odt 5 Mg Tablet TL DAILY PRN Agitation Ondansetron HCl 4 mg 10/02/25 15:32 10/08/25 11:29 Ondansetron Odt 4 Mg Tablet TL 4 mg Q6HR PRN Administration Nausea / Vomiting Ondansetron HCl 4 mg 10/02/25 15:32 10/06/25 05:15 Ondansetron 4 Mg/2 Ml Vial IVP 4 mg Q6HR PRN Administration Nausea / Vomiting Oxycodone HCl 5 mg 10/02/25 15:32 10/06/25 05:14 Oxycodone 5 Mg Tablet PO 5 mg Q4HR PRN Administration Pain 5 to 7 Oxycodone HCl 10 mg 10/02/25 15:32 Oxycodone 5 Mg Tablet PO Q4HR PRN Pain 8 to 10 Sodium Chloride 10 ml 10/02/25 17:00 10/08/25 08:11 Sodium Chloride Flush 0.9% 10 Ml Syringe IVP 10 ml 0100,0900,1700 RADHA Administration Sodium Chloride 10 ml 10/02/25 15:32 10/07/25 10:25 Sodium Chloride Flush 0.9% 10 Ml Syringe IVP 10 ml PRN PRN Administration NEEDED PER PROVIDER ORDERS Tamsulosin HCl 0.4 mg 10/06/25 21:00 10/07/25 21:14 Tamsulosin 0.4 Mg Capsule PO 0.4 mg NIGHTLY RADHA Administration Throat Lozenges 1 lozenge 10/06/25 07:52 Benzocaine/Menthol Lozenge MM Q2HR PRN Throat pain Objective Vital Signs/Intake & Output Reviewed Vital Signs: Yes Vital Signs: Vital Signs x48h Temp Pulse Resp BP Pulse Ox 10/08/25 13:00 36.7 C 78 18 138/81 H 97 Intake & Output: Intake & Output 10/05/25 10/06/25 10/07/25 10/08/25 23:59 23:59 23:59 23:59 Intake Total 5063.2 / 5063.2 1260 / 1260 2215 / 2215 855 / 855 Output Total 3285 / 3285 1935 / 1935 4348 / 4348 2920 / 2920 Balance 1778.2 / 1778.2 -5 / - -2132 / -2132 -2064 / -2064 Weight (kg) 66 kg 67.5 kg 66.5 kg 66.5 kg Objective Comments/Other: GEN: No acute distress, Lying in bed HEENT: NC/AT, normal appearance of external ears and nose. Hearing baseline. Cardiac: Tachycardic and regular. No murmurs appreciated. Pulm: Lungs CTA bilaterally, no cough, no wheezes. Normal effort on room air Abdomen: Improvement in distention, mild distention still present. Soft, nontender. Ostomy Appliance in left lower quadrant, Soft stool output. JACQUE drain continues with serous drainage. Surgical dressing CDI. Extremities: Moves all 4 extremities equally. Normal tone. Neuro: Face symmetric, CN II through XII intact grossly. No focal neurologic deficit. No tremor or tongue fasciculations. Psych: Mood elated. Reactive affect. Mood lability. Good fund of knowledge. Lab Results 10/08/25 04:13 10/08/25 04:13 Other Labs: Lab Results x24hrs 10/08/25 Range/Units 04:13 WBC 9.4 (4.8-10.8) x10^3/uL RBC 3.68 L (4.20-5.40) 10^6/uL Hgb 11.2 L (12.0-16.0) g/dL Hct 33.7 L (37.0-47.0) % MCV 91.6 (81.0-99.0) fL MCH 30.4 (27.0-31.0) pg MCHC 33.2 (32.0-36.0) g/dL RDW 12.2 (12.0-15.0) % Plt Count 299 (130-450) 10^3/uL MPV 8.0 (7.9-10.8) fL Neut # (Auto) 6.4 (1.5-6.6) 10^3/uL Lymph # (Auto) 1.7 (1.5-3.5) 10^3/uL [place] # (Auto) 0.9 (0.0-1.0) 10^3/uL Eos # (Auto) 0.2 (0.0-0.7) 10^3/uL Baso # (Auto) 0.0 (0.0-0.1) 10^3/uL Absolute Nucleated RBC 0.00 x10^3/uL Nucleated RBC % 0.0 /100WBC Sodium 133 L (135-145) mmol/L Potassium 2.9 L (3.5-4.5) mmol/L Chloride 102 (101-111) mmol/L Carbon Dioxide 27 (21-32) mmol/L Anion Gap 4.0 L (6-13) BUN 6 (6-20) mg/dL Creatinine 0.5 L (0.6-1.3) mg/dL Estimated GFR (MDRD) 119 (>89) Glucose 149 H (74-104) mg/dL Calcium 7.4 L (8.5-10.3) mg/dL Assessment/Plan Problem List (1) Sigmoid volvulus: (2) Colostomy care: Impression: Stable and improved. Minimal pain. She seems to be doing well. No narcotic usage over the last 24 hours. Recall the patient presented with nearly 2 weeks of constipation. She had progressive abdominal distention and pain associated. She was found on imaging to have sigmoid volvulus with distal transition point on CT. Taken to surgery on 10/02 with successful repair. Colostomy in place left lower abdomen. Having high-volume stool output. Her JACQUE drain has been putting out significant output, It appears mostly serous. It is cloudy and murky. Qualitatively, her urine is equipment oiler and clearer. She could still have a slow bladder leak, but seems unlikely. Most likely she has third spacing in the setting of her hypoalbuminemia. She has had persistent high output from her drain, it is starting to slow down. Creatinine from the sample was sent on 10/07. It is not urine. It is just body fluid. No bladder injury from the surgery. Larger drain reservoir was placed by general surgery on 10/07. - General Surgery following, suspicion she will discharge with drain in place in her abdomen - Diet managed by general surgery - Continue to monitor strict I/O - Patient not in much pain, will step back to 650 mg Tylenol every 4 as needed - As needed oxycodone available for pain - PT Recommended DC to SNF, functioning below baseline. She is been accepted at [facility] in [place], pending Auth - Wound ostomy nurse was consulted by general surgery 10/07 and 10/08, information given. - Continue replacement of her electrolytes. (3) Acute cystitis: (4) Leukocytosis: Impression: Leukocytosis normalized. Her heart rate has been coming down somewhat, as below. Remains afebrile. Recall the patient had a persistent leukocytosis since her presentation. Initially this was thought to be a stress response. After it stopped improving at 19,000, we broadened her infectious workup. This did reveal bacteriuria with Pseudomonas. She denies dysuria, but she is had urinary retention postoperatively. Required straight cath overnight 10/04 Patient had a chest x-ray, blood cultures, C. difficile studies, and cell count of her JACQUE drain output which were all unremarkable. - Oral ciprofloxacin, empiric 5-day treatment, EOT 10/12 - Follow-up blood cultures, NGTD - CBC, BMP a.m. - Starting probiotic this evening (5) Refeeding syndrome: (6) Hypokalemia: (7) Hypophosphatemia: Impression: Replacing K-Phos again today. Still has central line in place. She is autodiuresing. Patient was not eating for several days prior to arrival. She ran out of food at her home and was unable to get out of her house because she was so unwell. She had critically low potassium on arrival. She has a central line placed and has been removed seeping potassium and phosphate replacement. Vitamin B12 levels were checked at the patient's request, and are replete (2817 pg/mL) - Monitor fluid balance, consider resuming maintenance fluids. - Recheck BMP, mag, Phos in a.m., replenish as needed - Telemetry well electrolytes are repleted - Remove central line in her right IJ when clinically indicated. - Medically stable once electrolytes stabilize, ideally 10/09 (8) Tachyarrhythmia: Impression: She is persistently tachycardia. Sinus tachycardia. Was treating infection above and thought her rate was improving, however she consequently also had her son-in-law come and has alleviated much of her anxiety. I think most of her tachycardia is likely anxiety mediated. Was better throughout the day most of the day on 10/08 while her son-in-law was at bedside. Discussed with the patient 10/04. She says her heart rates always been fast around 100-110. Other providers have noted this. She feels like 130 is faster than it typically is. She endorses that she is an anxious person. Discussed trying something for anxiety, she is very reticent. Discussed Vistaril, she says she cannot take Benadryl because it causes psychosis. She says she cannot take propranolol because it causes a profound depression. Trialed her on Lopressor and at 50 twice daily her rates did not change. EKG shows Sinus tachycardia. No concerning signs of atrial fibrillation, heart block or junctional rhythm. - Treating infection as above - Nursing is continuing to encourage her to treat her pain and anxiety - As needed Vistaril available - Would be cautious with benzodiazepines in her age group. (9) Delirium: Impression: Suspect she is at or near her baseline. Treating infection as above. Improved with sleep. Supportive of hospital induced delirium as initially suspected. Patient is at times hallucinating. At times she is ruminative. Overall she shows difficulty with attention. It waxes and wanes most consistent with a delirium. Will make every effort to maintain normal sleep-wake cycle - Delirium precautions - Patient was on melatonin initially, this helped her somewhat. She now refuses it. - Treat infection as above. - Avoid labs and alarms overnight - As needed Zyprexa ODT if needed for safety - Would avoid benzodiazepines in her demographic (10) Hypertension: Impression: Patient with a chronic history of hypertension. She has been hypertensive during this visit. She normally takes valsartan 240 mg/day. - She has been started back on formula equivalent with losartan. Not yet at her dose equivalent - Increase losartan to 100 mg tomorrow I spent a total of 43 minutes in the care of this patient today. This time was spent reviewing labs, vital signs, imaging, interviewing and examining the patient, and discussing plan of care with them and their other care providers. Patient still has refeeding syndrome which is an acute illness with threat to life bodily function. Prescription management as above. [id number]
[2025-10-08] MEDS ORDERED: ACETAMINOPHEN 325 MG TABLET PO PRN (17:49)
[2025-10-08] MEDS: SACCHAROMYCES BOULARDII 250 MG CAPSULE PO SCH (18:30)
[2025-10-09 05:52] LABS: HCT - HEMATOCRIT 33.5 % (37.0-47.0); HGB - HEMOGLOBIN 11.2 g/dL (12.0-16.0); MEAN PLATELET VOLUME 8.4 fL (7.9-10.8); NRBC ABSOLUTE COUNT (AUTO) 0.00 x10^3/uL; NUCLEATED RED BLOOD CELLS AUTO 0.0 /100WBC; PLT - PLATELET COUNT 354 10^3/uL (130-450); RED CELL DISTRIBUTION WIDTH 12.2 % (12.0-15.0)
[2025-10-09 06:09] LABS: PHOSPHORUS 2.6 mg/dL (2.5-5.0)
[2025-10-09 06:16] LABS: BUN - BLOOD UREA NITROGEN 6.0 mg/dL (6-20); CARBON DIOXIDE - CO2 28.0 mmol/L (21-32); CREATININE 0.4 mg/dL (0.6-1.3); GFR - MDRD 154.0 (>89)
--- NOTE | 2025-10-09 07:58 | PROVIDER PROGRESS NOTE ---
Subjective General Admit Date: 10/02/25 Procedure Date: 10/02/25 Post Op Days: 7 Procedure Performed: Ex-lap, sigmoidectomy w/ end colostomy Other Other Information/Narrative: Doing well this morning, in good spirits. States she had an eventful and traumatic night but does not want to review the events with me and requests I just check the documentation instead so she doesnt have to relive it. Passing flatus and BM's via the ostomy, tolerating a diet, OOB w/ assistance, JACQUE output still high. Wound Assessment Wound/Incisions: positive Healing well Drain Type: 19 Round JACQUE Drain Output Description: Serous Approximate mls Output: 30cc in the canister Review of Systems Status of ROS: 10 or more systems reviewed and unremarkable except as noted in history and below Exam Exam Vital Signs: Vital Signs x48h Temp Pulse Pulse Resp BP Pulse Ox 10/09/25 04:49 101 H 10/09/25 04:30 36.5 C 122 H 18 134/89 H 98 10/09/25 00:02 36.5 C 109 H 16 133/78 H 98 Constitutional normal general appearance and no apparent distress HENMT normocephalic and head/scalp atraumatic Eyes conjunctivae normal and no scleral icterus Neck/C-Spine visual inspection normal Respiratory normal respiratory effort Cardiovascular heart rate abnormal (tachycardic) and regular rhythm noted Gastrointestinal Abdomen non distended and appropriately tender to palpation, incision healing well with eli in situ, ostomy appliance with stool in the bag, ostomy appears healthy pink and viable, JACQUE to the RLQ with serous in the canister. Extremities normal to inspection Neurology GCS 15 Psychiatry oriented x3, cooperative and affect normal Skin skin color normal Impression/Plan Problem List (1) Sigmoid volvulus: (2) Colostomy care: (3) Acute cystitis: (4) Leukocytosis: (5) Refeeding syndrome: (6) Hypokalemia: (7) Hypophosphatemia: (8) Tachyarrhythmia: (9) Delirium: (10) Hypertension: Plan 72 yo F w/out significant past medical history who presented on 10/02 with multiple days of abdominal distension and pain. On physical exam she has significant abdominal distension and tympany concerning for obstruction or free air. CT demonstrates acute sigmoid volvulus without signs of perforation. 10/02 Underwent bedside proctoscopy with attempted detorsion of the sigmoid so was taken to the OR for Ex-lap, sigmoidectomy and end colostomy which she tolerated well. Continuing to have good ostomy output, tolerating a regular diet, JACQUE drain output still high. - Diet as tolerated - Encourage OOB/ambulation - Pain and nausea control as needed - Keep JACQUE drain until outputs decreased - Dispo planning
[2025-10-09] MEDS: POTASSIUM CHLORIDE 20 MEQ TABLET PO ONE (09:02)
[2025-10-09] MEDS: LOSARTAN 50 MG TABLET PO SCH (09:03)
[2025-10-09] MEDS: POTASSIUM CHLOR 10 MEQ/100 ML 10 MEQ/100 ML BAG IV SCH (09:04)
--- NOTE | 2025-10-09 10:20 | PROVIDER PROGRESS NOTE ---
Subjective Subjective Subjective: This morning, patient is doing well. She has very minimal abdominal pain. She denies any nausea, vomiting, fevers, chills. She had some difficulty sleeping overnight due to nightmares. She is in good spirits though and is looking forward to feeling stronger. Current Medications Current Medications Current Medications: Current Medications Generic Name Dose Route Start Last Admin Trade Name Freq PRN Reason Stop Dose Admin Acetaminophen 650 mg 10/08/25 17:49 Acetaminophen 325 Mg Tablet PO Q4HR PRN Pain 1 to 4, or Fever Atorvastatin Calcium 20 mg 10/06/25 21:00 10/08/25 20:10 Atorvastatin 10 Mg Tablet PO 20 mg QPM RADHA Administration Ciprofloxacin 250 mg 10/07/25 21:00 10/09/25 09:03 Ciprofloxacin 250 Mg Tablet PO 10/12/25 09:01 250 mg BID RADHA Administration Famotidine 20 mg 10/08/25 07:00 10/09/25 06:05 Famotidine 20 Mg Tablet PO 20 mg 0700 RADHA Administration Hydromorphone HCl 1 mg 10/04/25 11:02 Hydromorphone 1 Mg/Ml Carpuject IVP Q2H PRN Severe Pain (Level 7-10) Hydroxyzine Pamoate 25 mg 10/03/25 17:46 10/09/25 01:42 Hydroxyzine Pamoate 25 Mg Capsule PO 25 mg Q6H PRN Administration Anxiety Potassium Chloride 10 meq in 100 mls @ 100 mls/hr 10/09/25 09:00 10/09/25 10:07 Potassium Chloride IV 10/09/25 10:59 100 mls/hr Q1H RADHA Infusion Losartan Potassium 100 mg 10/09/25 09:00 10/09/25 09:03 Losartan 50 Mg Tablet PO 100 mg DAILY RADHA Administration Magnesium Oxide 400 mg 10/06/25 08:00 10/09/25 09:04 Magnesium Oxide 400 Mg Tablet PO 400 mg DAILYWM RADHA Administration Olanzapine 5 mg 10/03/25 17:46 Olanzapine Odt 5 Mg Tablet TL DAILY PRN Agitation Ondansetron HCl 4 mg 10/02/25 15:32 10/08/25 11:29 Ondansetron Odt 4 Mg Tablet TL 4 mg Q6HR PRN Administration Nausea / Vomiting Ondansetron HCl 4 mg 10/02/25 15:32 10/06/25 05:15 Ondansetron 4 Mg/2 Ml Vial IVP 4 mg Q6HR PRN Administration Nausea / Vomiting Oxycodone HCl 5 mg 10/02/25 15:32 10/06/25 05:14 Oxycodone 5 Mg Tablet PO 5 mg Q4HR PRN Administration Pain 5 to 7 Oxycodone HCl 10 mg 10/02/25 15:32 Oxycodone 5 Mg Tablet PO Q4HR PRN Pain 8 to 10 Saccharomyces Boulardii 500 mg 10/08/25 18:00 10/09/25 09:04 Saccharomyces Boulardii 250 Mg Capsule PO 500 mg BIDWM RADHA Administration Sodium Chloride 10 ml 10/02/25 17:00 10/09/25 09:04 Sodium Chloride Flush 0.9% 10 Ml Syringe IVP 10 ml 0100,0900,1700 RADHA Administration Sodium Chloride 10 ml 10/02/25 15:32 10/07/25 10:25 Sodium Chloride Flush 0.9% 10 Ml Syringe IVP 10 ml PRN PRN Administration NEEDED PER PROVIDER ORDERS Tamsulosin HCl 0.4 mg 10/06/25 21:00 10/08/25 20:10 Tamsulosin 0.4 Mg Capsule PO 0.4 mg NIGHTLY RADHA Administration Throat Lozenges 1 lozenge 10/06/25 07:52 Benzocaine/Menthol Lozenge MM Q2HR PRN Throat pain Objective Vital Signs/Intake & Output Reviewed Vital Signs: Yes Vital Signs: Vital Signs x48h Temp Pulse Pulse Resp BP Pulse Ox 10/09/25 09:33 97.9 F 124 H 18 121/79 98 10/09/25 04:49 101 H 10/09/25 04:30 97.7 F 122 H 18 134/89 H 98 Intake & Output: Intake & Output 10/06/25 10/07/25 10/08/25 10/09/25 23:59 23:59 23:59 23:59 Intake Total 1260 / 1260 2215 / 2215 1330 / 1330 90 / 90 Output Total 1935 / 1935 4348 / 4348 4487 / 4487 1435 / 1435 Balance -675 / -675 -2133 / -2133 -3157 / -3157 -1345 / -1345 Weight (kg) 67.5 kg 66.5 kg 66.5 kg 65.5 kg Objective General Appearance: positive No acute distress and Alert; negative Anxious Eyes Bilateral: positive Normal inspection, PERRL and EOMI ENT: positive ENT inspection nml, Pharynx nml and No signs of dehydration Neck: positive Nml inspection, Thyroid nml and No JVD Respiratory: positive Chest non-tender, No respiratory distress and Breath sounds nml; negative Wheezes, Rales or Rhonchi Cardiovascular: positive No murmur, No gallop and Tachycardia; negative Systolic murmur Abdomen: positive Non-tender, No organomegaly, No distention and Other (Mildly distended, soft, non-tender. Ostomy Appliance in left lower quadrant, Soft stool output. JACQUE drain continues with serous drainage. Surgical eli in midline with no active purulence or erythema noted. ); negative Guarding or Splenomegaly Back: positive Nml inspection; negative CVA tenderness (R) or CVA tenderness (L) Skin: positive Color nml, No rash, Warm and Dry Extremities: positive Non-tender, Full ROM, Nml appearance and No pedal edema Neurologic/Psychiatric: positive Oriented x3, Motor nml and Mood/affect nml Lab Results 10/09/25 05:05 10/09/25 14:05 Other Labs: Lab Results x24hrs 10/09/25 Range/Units 05:05 WBC 10.6 (4.8-10.8) x10^3/uL RBC 3.71 L (4.20-5.40) 10^6/uL Hgb 11.2 L (12.0-16.0) g/dL Hct 33.5 L (37.0-47.0) % MCV 90.3 (81.0-99.0) fL MCH 30.2 (27.0-31.0) pg MCHC 33.4 (32.0-36.0) g/dL RDW 12.2 (12.0-15.0) % Plt Count 354 (130-450) 10^3/uL MPV 8.4 (7.9-10.8) fL Neut # (Auto) 7.0 H (1.5-6.6) 10^3/uL Lymph # (Auto) 2.1 (1.5-3.5) 10^3/uL Eagle # (Auto) 1.1 H (0.0-1.0) 10^3/uL Eos # (Auto) 0.3 (0.0-0.7) 10^3/uL Baso # (Auto) 0.0 (0.0-0.1) 10^3/uL Absolute Nucleated RBC 0.00 x10^3/uL Nucleated RBC % 0.0 /100WBC Sodium 132 L (135-145) mmol/L Potassium 3.0 L (3.5-4.5) mmol/L Chloride 102 (101-111) mmol/L Carbon Dioxide 28 (21-32) mmol/L Anion Gap 2.0 L (6-13) BUN 6 (6-20) mg/dL Creatinine 0.4 L (0.6-1.3) mg/dL Estimated GFR (MDRD) 154 (>89) Glucose 89 (74-104) mg/dL Calcium 7.5 L (8.5-10.3) mg/dL Phosphorus 2.6 (2.5-5.0) mg/dL Magnesium 1.6 L (1.7-2.3) mg/dL Assessment/Plan Problem List (1) Sigmoid volvulus: (2) Colostomy care: Impression: Stable and improved. Minimal pain. She seems to be doing well. No narcotic usage over the last 24 hours. Presented with nearly two weeks of constipation. She was found on imaging to have sigmoid volvulus with distal transition point on CT. Taken to surgery on 10/02 with successful repair. Colostomy in place left lower abdomen. Having high-volume stool output. Her JACQUE drain has been putting out significant output, it appears mostly serous. General Surgery following, suspicion she will discharge with drain in place in her abdomen. Diet managed by general surgery. Continue to monitor strict ins and outs. Continue Tylenol as needed for mild pain, oxycodone for moderate to severe pain. PT recommended discharge to SNF, functioning below baseline. Wound ostomy nurse was consulted by general surgery 10/07 and 10/08, information given. (3) Acute cystitis: (4) Leukocytosis: Impression: Leukocytosis normalized. Recall the patient had a persistent leukocytosis since her presentation. Initially this was thought to be a stress response. After it stopped improving at 19,000, we broadened her infectious workup. This did reveal bacteriuria with Pseudomonas. She denies dysuria, but she is had urinary retention postoperatively. Chery catheter remains in place. Continue oral ciprofloxacin, empiric 5-day treatment, EOT 10/12. (5) Refeeding syndrome: (6) Hypokalemia: (7) Hypophosphatemia: Impression: Replacing potassium again. Still has central line in place. Recheck BMP, mag, Phos in a.m., replenish as needed. Remove central line in her right IJ when clinically indicated, likely today or tomorrow. 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 Patient states heart rate always elevated, 100-110, and worsens with anxiety. Discussed Vistaril, she says she cannot take Benadryl because it causes psychosis. She says she cannot take propranolol because it causes a profound depression. Trialed her on Lopressor and at 50 twice daily her rates did not change. EKG shows sinus tachycardia. No concerning signs of atrial fibrillation, heart block or junctional rhythm. (9) Delirium: Impression: Resolved. Delirium precautions. (10) Hypertension: Impression: Patient with a chronic history of hypertension. She has been hypertensive during this visit. She normally takes valsartan 240 mg/day. - She has been started back on formula equivalent with losartan. Not yet at her dose equivalent.
[2025-10-09] MEDS ORDERED: MAGNESIUM SULFATE 1 GM/2 ML VIAL IVP STA (12:07)
[2025-10-09] MEDS: MAGNESIUM SULFATE 2 GRAM 2 GM/50 ML BAG IV ONE (13:09)
[2025-10-10 07:09] LABS: HCT - HEMATOCRIT 32.9 % (37.0-47.0); HGB - HEMOGLOBIN 11.3 g/dL (12.0-16.0); MEAN PLATELET VOLUME 8.4 fL (7.9-10.8); NRBC ABSOLUTE COUNT (AUTO) 0.00 x10^3/uL; NUCLEATED RED BLOOD CELLS AUTO 0.0 /100WBC; PLT - PLATELET COUNT 333 10^3/uL (130-450); RED CELL DISTRIBUTION WIDTH 12.4 % (12.0-15.0)
[2025-10-10 07:13] LABS: PHOSPHORUS 2.3 mg/dL (2.5-5.0)
[2025-10-10 07:39] LABS: BUN - BLOOD UREA NITROGEN 5.0 mg/dL (6-20); CARBON DIOXIDE - CO2 27.0 mmol/L (21-32); CREATININE 0.5 mg/dL (0.6-1.3); GFR - MDRD 119.0 (>89)
[2025-10-10] MEDS: POTASSIUM CHLORIDE 20 MEQ TABLET PO ONE (08:02)
--- NOTE | 2025-10-10 10:27 | Discharge Summary ---
Discharge Summary Admit Date: 10/02/25 Discharge Date: 10/10/25 Discharging Provider: Dr. Marlys Crockett [facility] DIAGNOSES Discharge Diagnoses with Status of Each Condition: Sigmoid volvulus, colostomy carestable improved, minimal pain. No narcotic usage over the last 24 to 48 hours. She was found to have sigmoid volvulus with distal transition point on CT and was taken to surgery on 10/02 with successful repair. Colostomy in place, having stool output. Will be discharging with JACQUE drain in placeshe will need follow-up in 1 to 2 weeks with general surgery to have this removed. Continue Tylenol as needed for pain. Oxycodone also sent to SNF, although she has not required this in over 48 hours. Continued ostomy changes. Continue soft diet. Acute cystitiscontinue 2 more days of oral ciprofloxacin for Pseudomonas urinary tract infection. End of treatment is 10/12. Leukocytosisresolved. Refeeding syndrome, hypokalemia, hypophosphatemiaresolved. Please recheck BMP, phosphorus in 3 to 5 days to ensure stability. Tachyarrhythmialikely inappropriate sinus tachycardia. Patient has chronically elevated heart rate of 100-110, which worsens with anxiety. Continue hydroxyzine as needed. Deliriumresolved. Hypertensioncontinue home valsartan 240 mg/day. HPI History of Present Illness: Per Dr. Dallas Felton: Exam is limited as the patient had just received IV Dilaudid for pain. She had just been through a central line placement as well as a proctoscopic attempted decompression. Yesenia is a 80-year-old female with past medical history of hypertension hyperlipidemia who presents with 2 weeks of constipation. She says that she had abdominal distention, constipation, and abdominal pain that started around 09/20. This is gotten worse over that time. She is unclear on why she has not come to seek care earlier. [place] regular [place]. She had a fall on the without any subsequent injury. But she was unable to get up given her abdominal pain and general malaise. Her pain and weakness have progressed over the last 2 weeks. She has been unable to leave the house. She has not eaten or drank anything since she ran out of groceries 2 to 3 days ago. She is not urinating. She denies any fever/chills, chest pain, dyspnea, nausea or vomiting. With regard to her history, she says that she is generally pretty healthy. She sees a ripsaw matcher with [facility]. She has primary care through [facility]. Her only medicines are valsartan and atorvastatin. She says she was only recently started on atorvastatin. She has had a hysterectomy previously. She was told after her last colonoscopy that she may have "an elongated colon", but she "never followed up on it". She is very perseverant about the fact that she has been working on finishing up her will over the last month. She thinks it is done, still needs to sign it. She wishes to be full code this hospitalization so she can get home and sign her well. She is quite ruminative about this. Since getting to the hospital, she was found to have a sigmoid volvulus on imaging. General surgery has been consulted. They attempted a proctoscopic decompression at bedside. This was unsuccessful. She is also found to be hypokalemic. She is receiving potassium supplementation before being taken back for sigmoidectomy by general surgery. Central line was placed by the anesthesiology team. CONSULTS | PROCEDURES Consultations: General surgery, physical therapy Procedures: Abdomen/pelvis CT10/02acute sigmoid volvulus with no evidence of perforation. Chest x-ray10/02no focal infiltrates. Rigid [id number]/26 with general surgery. Exploratory laparotomy with sigmoidectomy and [id number]/26 with general surgery. HOSPITAL COURSE Hospital Course: Patient is a 80-year-old female with a history of hypertension who presented for abdominal pain, constipation for over 2 weeks. Imaging on admission showed a sigmoid volvulus. General surgery was consulted, and they attempted a proctoscopy decompression at bedside which was unsuccessful. As such, she was taken for an exploratory laparotomy. This was successful, and she now has a colostomy in place. She also has a JACQUE drain in place. Her course was complicated by urinary tract infection for which she will complete a course of oral antibiotics in the outpatient. She also was persistently hypokalemic, hypophosphatemic, as well as hypomagnesemic. This is now resolved. She also had urinary retention and failed two trial of voids. Overall, she has been medically stabilized. She will need further rehabilitation before going home. She needs close follow-up with general surgeryin 1 to 2 weeks, they will remove the drain, and remove the eli in place. She will also need follow-up with urologythey will do trial of void and retention with Chery and outpatient. She should also follow-up with her primary care provider. Inst[facility] were provided to the [facility] to recheck her electrolytes in 3 to 5 days to ensure stability. She was discharged in stable condition to [facility]. ALLERGIES Allergies Allergy/AdvReac Type Severity Reaction Status Date / Time diphenhydramine (From Allergy Mild Paranoid Verified 10/02/25 10:03 Benadryl) MEDICATIONS Ambulatory Orders Medication Instructions Recorded Confirmed atorvastatin 20 mg tablet 20 mg PO QPM 10/02/25 valsartan 160 mg tablet 160 mg PO QAM 10/02/2510/02 valsartan 80 mg tablet 80 mg PO QAM 10/02/25 Saccharomyces boulardii 250 mg 500 mg (2 x 250 mg) PO BIDWM #30 10/10/25 capsule caps ciprofloxacin HCl 250 mg tablet 250 mg PO BID 3 days # 6 tabs 10/10/25 famotidine 20 mg tablet 20 mg PO 0700 #30 tabs 10/10 hydroxyzine pamoate 25 mg capsule 25 mg PO Q6H PRN Anx iety #20 caps 10/10/25 magnesium oxide 400 mg (241.3 mg 400 mg PO DAILYWM #30 tabs 10/10/25 magnesium) tablet ondansetron 4 mg disintegrating 4 mg translingual Q6HR PRN Nausea 10/10/25 tablet / Vomiting #30 tabs oxycodone 5 mg tablet 5 mg PO Q4HR PRN Pain 5 to 7 #7 10/10/25 tabs PHYSICAL EXAM AT DISCHARGE Vital Signs: Vital Signs x48h Temp Pulse Resp BP Pulse Ox 10/10/25 12:15 97.5 F L 107 H 16 127/76 100 10/10/25 09:57 96.6 F L 113 H 16 109/75 97 General Appearance: positive No acute distress and Alert; negative Anxious Eyes Bilateral: positive Normal inspection, PERRL and EOMI ENT: positive ENT inspection nml, Pharynx nml and No signs of dehydration Neck: positive Nml inspection, Thyroid nml and No JVD Respiratory: positive Chest non-tender, No respiratory distress and Breath sounds nml; negative Wheezes, Rales or Rhonchi Cardiovascular: positive No murmur, No gallop and Tachycardia; negative Systolic murmur Abdomen: positive Non-tender, No organomegaly, No distention and Other (Mildly distended, soft, non-tender. Ostomy Appliance in left lower quadrant, Soft stool output. JACQUE drain continues with serous drainage. Surgical eli in midline with no active purulence or erythema noted. ); negative Guarding or Splenomegaly Back: positive Nml inspection; negative CVA tenderness (R) or CVA tenderness (L) Skin: positive Color nml, No rash, Warm and Dry Extremities: positive Non-tender, Full ROM, Nml appearance and No pedal edema Neurologic/Psychiatric: positive Oriented x3, Motor nml and Mood/affect nml LABS 10/10/25 06:00 10/10/25 06:00 FOLLOW UP Follow Up: Follow-up with PCP. Follow-up with general surgery. Follow-up with ostomy nurse. Follow-up with urology. TIME SPENT Time Spent in Discharge (Minutes): 35 Discharge Plan Discharge Patient Disposition: 03 DC/Xfer Condition: Fair Prescriptions: New ciprofloxacin HCl 250 mg Tablet 250 mg PO BID 3 Days Qty: 6 0RF famotidine 20 mg Tablet 20 mg PO 0700 Qty: 30 0RF hydroxyzine pamoate 25 mg Capsule 25 mg PO Q6H PRN (Reason: Anxiety) Qty: 20 0RF magnesium oxide 400 mg (241.3 mg magnesium) Tablet 400 mg PO DAILYWM Qty: 30 0RF ondansetron 4 mg Tablet,Disintegrating 4 mg translingual Q6HR PRN (Reason: Nausea / Vomiting) Qty: 30 0RF oxycodone 5 mg Tablet 5 mg PO Q4HR PRN (Reason: Pain 5 to 7) Qty: 7 0RF Saccharomyces boulardii 250 mg Capsule 500 mg PO BIDWM Qty: 30 0RF Continued valsartan 160 mg tablet 160 mg PO QAM Patient Comments: TAKING BOTH 160MG AND 80 MG FOR 240MG TOTAL DOSE valsartan 80 mg tablet 80 mg PO QAM Patient Comments: TAKING BOTH 160MG AND 80 MG FOR 240MG TOTAL DOSE atorvastatin 20 mg tablet 20 mg PO QPM Activity Restrictions: Activity as Tolerated Diet: Regular Health Concerns: You came in after a few weeks of constipation. You were found to have what we call a sigmoid volvulus, and were taken to surgery on 10/02 with a successful repair. You now have a colostomy in place. Additionally, you have a drain in place that needs to be removed in the next 1 to 2 weeks. As such, it is very important that you follow-up with general surgery then so they can remove this drain and remove eli. While you have been here, your electrolytes have been low because you been having some high output from your stool. As such, it is important that you continue to follow-up on this. I have let your rehab facility know to recheck your levels in a few days. Additionally, you were found to have a urinary tract infection. You will need 2 more days of ciprofloxacin. Finally, you are found to be retaining urine. We tried removing the Chery catheter a couple times without success. As we discussed, I would like you to follow-up with urology in the outpatient setting in the next few weeks. I have attached their information here. They will guide you on removing this and doing a trial of void to ensure that you are urinating okay. Please continue close follow-up with your primary care provider, the general surgeon, and the urologist as stated above. We are glad you are feeling better, thank you for letting us take care of you. Print Language: Iraqi Patient Instructions: Surg Dc Stand Alone Forms: SNF Discharge, PCP List Follow-up Care: Demetrio Ralph MD [Provider Admit Priv/Credential, Urology] David Prasad MD [Provider Admit Priv/Credential, Surgery, General] - 1 Week Report called to and time (if no answer, doc. time of each call attempted): B ecky of [facility] at PT, at 1218 Vitals documented within 30 minutes of discharge?: Yes
[2025-10-10 12:17] VITALS: BP 127/76; TEMP 97.5; O2SAT 100
== END 2025-10-10 12:15 | DRG 330 ==
LOC: ED 09:46 → ICU 13:38 → MS3 10-06 16:25
PROVIDERS: ADMIT Student in an Organized Health Care Education/Training Program; ATTEND Student in an Organized Health Care Education/Training Program
DX: R33.9 Retention of urine, unspecified; E87.6 Hypokalemia; E83.39 Other disorders of phosphorus metabolism; Z90.710 Acquired absence of both cervix and uterus; Z91.81 History of falling; Z87.891 Personal history of nicotine dependence; B96.5 Pseudomonas (aeruginosa) (mallei) (pseudomallei) as the cause of diseases classified elsewhere; E86.0 Dehydration; N13.30 Unspecified hydronephrosis; K56.2 Volvulus; R64 Cachexia; E83.42 Hypomagnesemia; I10 Essential (primary) hypertension; R00.0 Tachycardia, unspecified; F41.9 Anxiety disorder, unspecified; E78.5 Hyperlipidemia, unspecified; N30.00 Acute cystitis without hematuria; R41.0 Disorientation, unspecified; Z68.21 Body mass index [BMI] 21.0-21.9, adult